=== PATIENT | female | born 2000 | race Caucasian/White ===

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

== ENCOUNTER 2020-01-21 21:35 | Emergency (ER) | payer OTHER ==
[2020-01-21 22:55] LABS: Basophils % (A) 0 %; Eosinophils # (A) 0.2 k/uL (0-0.7); Eosinophils % (A) 2 %; HCT 38.1 % (34.0-46.0); HGB 12.9 gm/dL (11.4-16.0); Lymphocytes # (A) 3.2 k/uL (1.0-4.8); Lymphocytes % (A) 26 %; MCHC 33.8 g/dL (31.0-37.0); Mean Platelet Volume 8.8; Monocytes # (A) 0.5 k/uL (0-1.0); Monocytes % (A) 4 %; Neutrophils # (A) 8.3 k/uL (1.3-7.7); Neutrophils % (A) 67 %; Platelet Count 222 k/uL (150-450); RBC 4.28 m/uL (3.80-5.40); WBC 12.3 k/uL (4.0-11.0)
[2020-01-21 23:05] LABS: African American GFR (CKD) >90 (>60 ml/min/1.73 sqM); Anion Gap 5 mmol/L; Blood Urea Nitrogen 12 mg/dL (7-17); Calcium 9.2 mg/dL (8.4-10.2); Carbon Dioxide 28 mmol/L (22-30); Chloride 103 mmol/L (98-107); Glucose 85 mg/dL (74-99); Non-African American GFR(CKD) >90 (>60 ml/min/1.73 sqM); Potassium 3.7 mmol/L (3.5-5.1); Sodium 136 mmol/L (137-145)
[2020-01-21 23:22] LABS: HCG,Quantitative Serum 570.1 mIU/mL
[2020-01-22 00:08] LABS: Amorphous Sediment,Urine Occasional /hpf; Appearance,Urine Cloudy (Clear); Bacteria,Urine Rare /hpf; Bilirubin,Urine Negative (Negative); Blood,Urine Large (Negative); Color,Urine Yellow; Glucose,Urine (UA) Negative (Negative); Ketones,Urine Negative (Negative); Leukocyte Esterase,Urine Trace (Negative); Mucus,Urine Rare /hpf; Nitrite,Urine Negative (Negative); PH, Urine 6.5 (5.0-8.0); Protein,Urine Negative (Negative); RBC,Urine 136 /hpf (0-5); Specific Gravity,Urine 1.019 (1.001-1.035); Squamous Epithelial Cell,Urine 1 /hpf (0-4); Urobilinogen,Urine <2.0 mg/dL (<2.0); WBC,Urine 3 /hpf (0-5)
--- NOTE | 2020-01-22 00:15 | ED ---
General Adult HPI - General Source: patient, RN notes reviewed, old records reviewed Mode of arrival: ambulatory Limitations: no limitations <Mariano Hicks - Last Filed: 01/22/20 00:14> <Wilber Wade - Last Filed: 01/22/20 01:23> - General Chief complaint: Vaginal Bleeding Stated complaint: Vaginal bleeding, 16wks preg Time Seen by Provider: 01/21/20 21:52 - History of Present Illness Initial comments: 19-year-old female patient 16 weeks per ultrasound presents ED for evaluation of vaginal bleeding. Patient was the vaginal bleeding started earlier today initially a spotting of the bleeding is again slightly more heavy passing some small clots. Patient also reports suprapubic cramping. It has any other complaints. Patient did receive RhoGAM approximately 6 weeks ago. ( Mariano Hicks) - Related Data Previous Rx's Medication Instructions Recorded Ketorolac [Toradol] 10 mg PO Q6HR #12 tab 10/04/15 Omeprazole 20 mg PO BID #20 cap 07/13/17 Ondansetron Odt [Zofran Odt] 4 mg PO Q8HR PRN #12 tab 07/13/17 Allergies Allergy/AdvReac Type Severity Reaction Status Date / Time venom-honey bee Allergy Unknown Verified 01/21/20 21:42 [bee venom (honey bee)] Review of Systems ROS Other: All systems not noted in ROS Statement are negative. <Mariano Hicks - Last Filed: 01/22/20 00:14> ROS Other: All systems not noted in ROS Statement are negative. <Wilber Wade - Last Filed: 01/22/20 01:23> ROS Statement: Those systems with pertinent positive or pertinent negative responses have been documented in the HPI. Past Medical History Past Medical History: No Reported History Additional Past Medical History / Comment(s): UTI,kidney stones. History of Any Multi-Drug Resistant Organisms: None Reported Additional Past Surgical History / Comment(s): pre-cancerous lesion removed from scalp 2009. Past Psychological History: No Psychological Hx Reported Smoking Status: Never smoker Past Alcohol Use History: None Reported Past Drug Use History: None Reported <Mariano Hicks - Last Filed: 01/22/20 00:14> General Exam Limitations: no limitations <Mariano Hicks - Last Filed: 01/22/20 00:14> Course Vital Signs 01/21/20 21:37 Temperature 99.1 F Pulse Rate 76 Respiratory 16 Rate Blood Pressure 134/72 O2 Sat by Pulse 100 Oximetry Medical Decision Making - Lab Data Result diagrams: 01/21/20 22:46 01/21/20 22:46 <Mariano Hicks - Last Filed: 01/22/20 00:14> - Lab Data Result diagrams: 01/21/20 22:46 01/21/20 22:46 <Wilber Wade - Last Filed: 01/22/20 01:23> - Medical Decision Making 19-year-old female patient 6 weeks presents ED for vaginal bleeding. Patient signed out to Dr. Sanchez pending ultrasound. (Mariano Hicks) - Lab Data Lab Results 01/21/20 01/21/20 01/21/20 Range/Units 22:46 22:46 22:46 WBC 12.3 H (4.0-11.0) k/uL RBC 4.28 (3.80-5.40) m/uL Hgb 12.9 (11.4-16.0) gm/dL Hct 38.1 (34.0-46.0) % MCV 89.0 (80.0-100.0) fL MCH 30.0 (25.0-35.0) pg MCHC 33.8 (31.0-37.0) g/dL RDW 12.0 (11.5-15.5) % Plt Count 222 (150-450) k/uL Neutrophils % 67 % Lymphocytes % 26 % Monocytes % 4 % Eosinophils % 2 % Basophils % 0 % Neutrophils # 8.3 H (1.3-7.7) k/uL Lymphocytes # 3.2 (1.0-4.8) k/uL Monocytes # 0.5 (0-1.0) k/uL Eosinophils # 0.2 (0-0.7) k/uL Basophils # 0.0 (0-0.2) k/uL Sodium 136 L (137-145) mmol/L Potassium 3.7 (3.5-5.1) mmol/L Chloride 103 (98-107) mmol/L Carbon Dioxide 28 (22-30) mmol/L Anion Gap 5 mmol/L BUN 12 (7-17) mg/dL Creatinine 0.46 L (0.52-1.04) mg/dL Est GFR (CKD-EPI)AfAm >90 (>60 ml/min/1.73 sqM) Est GFR (CKD-EPI)NonAf >90 (>60 ml/min/1.73 sqM) Glucose 85 (74-99) mg/dL Calcium 9.2 (8.4-10.2) mg/dL HCG, Quant 570.1 mIU/mL Urine Color Urine Appearance (Clear) Urine pH (5.0-8.0) Ur Specific Campbell (1.001-1.035) Urine Protein (Negative) Urine Glucose (UA) (Negative) Urine Ketones (Negative) Urine Blood (Negative) Urine Nitrite (Negative) Urine Bilirubin (Negative) Urine Urobilinogen (<2.0) mg/dL Ur Leukocyte Esterase (Negative) Urine RBC (0-5) /hpf Urine WBC (0-5) /hpf Ur Squamous Epith Cells (0-4) /hpf Amorphous Sediment (None) /hpf Urine Bacteria (None) /hpf Urine Mucus (None) /hpf Blood Type A Negative Blood Type Recheck A Neg Bld Type Recheck Status No 01/21/20 Range/Units 23:22 WBC (4.0-11.0) k/uL RBC (3.80-5.40) m/uL Hgb (11.4-16.0) gm/dL Hct (34.0-46.0) % MCV (80.0-100.0) fL MCH (25.0-35.0) pg MCHC (31.0-37.0) g/dL RDW (11.5-15.5) % Plt Count (150-450) k/uL Neutrophils % % Lymphocytes % % Monocytes % % Eosinophils % % Basophils % % Neutrophils # (1.3-7.7) k/uL Lymphocytes # (1.0-4.8) k/uL Monocytes # (0-1.0) k/uL Eosinophils # (0-0.7) k/uL Basophils # (0-0.2) k/uL Sodium (137-145) mmol/L Potassium (3.5-5.1) mmol/L Chloride (98-107) mmol/L Carbon Dioxide (22-30) mmol/L Anion Gap mmol/L BUN (7-17) mg/dL Creatinine (0.52-1.04) mg/dL Est GFR (CKD-EPI)AfAm (>60 ml/min/1.73 sqM) Est GFR (CKD-EPI)NonAf (>60 ml/min/1.73 sqM) Glucose (74-99) mg/dL Calcium (8.4-10.2) mg/dL HCG, Quant mIU/mL Urine Color Yellow Urine Appearance Cloudy H (Clear) Urine pH 6.5 (5.0-8.0) Ur Specific Campbell 1.019 (1.001-1.035) Urine Protein Negative (Negative) Urine Glucose (UA) Negative (Negative) Urine Ketones Negative (Negative) Urine Blood Large H (Negative) Urine Nitrite Negative (Negative) Urine Bilirubin Negative (Negative) Urine Urobilinogen <2.0 (<2.0) mg/dL Ur Leukocyte Esterase Trace H (Negative) Urine RBC 136 H (0-5) /hpf Urine WBC 3 (0-5) /hpf Ur Squamous Epith Cells 1 (0-4) /hpf Amorphous Sediment Occasional H (None) /hpf Urine Bacteria Rare H (None) /hpf Urine Mucus Rare H (None) /hpf Blood Type Blood Type Recheck Bld Type Recheck Status Disposition <Mariano Hicks - Last Filed: 01/22/20 00:14> Is patient prescribed a controlled substance at d/c from ED?: No <Wilber Wade - Last Filed: 01/22/20 01:23> Clinical Impression: Threatened Disposition: HOME SELF-CARE Condition: Good Instructions (If sedation given, give patient instructions): Threatened Miscarriage (ED) Referrals: Rohan Leblanc MD [Primary Care Provider] - 1-2 days Yoselin Saldivar DO [Doctor of Osteopathic Medicine] - 1-2 days
--- NOTE | 2020-01-22 00:21 | US ---
EXAMINATION TYPE: Transabdominal DATE OF EXAM: 01/21/2020 11:51 PM COMPARISON: US CLINICAL HISTORY: pain. Pain and bleeding x 7 hours. . EXAM PERFORMED: Transvaginal (TV) and Transabdominal (TA) EXAM MEASUREMENTS: GESTATIONAL AGE / DATING Physician Established: Not yet established Dates by LMP: (16 weeks/0 days) EDC: 07/07/2020 Dates by First Scan: (14 weeks/5 days) EDC: 07/16/2020 Dates by Current Scan for: (13 weeks/3 days) EDC: 07/25/2020 MATERNAL ANATOMY Uterus: 11.7 x 7.5 x 6.5 cm. Complex fluid-appearing area seen within the cervix measurin.4 x 0.9 x 0.2 cm. Complex area seen posterior to the uterus as mentioned below. Right Ovary: 3.1 x 2.6 x 2.2 cm. Area of mixed echogenicity seen measurin.2 x 1.2 x 1.0 cm. Left Ovary: 4.8 x 4.3 x 3.0 cm. Measures enlarged. Seen clearly only transabdominally. Area of mixed echogenicity seen measurin.4 x 3.4 x 2.5 cm Post CDS / Adnexa: Appear to be wnl. Presence of free fluid: not seen Presence of corpus luteal cyst: Area of mixed echogenicity seen right ovary measurin.2 x 1.2 x 1. 0 cm. Area of mixed echogenicity seen right ovary measurin.4 x 3.4 x 2.5 cm. GESTATION / SURVEY CRL: 7.29 cm. (13 weeks/3 days) Yolk Sac (normal less than 6mm): Not seen Heart Rate: 179 bpm Rhythm: Slightly elevated IUP: Viable IUP Date of LMP: 10/01/2019 Beta HcG (if available): 570.1 *Transvaginally, area of mixed echogenicity seen posterior to the uterus measuring approximately 3.8 x 3.7 x 3.6 cm. Limited due to shadowing. Possible left ovary. Left ovary not seen transvaginally. IMPRESSION: Ultrasound gestational age is 13 weeks and 3 days. Normal amniotic fluid. Minimal cervical fluid coul d be some active bleeding.
[2020-01-22 01:53] VITALS: BP 107/50; PULSE 66; RESP 17; TEMP 98.4
== END 2020-01-22 01:53 | disposition home or self-care (01) ==
LOC: EC 21:35
DX: O20.0 Threatened abortion (principal); Z3A.16 16 weeks gestation of pregnancy; Z91.030 Bee allergy status
CPT/HCPCS: 36415; 76801; 76817; 80048; 81001; 84702; 85025; 86850; 86870; 86880; 86900; 86901; 99284

== ENCOUNTER 2020-01-22 10:03 | Emergency (ER) | payer OTHER ==
[2020-01-22 10:12] VITALS: RESP 18; TEMP 98.4
[2020-01-22 11:40] LABS: Basophils # (A) 0.1 k/uL (0-0.2); Basophils % (A) 0 %; Eosinophils # (A) 0.1 k/uL (0-0.7); Eosinophils % (A) 1 %; HCT 38.1 % (34.0-46.0); HGB 13.1 gm/dL (11.4-16.0); Lymphocytes # (A) 1.7 k/uL (1.0-4.8); Lymphocytes % (A) 15 %; MCH 30.8 pg (25.0-35.0); MCHC 34.4 g/dL (31.0-37.0); MCV 89.6 fL (80.0-100.0); Mean Platelet Volume 8.3; Monocytes # (A) 0.4 k/uL (0-1.0); Monocytes % (A) 4 %; Neutrophils # (A) 8.8 k/uL (1.3-7.7); Neutrophils % (A) 79 %; Platelet Count 225 k/uL (150-450); RBC 4.25 m/uL (3.80-5.40); RDW 12.1 % (11.5-15.5); WBC 11.1 k/uL (4.0-11.0)
--- NOTE | 2020-01-22 11:43 | ED ---
Female Urogenital HPI - General Chief complaint: Vaginal Bleeding Stated complaint: Vaginal Bleeding Time Seen by Provider: 01/22/20 10:13 Source: patient Mode of arrival: ambulatory Limitations: no limitations - History of Present Illness Initial comments: Patient is a 19-year-old female presenting to the emergency Department with complaints of vaginal bleeding and possible miscarriage. Patient was just discharged from the ER very late last night. Patient is approximately 16 weeks , . Patient sees Dr. Saldivar. Patient did have an ultrasound last night which did confirm a viable IUP, heart rate 180. Patient states she woke up this morning with her bed covered in blood and then sat down on the toilet to go pee when she believes the fetus came out. Patient states since then she has been bleeding mildly. She has soaked one pad since early this morning. Patient is admitting to lower abdominal cramping. She denies any lightheadedness, dizziness, shortness of breath, chest pain. She has no other complaints at this time. Arrival to the ER, her vitals are stable. - Related Data Previous Rx's Medication Instructions Recorded Ketorolac [Toradol] 10 mg PO Q6HR #12 tab 10/04/15 Omeprazole 20 mg PO BID #20 cap 07/13/17 Ondansetron Odt [Zofran Odt] 4 mg PO Q8HR PRN #12 tab 07/13/17 Allergies Allergy/AdvReac Type Severity Reaction Status Date / Time venom-honey bee Allergy Unknown Verified 01/22/20 10:12 [bee venom (honey bee)] Review of Systems ROS Statement: Those systems with pertinent positive or pertinent negative responses have been documented in the HPI. ROS Other: All systems not noted in ROS Statement are negative. Past Medical History Past Medical History: No Reported History Additional Past Medical History / Comment(s): UTI,kidney stones. History of Any Multi-Drug Resistant Organisms: None Reported Additional Past Surgical History / Comment(s): pre-cancerous lesion removed from scalp 2009. Past Psychological History: No Psychological Hx Reported Smoking Status: Never smoker Past Alcohol Use History: None Reported Past Drug Use History: None Reported General Exam - General Exam Comments Initial Comments: GENERAL: Well-appearing, well-nourished and in no acute distress. HEAD: Atraumatic, normocephalic. EYES: Pupils equal round and reactive to light, extraocular movements intact, sclera anicteric, conjunctiva are normal. ENT: TMs normal, nares patent, oropharynx clear without exudates. Moist mucous membranes. NECK: Normal range of motion, supple without lymphadenopathy or JVD. LUNGS: Breath sounds clear to auscultation bilaterally and equal. No wheezes rales or rhonchi. HEART: Regular rate and rhythm without murmurs, rubs or gallops. ABDOMEN: Mild suprapubic tenderness. Soft, normoactive bowel sounds. No guarding, no rebound. No masses appreciated. EXTREMITIES: Normal range of motion, no pitting or edema. No clubbing or cyanosis. NEUROLOGICAL: Normal speech, normal gait. PSYCH: Normal mood, normal affect. SKIN: Warm, Dry, normal turgor, no rashes or lesions noted. Limitations: no limitations External exam: Present: normal external exam Speculum exam: Present: vaginal bleeding, other (Cervical os appears to be slightly open). Absent: foreign body By manual exam: Present: normal by manual exam Course Vital Signs 01/22/20 01/22/20 10:08 13:14 Temperature 98.4 F 98.4 F Pulse Rate 78 72 Respiratory 18 18 Rate Blood Pressure 105/80 102/79 O2 Sat by Pulse 98 98 Oximetry Medical Decision Making - Medical Decision Making Patient is a 19-year-old female here for possible miscarriage. Patient was in the ER yesterday for same complaint and ultrasound revealed viable IUP last night. Patient returned today after seeing the fetus in her toilet this morning. Ultrasound today did show no viable IUP in the uterus. I did speak with Dr. Saldivar who is okay with outpatient follow-up. Patient did receive Rhogam in November. Patient's vital signs remained stable. She denies dizziness, vomiting. Her hemoglobin is normal. Patient is stable for discharge. Strict return parameters were discussed with the patient she verbalized understanding. Case discussed with Dr. Michael. - Lab Data Result diagrams: 01/22/20 11:26 Lab Results 01/22/20 01/22/20 Range/Units 11:26 11:26 WBC 11.1 H (4.0-11.0) k/uL RBC 4.25 (3.80-5.40) m/uL Hgb 13.1 (11.4-16.0) gm/dL Hct 38.1 (34.0-46.0) % MCV 89.6 (80.0-100.0) fL MCH 30.8 (25.0-35.0) pg MCHC 34.4 (31.0-37.0) g/dL RDW 12.1 (11.5-15.5) % Plt Count 225 (150-450) k/uL Neutrophils % 79 % Lymphocytes % 15 % Monocytes % 4 % Eosinophils % 1 % Basophils % 0 % Neutrophils # 8.8 H (1.3-7.7) k/uL Lymphocytes # 1.7 (1.0-4.8) k/uL Monocytes # 0.4 (0-1.0) k/uL Eosinophils # 0.1 (0-0.7) k/uL Basophils # 0.1 (0-0.2) k/uL Blood Type A Negative Blood Type Recheck A Neg Bld Type Recheck Status No Antibody Screen POSITIVE Antibody Identification Anti-D Direct Antiglob Test Negative Spec Expiration Date 01/25/20202325 Disposition Clinical Impression: Complete miscarriage, Vaginal bleeding Disposition: HOME SELF-CARE Condition: Stable Instructions (If sedation given, give patient instructions): Miscarriage (ED) Additional Instructions: Please return to the Emergency Department if symptoms worsen or any other concerns. Follow up with Dr. Saldivar as discussed. Is patient prescribed a controlled substance at d/c from ED?: No Referrals: Rohan Leblanc MD [Primary Care Provider] - 1-2 days Yoselin Saldivar DO [Doctor of Osteopathic Medicine] - 1-2 days
--- NOTE | 2020-01-22 12:15 | US ---
EXAMINATION TYPE: Transabdominal DATE OF EXAM: 01/22/2020 11:51 AM COMPARISON: US 12 hours ago CLINICAL HISTORY: bleeding, possible miscarriage prior to arrival. Bleeding x 2 days EXAM PERFORMED: Transabdominal (TA) EXAM MEASUREMENTS: GESTATIONAL AGE / DATING Physician Established: Not established yet Dates by LMP: (16 weeks/1 days) EDC: 07/07/2020 Dates by First Scan: (14 weeks/6 days) EDC: 07/16/2020 Dates by Current Scan for: No IUP seen at this time MATERNAL ANATOMY Uterus: 11.0 x 3.7 x 5.6cm, anteverted Endometrium: 0.4cm Right Ovary: 2.7 x 2.1 x 2.9cm Left Ovary: 4.3 x 3.2 x 3.2cm Post CDS / Adnexa: wnl Presence of free fluid: no Presence of corpus luteal cyst: left ovary, 2.8 x 2.4 x 2.0cm Presence of subchorionic bleed: no GESTATION / SURVEY IUP: No IUP seen at this time Date of LMP: 10/01/2019 Beta HcG (if available): Not available at time of exam IMPRESSION: No intrauterine seen. There is a 2.8 cm left ovarian cyst. Differential diagnosis includes missed , or normal or to early to detect. Ectopic also in the differentia l diagnosis given the presence of a left ovarian cyst. Correlate with serial beta hCG and pelvic ultr asound as clinically warranted.
[2020-01-22 13:16] VITALS: BP 102/79; PULSE 72
== END 2020-01-22 13:16 | disposition home or self-care (01) ==
LOC: EC 10:03
DX: O03.9 Complete or unspecified spontaneous abortion without complication (principal); Z3A.16 16 weeks gestation of pregnancy; Z91.030 Bee allergy status
CPT/HCPCS: 36415; 76801; 85025; 86850; 86870; 86880; 86900; 86901; 99284

== ENCOUNTER 2020-05-11 15:45 | Day surgery (SDC) | payer OTHER ==
[2020-05-11] MEDS ORDERED: ONDANSETRON 4 MG/2 ML VIAL ONE (15:56)
[2020-05-11] MEDS ORDERED: ONDANSETRON 4 MG/2 ML VIAL IVP ONE ×3 (16:08→20:17)
[2020-05-11] MEDS ORDERED: LIDOCAINE 1% (10MG/ML) FOR IV START INTRADERMA ONE (16:08)
[2020-05-11] MEDS ORDERED: DEXAMETHASONE SOD PHOSPHATE 10 MG/ML 1 ML VIAL IV ONE (16:08)
[2020-05-11] MEDS ORDERED: LACTATED RINGERS 1,000 ML IV ONE ×3 (16:17→18:53)
[2020-05-11] MEDS ORDERED: BUPIVACAINE (PF) 0.25% 30 ML VIAL SQ ONE ×2 (16:33→18:02)
[2020-05-11] MEDS ORDERED: FAMOTIDINE 20 MG/2 ML VIAL IV ONE (16:34)
[2020-05-11] MEDS ORDERED: METOCLOPRAMIDE 5 MG/ML 2 ML VIAL ONE (16:35)
[2020-05-11] MEDS ORDERED: METOCLOPRAMIDE 5 MG/ML 2 ML VIAL IVP ONE (16:36)
[2020-05-11 16:46] LABS: Basophils # (A) 0.1 k/uL (0-0.2); Basophils % (A) 1 %; Eosinophils # (A) 0.2 k/uL (0-0.7); Eosinophils % (A) 2 %; HCT 39.5 % (34.0-46.0); HGB 13.2 gm/dL (11.4-16.0); Lymphocytes # (A) 2.3 k/uL (1.0-4.8); Lymphocytes % (A) 25 %; MCH 29.2 pg (25.0-35.0); MCHC 33.4 g/dL (31.0-37.0); MCV 87.4 fL (80.0-100.0); Mean Platelet Volume 8.5; Monocytes # (A) 0.5 k/uL (0-1.0); Monocytes % (A) 6 %; Neutrophils # (A) 5.8 k/uL (1.3-7.7); Neutrophils % (A) 64 %; Platelet Count 232 k/uL (150-450); RBC 4.52 m/uL (3.80-5.40); RDW 12.4 % (11.5-15.5)
[2020-05-11] MEDS ORDERED: MIDAZOLAM 2 MG/2 ML VIAL IV ONE (16:51)
[2020-05-11] MEDS ORDERED: LIDOCAINE 1% INJ 10MG/ML (20 ML MDV) ONE (16:54)
[2020-05-11] MEDS ORDERED: SUCCINYLCHOLINE CHLORIDE 100 MG/5 ML SYR IV ONE (16:54)
[2020-05-11] MEDS ORDERED: NEOSTIGMINE 1 MG/ML 10 ML VIAL ONE (16:54)
[2020-05-11] MEDS ORDERED: fentaNYL (PF) 50 MCG/ML 2 ML AMP ONE (16:54)
[2020-05-11] MEDS ORDERED: ROCURONIUM BROMIDE 10 MG/ML 5 ML VIAL IV ONE (16:54)
[2020-05-11] MEDS ORDERED: PROPOFOL 10 MG/ML 20 ML VIAL IV ONE (16:54)
[2020-05-11] MEDS ORDERED: HYDROmorphone (PF) 1 MG/ML ONE (16:54)
[2020-05-11] MEDS ORDERED: GLYCOPYRROLATE 0.2 MG/ML 2 ML VIAL ONE (16:54)
[2020-05-11] MEDS ORDERED: PHENYLEPHRINE-0.9% NACL SYG 1 MG/10 ML SYRINGE ONE (16:54)
[2020-05-11] MEDS ORDERED: HYDROmorphone 1 MG/ML 1 ML SYRINGE IVP ONE ×2 (18:23→18:29)
[2020-05-11] MEDS ORDERED: IBUPROFEN 600 MG TAB PO PRN (18:29)
[2020-05-11] MEDS ORDERED: diphenhydrAMINE 50 MG/ML 1 ML VIAL IVP PRN (18:29)
[2020-05-11] MEDS ORDERED: METOCLOPRAMIDE 5 MG/ML 2 ML VIAL IVP PRN (18:29)
[2020-05-11] MEDS ORDERED: SIMETHICONE 80 MG CHEWABLE PO PRN (18:29)
[2020-05-11] MEDS ORDERED: Acetaminophen-Codeine 300-30mg TAB PO PRN ×2 (18:29)
[2020-05-11] MEDS ORDERED: ONDANSETRON 4 MG/2 ML VIAL IVP PRN (18:29)
[2020-05-11] MEDS ORDERED: MEPERIDINE 50 MG/ML SYRINGE IVP ONE ×2 (18:37→18:42)
--- NOTE | 2020-05-11 18:38 | P.OP ---
Date of Procedure: 05/11/20 Preoperative Diagnosis: #1. Left ectopic Postoperative Diagnosis: Same plus #2. 5+ centimeter simple left ovarian cyst Procedure(s) Performed: #1. Diagnostic laparoscopy #2. Left partial salpingectomy #3. Drainage/decompression of left ovarian cyst Anesthesia: TIP Surgeon: Ace Richardson Estimated Blood Loss (ml): 5 IV fluids (ml): 800 Urine output (ml): 50 Pathology: other (Left tube and contents) Condition: stable Disposition: PACU Operative Findings: Preoperative pelvic examination demonstrated a roughly 4-5 week midplane mobile normal shaped uterus with normal right adnexa. Left adnexa did feel to be so mewhat dilated though mobile. Intraoperatively, there was noted to be a left ectopic occupying the entire length of the ampullary portion of the left fallopian tube to the point of near rupture in several places. The left ovary was significantly dilated with what appeared to be a 5+ centimeter simple left ovarian cyst which was ultimately drained of straw to brownish colored clear fluid. The right tube and ovary appeared to be normal although the tube itself appeared somewhat edematous. The uterus was entirely normal to inspection. Description of Procedure: The patient was prepped and draped in usual fashion after general endotracheal anesthesia was administered by the anesthesiologist. A speculum was placed and the anterior lip of the cervix grasped with a single-tooth tenaculum allowing placement of an acorn cannula for uterine manipulation. The bladder was drained of approximately 50 mL of clear eliceo urine after removal of the speculum. At tention was turned to the abdomen where a roughly 5 mm incision was made in the vertical fold of the umbilicus allowing insertion of a 5 mm optical trocar under direct visualization without difficulty. A pneumoperitoneum was established and Trendelenburg positioning utilized. A site was selected in the midline approximately 4-5 cm above the pubic symphysis where a half a centimeter incision was made in the transverse plane allowing insertion of a 5 mm trocar under direct visualization without difficulty. The blunt probe was utilized to sweep the bowel from the pelvis and the findings are as noted above. The decision was made at that time that the fallopian tube could not safely be saved without putting the patient at significant risk for subsequent ectopic . As results a site was selected in the left lower quadrant where initially a 5 mm incision was made in the transverse plane allowing insertion of a 5 mm trocar under direct visualization without difficulty. A [place] LigaSure device was placed through the left lower quadrant port and the fallopian tube elevated. During dissection of the fallopian tube, the LigaSure device failed and required replacement as it would not cauterize the tissue. The second tool worked properly and was utilized to remove the tube to just below the level of the ampulla and the ectopic . Reexamination of the bed demonstrated excellent hemostasis. A 5 mm Endobag was placed in the abdominal cavity and could not be properly opened. After struggling to attempt to get the specimen into the Endobag the decision was made to abandon the 5 mm option in the left lower quadrant port was replaced with a 10 mm port allowing insertion of a 10 mm Endobag into which the specimen was placed without difficulty and removed along with the trocar. Thorough suction irrigation was then carried out and hemostasis appeared to be excellent. The findings are as noted above with an essentially normal right side of the tube appeared somewhat edematous. All instrumentation was then removed after evacuating the pneumoperitoneum through the remaining ports. The skin incisions were reapproximated with interrupted subcuticular stitches of 4-0 Vicryl followed by half-inch Steri-Strips placed with Mastisol. The 3 incisions were infused with a total of 10 mL of quarter percent Marcaine without epinephrine equally divided between the 3 incisions. Estimated blood loss for the entire case was approximate 5 mL. The instrumentation was removed from the vagina. There were no complications. All sponge, instrument, needle counts were correct. The patient tolerated the procedure well and proceeded to the recovery room in stable condition.
[2020-05-11] MEDS: KETOROLAC 15 MG/ML 1 ML VIAL IVP PRN (19:26)
[2020-05-12] MEDS: KETOROLAC 15 MG/ML 1 ML VIAL IVP PRN ×2 (03:38→08:59)
[2020-05-12] MEDS: LACTATED RINGERS 1,000 ML IV SCH ×2 (03:40→04:19)
[2020-05-12 08:03] LABS: Basophils # (A) 0.1 k/uL (0-0.2); Basophils % (A) 1 %; Eosinophils # (A) 0.1 k/uL (0-0.7); Eosinophils % (A) 1 %; HCT 34.8 % (34.0-46.0); HGB 11.8 gm/dL (11.4-16.0); Lymphocytes # (A) 2.1 k/uL (1.0-4.8); Lymphocytes % (A) 26 %; MCH 29.8 pg (25.0-35.0); MCHC 33.9 g/dL (31.0-37.0); Mean Platelet Volume 8.1; Monocytes # (A) 0.5 k/uL (0-1.0); Monocytes % (A) 6 %; Neutrophils # (A) 5.3 k/uL (1.3-7.7); Neutrophils % (A) 65 %; Platelet Count 186 k/uL (150-450); RBC 3.95 m/uL (3.80-5.40); RDW 12.3 % (11.5-15.5); WBC 8.2 k/uL (4.0-11.0)
[2020-05-12] MEDS ORDERED: SODIUM CHLORIDE 0.9% 1,000 ML IV SCH (08:15)
[2020-05-12 08:36] VITALS: BP 106/72; PULSE 72; RESP 16; TEMP 98
--- NOTE | 2020-05-12 09:04 | P.DS ---
Providers Expected date of discharge: 05/12/20 Attending physician: Ace Richardson Consults: 05/11/20 22:27 Consult Physician Routine Consulting Provider: Malgorzata Langford Consult Reason/Comments: tachycardia Do you want consulting provider notified?: Yes, Notify in am Primary care physician: Deana Wallbal - Discharge Diagnosis(es) (1) Tachycardia Current Visit: Yes Status: Acute (2) Ectopic Current Visit: No Status: Acute Hospital Course: The patient is a 20-year-old 2 para 0010 admitted with a documented left ectopic . The was thought to be too large to be managed chemically or medically and the patient was counseled and taken to the operating room where she underwent left partial salpingectomy with drainage of a large ovarian cyst and an incompetent fashion. Following the procedure, she was found to have episodes of tachycardia to the 120s and 130s with no apparent etiology. She was otherwise essentially asymptomatic. Given the random episodes of tachycardia, the patient was admitted to the hospital for observation overnight and ultimately had a cardiology consult. She has undergone echocardiogram which is pending at this time but is otherwise asymptomatic. Her hemoglobin is/remains within normal limits and is not significantly different from preop hemoglobin. She has been deemed stable for discharge on postoperative day #1 will be discharged home to follow-up with me in the office in 2 weeks' time routinely. Discharge instructions include calling for any significantly increased pain, fever, GI or urinary complaints, incisional complaints, or anything else that concerned her. She was additionally instructed to have nothing in the vagina for at least 2 weeks' time until follow-up. She understood her instructions and agrees to follow-up as noted above. Discharge medications included her previously written prescription for Tylenol 3, 1-2 by mouth every 6 hours when necessary pain, #20 dispensed with no refills. Procedures: #1. Diagnostic laparoscopy with left partial salpingectomy and intraoperative drainage of left ovarian cyst #2. Cardiology consult Patient Condition at Discharge: Stable Plan - Discharge Summary Discharge Rx Participant: No Follow up Appointment(s)/Referral(s): Ace Richardson MD [STAFF PHYSICIAN] - 2 Weeks (PLEASE CALL FOR A FOLLOW UP APPOINTMENT) Patient Instructions/Handouts: *Surgery [facility] - (Anesthesia) Discharge Instructions Outpatient Surgery, Salpingectomy (DC) Activity/Diet/Wound Care/Special Instructions: take tylenol #3 with food. heat helps with cramping. nothing vaginally until you follow up with your doctor. Discharge Disposition: HOME SELF-CARE
--- NOTE | 2020-05-12 10:29 | P.CRDCN ---
History of Present Illness History of present illness: HISTORY OF PRESENTING ILLNESS This is a pleasant 20-year-old female past medical history significant for ectopic status post left partial salpingectomy. We have been asked to see in consultation for tachycardia. She came in yesterday for an elective laparoscopic left partial salpingectomy secondary to ectopic . Status post the procedure she was noted to be tachycardic. She was placed on the observation unit for further evaluation. Through the night she received IV fluids and her heart rate has come down to the 90s this morning. She is resting comfortably laying flat in bed in no acute distress. She is complaining of pelvic pain. She denies chest pain, dizziness, shortness of breath or palpitations. DIAGNOSTICS EKG reveals sinus tachycardia heart rate of 104. Laboratory reviewed, WBC 8.2, hemoglobin 11.8 down from 13.2 on admission yesterday and platelets 186. She takes no daily cardiac medications. REVIEW OF SYSTEMS At the time of my exam: CONSTITUTIONAL: Denies fever or chills. CARDIOVASCULAR: Denies chest pain, shortness of breath, orthopnea, PND or palpitations. RESPIRATORY: Denies cough. GASTROINTESTINAL: Complains of pelvic pain. Denies abdominal pain, diarrhea, constipation, nausea or vomiting. MUSCULOSKELETAL: Denies myalgias. NEUROLOGIC: Denies numbness, tingling or weakness. ENDOCRINE: Denies fatigue, weight change, polydipsia or polyurina. GENITOURINARY: Denies burning, hematuria or urgency with micturation. HEMATOLOGIC: Denies history of anemia or bleeding. PHYSICAL EXAMINATION Blood pressure 106/72 heart rate 72 afebrile and maintaining oxygen saturation on room air. CONSTITUTIONAL: No apparent distress. HEENT: Head is normocephalic. Pupils are equal, round. Sclerae anicteric. Mucous membranes of the mouth are moist. No JVD. No carotid bruit. CHEST EXAMINATION: Lungs are clear to auscultation. No chest wall tenderness is noted on palpation or with deep breathing. HEART EXAMINATION: Regular rate and rhythm. S1, S2 heard. No murmurs, gallops or rub. ABDOMEN: Soft, nontender. Positive bowel sounds. EXTREMITIES: 2+ peripheral pulses, no lower extremity edema and no calf tenderness. NEUROLOGIC EXAMINATION: Patient is awake, alert and oriented x3. ASSESSMENT Sinus tachycardia Ectopic Left partial salpingectomy, postoperative day #1 PLAN Continue with IV hydration with 0.9% normal saline at 150 mL per hour. Obtain 2-D echocardiogram and Doppler study to assess cardiac structure and function. Thank you kindly for this consultation. Nurse Practitioner note has been reviewed, I agree with a documented findings and plan of care. Patient was seen and examined. Past Medical History Past Medical History: No Reported History Additional Past Medical History / Comment(s): UTI,kidney stones. History of Any Multi-Drug Resistant Organisms: None Reported Additional Past Surgical History / Comment(s): pre-cancerous lesion removed from scalp 2009. Past Anesthesia/Blood Transfusion Reactions: No Reported Reaction Past Psychological History: No Psychological Hx Reported Smoking Status: Never smoker Past Alcohol Use History: None Reported Past Drug Use History: None Reported Medications and Allergies Allergies Allergy/AdvReac Type Severity Reaction Status Date / Time venom-honey bee Allergy Unknown Verified 05/11/20 15:53 [bee venom (honey bee)] Physical Exam Vitals: Vital Signs Temp Pulse Resp BP Pulse Ox 05/12/20 03:00 98.1 F 91 17 101/67 97 05/11/20 21:00 98.0 F 108 H 16 92/54 95 05/11/20 20:42 127 H 16 106/68 95 05/11/20 20:32 120 H 16 113/70 95 05/11/20 20:10 126 H 16 119/73 100 05/11/20 19:54 93 16 111/69 100 05/11/20 19:41 86 16 115/73 94 L 05/11/20 19:30 117 H 16 130/82 93 L 05/11/20 19:15 91 16 127/77 97 05/11/20 18:59 113 H 16 118/75 96 05/11/20 18:45 103 H 16 127/64 93 L 05/11/20 18:30 78 14 141/83 100 05/11/20 18:15 97.1 F L 79 20 133/85 100 05/11/20 15:58 98.5 F 94 16 119/68 100 Intake and Output 05/11/20 05/12/20 05/12/20 22:59 06:59 14:59 Intake Total 2850 1240 Output Total 55 Balance 2795 1240 Intake: IV 2850 Intake, IV Titration 1000 Amount Lactated Ringers 1,000 ml 1000 @ 100 mls/hr IV .Q10H KYAW Rx#:[id number] Oral 240 Output: Urine 50 Estimated Blood Loss 5 Other: Voiding Method Toilet Toilet # Voids 2 Weight 73 kg Results 05/12/20 07:49 CBC 05/11/20 05/12/20 Range/Units 16:05 07:49 WBC 9.0 8.2 (4.0-11.0) k/uL RBC 4.52 3.95 (3.80-5.40) m/uL Hgb 13.2 11.8 (11.4-16.0) gm/dL Hct 39.5 34.8 (34.0-46.0) % Plt Count 232 186 (150-450) k/uL Current Medications Generic Name Dose Route Start Last Admin Trade Name Freq PRN Reason Stop Dose Admin Acetaminophen/Codeine Phosphate 1 each 05/11/20 18:29 Acetaminophen-Codeine 300-30mg Tab PO Q4HR PRN Moderate Pain Acetaminophen/Codeine Phosphate 2 each 05/11/20 18:29 Acetaminophen-Codeine 300-30mg Tab PO Q6HR PRN Severe Pain Diphenhydramine HCl 25 mg 05/11/20 18:29 Diphenhydramine 50 Mg/Ml 1 Ml Vial IVP Q6HR PRN Itching Sodium Chloride 1,000 mls @ 150 mls/hr 05/12/20 08:15 05/12/20 08:25 Saline 0.9% IV 05/13/20 16:15 150 mls/hr .[id number] KYAW Administration Ibuprofen 600 mg 05/11/20 18:29 Ibuprofen 600 Mg Tab PO Q6HR PRN Mild Discomfort Ketorolac Tromethamine 15 mg 05/11/20 18:29 05/12/20 03:38 Ketorolac 15 Mg/Ml 1 Ml Vial IVP 05/14/20 18:30 15 mg Q6HR PRN Administration Mild Pain Metoclopramide HCl 10 mg 05/11/20 18:29 05/11/20 22:53 Metoclopramide 5 Mg/Ml 2 Ml Vial IVP 10 mg Q6HR PRN Administration Nausea or Vomiting Ondansetron HCl 4 mg 05/11/20 18:29 Ondansetron 4 Mg/2 Ml Vial IVP Q8HR PRN Nausea And Vomiting Simethicone 80 mg 05/11/20 18:29 Simethicone 80 Mg Chewable PO ACHS PRN Bloating Intake and Output 05/11/20 05/12/20 05/12/20 22:59 06:59 14:59 Intake Total 2850 1240 Output Total 55 Balance 2795 1240 Intake: IV 2850 Intake, IV Titration 1000 Amount Lactated Ringers 1,000 ml 1000 @ 100 mls/hr IV .Q10H KYAW Rx#:[id number] Oral 240 Output: Urine 50 Estimated Blood Loss 5 Other: Voiding Method Toilet Toilet # Voids 2 Weight 73 kg 05/12/20 07:49
--- NOTE | 2020-05-12 11:00 | ECHOF ---
Referral Reason:tachycardia MEASUREMENTS -------- HEIGHT: 147.3 cm WEIGHT: 72.6 kg BP: 101/67 RVIDd: 3.6 cm (< 3.3) IVSd: 0.8 cm (0.6 - 1.1) LVIDd: 3.9 cm (3.9 - 5.3) LVPWd: 0.9 cm (0.6 - 1.1) IVSs: 1.6 cm LVIDs: 2.1 cm LVPWs: 1.4 cm LAESV Index (A-L): 27.71 ml/m Ao Diam: 2.3 cm (2.0 - 3.7) AV Cusp: 1.7 cm (1.5 - 2.6) MV EXCURSION: 15.184 mm (> 18.000) MV EF SLOPE: 82 mm/s (70 - 150) EPSS: 0.5 cm MV E Carlo: 1.02 m/s MV DecT: 268 ms MV A Carlo: 0.36 m/s MV E/A Ratio: 2.82 RAP: 5.00 mmHg RVSP: 23.86 mmHg FINDINGS -------- This was a technically adequate study. The left ventricular size is normal. Left ventricular wall thickness is normal. There is normal g lobal left ventricular contractility. Overall left ventricular systolic function is normal with, an EF between 55 - 60 %. The diastolic filling pattern is normal for the age of the patient 8.13. The right ventricle is mildly enlarged. Normal LA size by volume 22+/-6 ml/m2. The right atrial size is normal. Interatrial and interventricular septum intact. There is no evidence of aortic regurgitation. There is no evidence of aortic stenosis. There is trace to mild mitral regurgitation. Mild tricuspid regurgitation present. There is no evidence of pulmonary hypertension. The right v entricular systolic pressure, as measured by Doppler, is 23.86mmHg. Trace/mild (physiologic) pulmonic regurgitation. The aortic root size is normal. IVC Not well visulized. There is no pericardial effusion. CONCLUSIONS -------- 1. The left ventricular size is normal. 2. Left ventricular wall thickness is normal. 3. There is normal global left ventricular contractility. 4. Overall left ventricular systolic function is normal with, an EF between 55 - 60 %. 5. The diastolic filling pattern is normal for the age of the patient 8.13 6. The right ventricle is mildly enlarged. 7. There is trace to mild mitral regurgitation. 8. Mild tricuspid regurgitation present. 9. Trace/mild (physiologic) pulmonic regurgitation. 10. There is no pericardial effusion. COPY LATHE OPERATOR: Isis Leija RDCS
[2020-05-12 11:06] LABS: African American GFR (CKD) >90 (>60 ml/min/1.73 sqM); Anion Gap 2 mmol/L; Blood Urea Nitrogen 5 mg/dL (7-17); Calcium 8.2 mg/dL (8.4-10.2); Carbon Dioxide 27 mmol/L (22-30); Chloride 108 mmol/L (98-107); Glucose 85 mg/dL (74-99); Magnesium 1.6 mg/dL (1.6-2.3); Non-African American GFR(CKD) >90 (>60 ml/min/1.73 sqM); Potassium 3.9 mmol/L (3.5-5.1); Sodium 137 mmol/L (137-145)
== END 2020-05-12 11:53 | disposition home or self-care (01) ==
LOC: OR 15:45 → 3NCARDOBS 18:21 → OR 05-12 11:53
PROVIDERS: ATTEND Obstetrics & Gynecology
DX: O00.102 Left tubal pregnancy without intrauterine pregnancy (principal); N83.292 Other ovarian cyst, left side; R00.0 Tachycardia, unspecified; Z87.442 Personal history of urinary calculi; Z91.030 Bee allergy status; Z82.61 Family history of arthritis; Z80.9 Family history of malignant neoplasm, unspecified
CPT/HCPCS: 93306; 86900; 86901; 88305; 80048; 84443; 83735; 85025 ×2; 86850; 86870; 86880; 59151; J2250; J2710; J2765; J2175; J2405; J2001; J3010; J1170; J1885 ×2; J2370; J0330; J2704

== ENCOUNTER → 2020-05-11 | Outpatient (CLI) | payer OTHER ==
--- NOTE | 2020-05-11 14:43 | US ---
EXAMINATION TYPE: Transabdominal DATE OF EXAM: 05/11/2020 1:31 PM COMPARISON: NONE CLINICAL HISTORY: R68.89 Abnormal clinical finding LLQ PAIN. Pain LLQ EXAM PERFORMED: Transvaginal (TV) and Transabdominal (TA) EXAM MEASUREMENTS: GESTATIONAL AGE / DATING Physician Established: Not yet established Dates by LMP: (5 weeks/5 days) EDC: 01/06/2021 Dates by First Scan: No previous this is first scan Dates by Current Scan for: No IUP seen at this time MATERNAL ANATOMY Uterus: 9.8 x 5.6 x 6.1 cm Right Ovary: 3.5 x 2.7 x 2.9 cm Left Ovary: 5.6 x 5.5 x 5.3 cm Post CDS / Adnexa: wnl Presence of free fluid: no Presence of corpus luteal cyst: no Presence of subchorionic bleed: no GESTATION / SURVEY IUP: No IUP seen at this time Left complex cystic area with a hypoechoic area within can't rule out ectopic. Beta HcG (if available): Not available at this time Heterogeneous uterus. Endometrial stripe is thickened to 11 mm. No gestational sac, yolk sac, or feta l pole seen. No free fluid in pelvic cul-de-sac. Right ovary is normal in size and grossly unremarkable. In the left adnexa there is a larger cystic l esion measuring 5.4 x 4.9 x 4.6 cm. Within this there is a peripherally elongated hyperechoic area me asuring roughly 2.2 cm long axis. heart tones cannot be detected. There is suggestion of some s urrounding ovarian tissue. Normal or abnormal left ovary is not identified distinct from this lesion. IMPRESSION: Findings strongly suggestive of ectopic as detailed above. Correlate clinically and with beta-hCG values. Left ovary noted normal in size January 21, 2020 making possibility of a solid and cystic left ovarian mass or neoplasm unlikely. Cannot definitively localize ectopic ou tside left ovary on images saved. Case discussed with ordering assistant professor of psychology via telephone at time of dictation A Document Only message has been documented for Ace Richardson MD in the [employer] system on 05/11/2020 2:39 PM, Message ID [id number].
== END | disposition home or self-care (01) ==
LOC: RADUSWWP 13:00
PROVIDERS: ATTEND Obstetrics & Gynecology
DX: O46.91 Antepartum hemorrhage, unspecified, first trimester (principal)
CPT/HCPCS: 76801; 76817; 84702

== ENCOUNTER 2020-05-13 07:06 | Emergency (ER) | payer OTHER ==
[2020-05-13 07:14] VITALS: TEMP 98
[2020-05-13] MEDS ORDERED: SODIUM CHLORIDE 0.9% 1,000 ML IV ONE (07:25)
--- NOTE | 2020-05-13 07:26 | ED ---
Female Urogenital HPI - General Chief complaint: Urogenital Stated complaint: post op-vaginal bleeding Time Seen by Provider: 05/13/20 07:15 Source: patient Mode of arrival: ambulatory Limitations: no limitations - Related Data Allergies Allergy/AdvReac Type Severity Reaction Status Date / Time venom-honey bee Allergy Unknown Verified 05/11/20 15:53 [bee venom (honey bee)] Review of Systems ROS Statement: Those systems with pertinent positive or pertinent negative responses have been documented in the HPI. ROS Other: All systems not noted in ROS Statement are negative. Past Medical History Past Medical History: No Reported History Additional Past Medical History / Comment(s): UTI,kidney stones. History of Any Multi-Drug Resistant Organisms: None Reported Additional Past Surgical History / Comment(s): pre-cancerous lesion removed from scalp 2009. Past Anesthesia/Blood Transfusion Reactions: No Reported Reaction Past Psychological History: No Psychological Hx Reported Smoking Status: Never smoker Past Alcohol Use History: None Reported Past Drug Use History: None Reported General Exam Limitations: no limitations Course Vital Signs 05/13/20 07:12 Temperature 98.0 F Pulse Rate 71 Respiratory 16 Rate Blood Pressure 116/77 O2 Sat by Pulse 98 Oximetry Disposition Referrals: Rohan Leblanc MD [Primary Care Provider] - 1-2 days
--- NOTE | 2020-05-13 07:32 | ED ---
Female Urogenital HPI - General Chief complaint: Urogenital Stated complaint: post op-vaginal bleeding Time Seen by Provider: 05/13/20 07:15 Source: patient Mode of arrival: ambulatory Limitations: no limitations - History of Present Illness Initial comments: 20-year-old female POD #2 s/p left sided partial salpinectomy performed on 05/11/[address] Richardson due to an ectopic . Patietn states she has bleeding Monday, diagnosed Friday 05/11 with ectopic and taken to the OR that day. Patient admits to vaginal bleeding since the procedure but states it was more so like a light period, today at 3:30AM patient states she had cramping and increasing bleeding, much heavier than a period with large clots, soaking >1pad an hour. Patient denies severe pain, presyncope, lightheaded, dizziness, nausea, vomiting, fevers. Patient on arrival does in no distress. HR WNL, BP stable. - Related Data Home Medications Medication Instructions Recorded Confirmed Acetaminophen-Codeine 300-30mg 1 - 2 tab PO Q6H PRN 05/13/20 05/13/20 [Tylenol w/codeine #3] Allergies Allergy/AdvReac Type Severity Reaction Status Date / Time venom-honey bee Allergy Unknown Verified 05/13/20 08:04 [bee venom (honey bee)] Review of Systems ROS Statement: Those systems with pertinent positive or pertinent negative responses have been documented in the HPI. ROS Other: All systems not noted in ROS Statement are negative. Past Medical History Past Medical History: No Reported History Additional Past Medical History / Comment(s): UTI,kidney stones. History of Any Multi-Drug Resistant Organisms: None Reported Additional Past Surgical History / Comment(s): pre-cancerous lesion removed from scalp 2009. Past Anesthesia/Blood Transfusion Reactions: No Reported Reaction Past Psychological History: No Psychological Hx Reported Smoking Status: Never smoker Past Alcohol Use History: None Reported Past Drug Use History: None Reported General Exam - General Exam Comments Initial Comments: General: The patient is awake and alert, in no distress Eye: +3 mm pupils are equal, round and reactive to light, extra-ocular movements are intact. No nystagmus. There is normal conjunctiva bilaterally. No signs of icterus. Ears, nose, mouth and throat: There are moist mucous membranes and no oral lesions. Neck: The neck is supple, there is no tenderness or JVD. Cardiovascular: There is a regular rate and rhythm. No murmur, rub or gallop is appreciated. Respiratory: Lungs are clear to auscultation, respirations are non-labored, breath sounds are equal. No wheezes, stridor, rales, or rhonchi. Gastrointestinal: Soft, non-distended, lower pelvic discomfort abdomen without masses or organomegaly noted. There is no rebound or guarding present. : There is mild/moderate vaginal bleeding, no large clots, tenderness. Musculoskeletal: Normal ROM, no tenderness. Strength 5/5. Sensation intact. Radial pulses equal bilaterally 2+. Neurological: A&O x 3. CN II-XII intact grossly, There are no obvious motor or sensory deficits. Coordination appears grossly intact. Speech is normal. Skin: Skin is warm and dry and no rashes or lesions are noted. Psychiatric: Cooperative, appropriate mood & affect, normal judgment. Limitations: no limitations Course Vital Signs 05/13/20 05/13/20 05/13/20 07:12 08:14 09:04 Temperature 98.0 F 98.0 F Pulse Rate 71 71 Pulse Rate [ 79 Left Sitting Pulse Oximetery ] Pulse Rate [ 80 Left Standing Pulse Oximetery ] Pulse Rate [ 89 Pulse Oximetery ] Respiratory 16 20 20 Rate Blood Pressure 116/77 116/77 Blood Pressure 112/77 [Left Arm Sitting] Blood Pressure 108/71 [Left Arm Standing] Blood Pressure 111/62 [Left Arm Supine] O2 Sat by Pulse 98 99 99 Oximetry Medical Decision Making - Medical Decision Making VS stable. not orthostatic, bleeding considered mild/moderate, does not endorse severe pain. OB consulted. recommend d/c with return parameters. Return parameters discussed patient discharged appearing well. Noreen ruiz spoke with OB is agreeable to care plan as is patient stating she didnt really want to come in but her boyfriend made her. - Lab Data Result diagrams: 05/13/20 07:49 05/13/20 07:49 Lab Results 05/13/20 05/13/20 05/13/20 Range/Units 07:49 07:49 07:49 WBC 7.5 (4.0-11.0) k/uL RBC 4.28 (3.80-5.40) m/uL Hgb 12.8 (11.4-16.0) gm/dL Hct 37.2 (34.0-46.0) % MCV 86.8 (80.0-100.0) fL MCH 29.9 (25.0-35.0) pg MCHC 34.5 (31.0-37.0) g/dL RDW 12.3 (11.5-15.5) % Plt Count 214 (150-450) k/uL Neutrophils % 47 % Lymphocytes % 43 % Monocytes % 6 % Eosinophils % 3 % Basophils % 1 % Neutrophils # 3.5 (1.3-7.7) k/uL Lymphocytes # 3.2 (1.0-4.8) k/uL Monocytes # 0.4 (0-1.0) k/uL Eosinophils # 0.2 (0-0.7) k/uL Basophils # 0.1 (0-0.2) k/uL PT (9.0-12.0) sec INR (<1.2) APTT (22.0-30.0) sec Sodium 137 (137-145) mmol/L Potassium 4.2 (3.5-5.1) mmol/L Chloride 107 (98-107) mmol/L Carbon Dioxide 25 (22-30) mmol/L Anion Gap 5 mmol/L BUN 6 L (7-17) mg/dL Creatinine 0.55 (0.52-1.04) mg/dL Est GFR (CKD-EPI)AfAm >90 (>60 ml/min/1.73 sqM) Est GFR (CKD-EPI)NonAf >90 (>60 ml/min/1.73 sqM) Glucose 103 H (74-99) mg/dL Calcium 8.7 (8.4-10.2) mg/dL Total Bilirubin 0.7 (0.2-1.3) mg/dL AST 47 H (14-36) U/L ALT 51 H (4-34) U/L Alkaline Phosphatase 47 (38-126) U/L Total Protein 6.7 (6.3-8.2) g/dL Albumin 3.8 (3.5-5.0) g/dL Urine Color Yellow Urine Appearance Clear (Clear) Urine pH 6.5 (5.0-8.0) Ur Specific [place] 1.012 (1.001-1.035) Urine Protein Negative (Negative) Urine Glucose (UA) Negative (Negative) Urine Ketones Negative (Negative) Urine Blood Large H (Negative) Urine Nitrite Negative (Negative) Urine Bilirubin Negative (Negative) Urine Urobilinogen <2.0 (<2.0) mg/dL Ur Leukocyte Esterase Negative (Negative) Urine RBC >182 H (0-5) /hpf Urine WBC 1 (0-5) /hpf Ur Squamous Epith Cells 1 (0-4) /hpf Urine Bacteria Rare H (None) /hpf Hyaline Casts 1 (0-2) /lpf Urine Mucus Rare H (None) /hpf 05/13/20 Range/Units 07:49 WBC (4.0-11.0) k/uL RBC (3.80-5.40) m/uL Hgb (11.4-16.0) gm/dL Hct (34.0-46.0) % MCV (80.0-100.0) fL MCH (25.0-35.0) pg MCHC (31.0-37.0) g/dL RDW (11.5-15.5) % Plt Count (150-450) k/uL Neutrophils % % Lymphocytes % % Monocytes % % Eosinophils % % Basophils % % Neutrophils # (1.3-7.7) k/uL Lymphocytes # (1.0-4.8) k/uL Monocytes # (0-1.0) k/uL Eosinophils # (0-0.7) k/uL Basophils # (0-0.2) k/uL PT 9.8 (9.0-12.0) sec INR 0.9 (<1.2) APTT 20.0 L (22.0-30.0) sec Sodium (137-145) mmol/L Potassium (3.5-5.1) mmol/L Chloride (98-107) mmol/L Carbon Dioxide (22-30) mmol/L Anion Gap mmol/L BUN (7-17) mg/dL Creatinine (0.52-1.04) mg/dL Est GFR (CKD-EPI)AfAm (>60 ml/min/1.73 sqM) Est GFR (CKD-EPI)NonAf (>60 ml/min/1.73 sqM) Glucose (74-99) mg/dL Calcium (8.4-10.2) mg/dL Total Bilirubin (0.2-1.3) mg/dL AST (14-36) U/L ALT (4-34) U/L Alkaline Phosphatase (38-126) U/L Total Protein (6.3-8.2) g/dL Albumin (3.5-5.0) g/dL Urine Color Urine Appearance (Clear) Urine pH (5.0-8.0) Ur Specific [place] (1.001-1.035) Urine Protein (Negative) Urine Glucose (UA) (Negative) Urine Ketones (Negative) Urine Blood (Negative) Urine Nitrite (Negative) Urine Bilirubin (Negative) Urine Urobilinogen (<2.0) mg/dL Ur Leukocyte Esterase (Negative) Urine RBC (0-5) /hpf Urine WBC (0-5) /hpf Ur Squamous Epith Cells (0-4) /hpf Urine Bacteria (None) /hpf Hyaline Casts (0-2) /lpf Urine Mucus (None) /hpf Disposition Clinical Impression: Vaginal bleeding, Post-op bleeding Disposition: HOME SELF-CARE Condition: Good Instructions (If sedation given, give patient instructions): Dysfunctional Uterine Bleeding (ED) Additional Instructions: Please use medication as discussed. Please follow-up with OBGYN in next week. Return for lightheadedness, increasing bleeding, syncope, pre-syncope. Please return to emergency room if the symptoms increase or worsen or for any other concerns. Is patient prescribed a controlled substance at d/c from ED?: No Referrals: Rohan Leblanc MD [Primary Care Provider] - 1-2 days Ace Richardson MD [Family Provider] - 1-2 days Time of Disposition: 08:57
[2020-05-13 07:58] LABS: Basophils # (A) 0.1 k/uL (0-0.2); Basophils % (A) 1 %; Eosinophils # (A) 0.2 k/uL (0-0.7); Eosinophils % (A) 3 %; HCT 37.2 % (34.0-46.0); HGB 12.8 gm/dL (11.4-16.0); Lymphocytes # (A) 3.2 k/uL (1.0-4.8); Lymphocytes % (A) 43 %; MCH 29.9 pg (25.0-35.0); MCHC 34.5 g/dL (31.0-37.0); MCV 86.8 fL (80.0-100.0); Mean Platelet Volume 8.4; Monocytes # (A) 0.4 k/uL (0-1.0); Monocytes % (A) 6 %; Neutrophils # (A) 3.5 k/uL (1.3-7.7); Neutrophils % (A) 47 %; Platelet Count 214 k/uL (150-450); RBC 4.28 m/uL (3.80-5.40); RDW 12.3 % (11.5-15.5); WBC 7.5 k/uL (4.0-11.0)
[2020-05-13 08:09] LABS: ALT 51 U/L (4-34); African American GFR (CKD) >90 (>60 ml/min/1.73 sqM); Anion Gap 5 mmol/L; Blood Urea Nitrogen 6 mg/dL (7-17); Calcium 8.7 mg/dL (8.4-10.2); Carbon Dioxide 25 mmol/L (22-30); Chloride 107 mmol/L (98-107); Glucose 103 mg/dL (74-99); Non-African American GFR(CKD) >90 (>60 ml/min/1.73 sqM); Sodium 137 mmol/L (137-145); Total Bilirubin 0.7 mg/dL (0.2-1.3)
[2020-05-13 08:11] LABS: AST 47 U/L (14-36); Albumin 3.8 g/dL (3.5-5.0); Alkaline Phosphatase 47 U/L (38-126); Potassium 4.2 mmol/L (3.5-5.1); Total Protein 6.7 g/dL (6.3-8.2)
[2020-05-13 08:16] LABS: Appearance,Urine Clear (Clear); Bacteria,Urine Rare /hpf; Bilirubin,Urine Negative (Negative); Blood,Urine Large (Negative); Color,Urine Yellow; Glucose,Urine (UA) Negative (Negative); Hyaline Casts,Urine 1 /lpf (0-2); Ketones,Urine Negative (Negative); Leukocyte Esterase,Urine Negative (Negative); Mucus,Urine Rare /hpf; Nitrite,Urine Negative (Negative); PH, Urine 6.5 (5.0-8.0); Protein,Urine Negative (Negative); RBC,Urine >182 /hpf (0-5); Specific Gravity,Urine 1.012 (1.001-1.035); Squamous Epithelial Cell,Urine 1 /hpf (0-4); Urobilinogen,Urine <2.0 mg/dL (<2.0); WBC,Urine 1 /hpf (0-5)
[2020-05-13 08:23] LABS: INR 0.9 (<1.2); Prothrombin Time 9.8 sec (9.0-12.0)
[2020-05-13 08:54] VITALS: RESP 20
[2020-05-13 09:05] VITALS: BP 116/77; PULSE 71
== END 2020-05-13 09:07 | disposition home or self-care (01) ==
LOC: EC 07:06
DX: N93.9 Abnormal uterine and vaginal bleeding, unspecified (principal); N99.820 Postprocedural hemorrhage of a genitourinary system organ or structure following a genitourinary system procedure; Z91.030 Bee allergy status
CPT/HCPCS: 36415; 80053; 81001; 85025; 85610; 85730; 96360; 99284

== ENCOUNTER 2020-08-13 03:32 | Emergency (ER) | payer OTHER ==
[2020-08-13 03:40] VITALS: RESP 18
[2020-08-13] MEDS ORDERED: SODIUM CHLORIDE 0.9% 1,000 ML IV STA (04:03)
[2020-08-13] MEDS ORDERED: MORPHINE SULFATE 4 MG/ML SYRINGE IV STA (04:03)
[2020-08-13] MEDS: KETOROLAC 15 MG/ML 1 ML VIAL IVP STA ×2 (04:11→04:13)
--- NOTE | 2020-08-13 04:16 | ED ---
Abdominal Pain HPI - General Chief Complaint: Abdominal Pain Stated Complaint: Abd Pain Time Seen by Provider: 08/13/20 03:40 Source: patient, RN notes reviewed, old records reviewed Mode of arrival: ambulatory Limitations: no limitations - History of Present Illness MD Complaint: abdominal pain (RLQ) -: hour(s) Location: RLQ, suprapubic Radiation: RLQ Severity: severe Severity scale (1-10): 8 Quality: cramping, stabbing Consistency: constant Improves With: nothing Worsens With: nothing Associated Symptoms: nausea - Related Data Home Medications Medication Instructions Recorded Confirmed Acetaminophen-Codeine 300-30mg 1 - 2 tab PO Q6H PRN 05/13/20 05/13/20 [Tylenol w/codeine #3] Allergies Allergy/AdvReac Type Severity Reaction Status Date / Time morphine Allergy Rash/Hives Verified 08/13/20 04:19 venom-honey bee Allergy Unknown Verified 08/13/20 03:40 [bee venom (honey bee)] Review of Systems ROS Statement: Those systems with pertinent positive or pertinent negative responses have been documented in the HPI. ROS Other: All systems not noted in ROS Statement are negative. Past Medical History Past Medical History: No Reported History Additional Past Medical History / Comment(s): UTI,kidney stones. History of Any Multi-Drug Resistant Organisms: None Reported Additional Past Surgical History / Comment(s): pre-cancerous lesion removed from scalp 2009. Left tubal removal 04/2020 Past Anesthesia/Blood Transfusion Reactions: No Reported Reaction Past Psychological History: No Psychological Hx Reported Smoking Status: Never smoker Past Alcohol Use History: None Reported Past Drug Use History: None Reported General Exam Limitations: no limitations General appearance: alert, in no apparent distress Head exam: Present: atraumatic, normocephalic, normal inspection Eye exam: Present: normal appearance, PERRL, EOMI. Absent: scleral icterus, conjunctival injection, periorbital swelling ENT exam: Present: normal exam, mucous membranes moist Neck exam: Present: normal inspection. Absent: tenderness, meningismus, lymphadenopathy Respiratory exam: Present: normal lung sounds bilaterally. Absent: respiratory distress, wheezes, rales, rhonchi, stridor Cardiovascular Exam: Present: regular rate, normal rhythm, normal heart sounds. Absent: systolic murmur, diastolic murmur, rubs, gallop, clicks GI/Abdominal exam: Present: soft, normal bowel sounds. Absent: distended, tenderness, guarding, rebound, rigid Extremities exam: Present: normal inspection, full ROM, normal capillary refill. Absent: tenderness, pedal edema, joint swelling, calf tenderness Back exam: Present: normal inspection Neurological exam: Present: alert, oriented X3, CN II-XII intact Psychiatric exam: Present: normal affect, normal mood Skin exam: Present: warm, dry, intact, normal color. Absent: rash Course Vital Signs 08/13/20 03:36 Temperature 98.1 F Pulse Rate 94 Respiratory 18 Rate Blood Pressure 146/98 O2 Sat by Pulse 96 Oximetry Medical Decision Making - Lab Data Result diagrams: 08/13/20 04:07 08/13/20 04:07 Lab Results 08/13/20 08/13/20 08/13/20 Range/Units 04:07 04:07 04:07 WBC 13.2 H (4.0-11.0) k/uL RBC 4.67 (3.80-5.40) m/uL Hgb 14.1 (11.4-16.0) gm/dL Hct 41.0 (34.0-46.0) % MCV 87.7 (80.0-100.0) fL MCH 30.2 (25.0-35.0) pg MCHC 34.4 (31.0-37.0) g/dL RDW 11.8 (11.5-15.5) % Plt Count 259 (150-450) k/uL MPV 8.3 Neutrophils % 62 % Lymphocytes % 29 % Monocytes % 5 % Eosinophils % 2 % Basophils % 1 % Neutrophils # 8.2 H (1.3-7.7) k/uL Lymphocytes # 3.8 (1.0-4.8) k/uL Monocytes # 0.6 (0-1.0) k/uL Eosinophils # 0.2 (0-0.7) k/uL Basophils # 0.1 (0-0.2) k/uL Sodium (137-145) mmol/L Potassium (3.5-5.1) mmol/L Chloride (98-107) mmol/L Carbon Dioxide (22-30) mmol/L Anion Gap mmol/L BUN (7-17) mg/dL Creatinine (0.52-1.04) mg/dL Est GFR (CKD-EPI)AfAm (>60 ml/min/1.73 sqM) Est GFR (CKD-EPI)NonAf (>60 ml/min/1.73 sqM) Glucose (74-99) mg/dL Calcium (8.4-10.2) mg/dL Total Bilirubin (0.2-1.3) mg/dL AST (14-36) U/L ALT (4-34) U/L Alkaline Phosphatase (38-126) U/L Total Protein (6.3-8.2) g/dL Albumin (3.5-5.0) g/dL Amylase (30-110) U/L Lipase (23-300) U/L Urine Color Yellow Urine Appearance Clear (Clear) Urine pH 6.5 (5.0-8.0) Ur Specific [place] 1.025 (1.001-1.035) Urine Protein Negative (Negative) Urine Glucose (UA) Negative (Negative) Urine Ketones Trace H (Negative) Urine Blood Negative (Negative) Urine Nitrite Negative (Negative) Urine Bilirubin Negative (Negative) Urine Urobilinogen <2.0 (<2.0) mg/dL Ur Leukocyte Esterase Negative (Negative) Urine HCG, Qual Not Detected (Not Detectd) 08/13/20 Range/Units 04:07 WBC (4.0-11.0) k/uL RBC (3.80-5.40) m/uL Hgb (11.4-16.0) gm/dL Hct (34.0-46.0) % MCV (80.0-100.0) fL MCH (25.0-35.0) pg MCHC (31.0-37.0) g/dL RDW (11.5-15.5) % Plt Count (150-450) k/uL MPV Neutrophils % % Lymphocytes % % Monocytes % % Eosinophils % % Basophils % % Neutrophils # (1.3-7.7) k/uL Lymphocytes # (1.0-4.8) k/uL Monocytes # (0-1.0) k/uL Eosinophils # (0-0.7) k/uL Basophils # (0-0.2) k/uL Sodium 138 (137-145) mmol/L Potassium 3.9 (3.5-5.1) mmol/L Chloride 105 (98-107) mmol/L Carbon Dioxide 27 (22-30) mmol/L Anion Gap 6 mmol/L BUN 14 (7-17) mg/dL Creatinine 0.78 (0.52-1.04) mg/dL Est GFR (CKD-EPI)AfAm >90 (>60 ml/min/1.73 sqM) Est GFR (CKD-EPI)NonAf >90 (>60 ml/min/1.73 sqM) Glucose 98 (74-99) mg/dL Calcium 9.4 (8.4-10.2) mg/dL Total Bilirubin 0.4 (0.2-1.3) mg/dL AST 24 (14-36) U/L ALT 21 (4-34) U/L Alkaline Phosphatase 73 (38-126) U/L Total Protein 7.2 (6.3-8.2) g/dL Albumin 4.2 (3.5-5.0) g/dL Amylase 49 (30-110) U/L Lipase 102 (23-300) U/L Urine Color Urine Appearance (Clear) Urine pH (5.0-8.0) Ur Specific [place] (1.001-1.035) Urine Protein (Negative) Urine Glucose (UA) (Negative) Urine Ketones (Negative) Urine Blood (Negative) Urine Nitrite (Negative) Urine Bilirubin (Negative) Urine Urobilinogen (<2.0) mg/dL Ur Leukocyte Esterase (Negative) Urine HCG, Qual (Not Detectd) Disposition Clinical Impression: Ovarian cyst, Abdominal pain, Teratoma Disposition: HOME SELF-CARE Condition: Good Instructions (If sedation given, give patient instructions): Ovarian Cyst (ED) Is patient prescribed a controlled substance at d/c from ED?: No Referrals: Rohan Leblanc MD [Primary Care Provider] - 1-2 days
[2020-08-13] MEDS ORDERED: diphenhydrAMINE 50 MG/ML 1 ML VIAL IVP STA (04:20)
[2020-08-13 04:29] LABS: Basophils # (A) 0.1 k/uL (0-0.2); Basophils % (A) 1 %; Eosinophils # (A) 0.2 k/uL (0-0.7); Eosinophils % (A) 2 %; HGB 14.1 gm/dL (11.4-16.0); Lymphocytes # (A) 3.8 k/uL (1.0-4.8); Lymphocytes % (A) 29 %; MCH 30.2 pg (25.0-35.0); MCHC 34.4 g/dL (31.0-37.0); MCV 87.7 fL (80.0-100.0); Mean Platelet Volume 8.3; Monocytes # (A) 0.6 k/uL (0-1.0); Monocytes % (A) 5 %; Neutrophils # (A) 8.2 k/uL (1.3-7.7); Neutrophils % (A) 62 %; Platelet Count 259 k/uL (150-450); RBC 4.67 m/uL (3.80-5.40); RDW 11.8 % (11.5-15.5); WBC 13.2 k/uL (4.0-11.0)
[2020-08-13 04:34] LABS: Appearance,Urine Clear (Clear); Bilirubin,Urine Negative (Negative); Blood,Urine Negative (Negative); Color,Urine Yellow; Glucose,Urine (UA) Negative (Negative); Ketones,Urine Trace (Negative); Leukocyte Esterase,Urine Negative (Negative); Nitrite,Urine Negative (Negative); PH, Urine 6.5 (5.0-8.0); Protein,Urine Negative (Negative); Specific Gravity,Urine 1.025 (1.001-1.035); Urobilinogen,Urine <2.0 mg/dL (<2.0)
[2020-08-13 04:39] LABS: ALT 21 U/L (4-34); AST 24 U/L (14-36); African American GFR (CKD) >90 (>60 ml/min/1.73 sqM); Albumin 4.2 g/dL (3.5-5.0); Alkaline Phosphatase 73 U/L (38-126); Amylase 49 U/L (30-110); Anion Gap 6 mmol/L; Blood Urea Nitrogen 14 mg/dL (7-17); Calcium 9.4 mg/dL (8.4-10.2); Carbon Dioxide 27 mmol/L (22-30); Chloride 105 mmol/L (98-107); Glucose 98 mg/dL (74-99); Lipase 102 U/L (23-300); Non-African American GFR(CKD) >90 (>60 ml/min/1.73 sqM); Potassium 3.9 mmol/L (3.5-5.1); Sodium 138 mmol/L (137-145); Total Bilirubin 0.4 mg/dL (0.2-1.3); Total Protein 7.2 g/dL (6.3-8.2)
--- NOTE | 2020-08-13 05:04 | CT ---
EXAM: CT Abdomen and Pelvis With Intravenous Contrast CLINICAL HISTORY: abdominal pain TECHNIQUE: Axial computed tomography images of the abdomen and pelvis with intravenous contrast. CTDI is 20.7 mGy and DLP is 931.4 mGy-cm. This CT exam was performed using one or more of the following dose reduction techniques: automated exposure control, adjustment of the mA and/or kV according to patient size, and/or use of iterative reconstruction technique. COMPARISON: 09/26/2016. FINDINGS: Lung bases: Unremarkable. No mass. No consolidation. ABDOMEN: Liver: Unremarkable. No mass. Gallbladder and bile ducts: Unremarkable. No calcified stones. No ductal dilation. Pancreas: Unremarkable. No mass. No ductal dilation. Spleen: Unremarkable. No splenomegaly. Adrenals: Unremarkable. No mass. Kidneys and ureters: Unremarkable. No solid mass. No hydronephrosis. Stomach and bowel: Fluid is seen throughout the bowel, nonspecific, although may represent infectious versus inflammatory enteritis in the correct clinical setting. No obstruction. PELVIS: Appendix: No findings to suggest acute appendicitis. Bladder: Unremarkable. No mass. Reproductive: A 5.3 cm left ovarian mature cystic ovarian teratoma is noted, not seen on the prior study. ABDOMEN and PELVIS: Intraperitoneal space: Small amount of pelvic free fluid, likely physiologic. No free air. Bones/joints: No acute fracture. No dislocation. Soft tissues: Unremarkable. Vasculature: Unremarkable. No abdominal aortic aneurysm. Lymph nodes: Cluster of mildly prominent right lower quadrant mesenteric lymph nodes are noted, measuring up to 1 cm in short axis, which may represent mesenteric adenitis. IMPRESSION: 1. A 5.3 cm left ovarian mature cystic ovarian teratoma is noted, not seen on the prior study. Pelvic ultrasound may be obtained for further evaluation. 2. Fluid is seen throughout the bowel, nonspecific, although may represent infectious versus inflammatory enteritis in the correct clinical setting. 3. Cluster of mildly prominent right lower quadrant mesenteric lymph nodes are noted, measuring up to 1 cm in short axis, which may represent mesenteric adenitis.
[2020-08-13] MEDS ORDERED: ACET/COD 300 MG/30 MG STARTER PACK 6 TAB BTL PO STA (05:38)
[2020-08-13 05:47] VITALS: BP 120/86; PULSE 69; TEMP 98.9
== END 2020-08-13 05:47 | disposition home or self-care (01) ==
LOC: EC 03:32
DX: R10.31 Right lower quadrant pain (principal); D27.1 Benign neoplasm of left ovary; Z88.5 Allergy status to narcotic agent; Z91.030 Bee allergy status
CPT/HCPCS: 99284; 96374; 96375; 96361 ×2; 36415; 80053; 82150; 83690; 85025; 81003; 81025; 74177; J2270; J1200; Q9967

== ENCOUNTER 2020-08-24 00:12 | Emergency (ER) | payer OTHER ==
[2020-08-24 00:28] VITALS: TEMP 98.8
--- NOTE | 2020-08-24 00:42 | ED ---
Abdominal Pain HPI - General Chief Complaint: Abdominal Pain Stated Complaint: Rt side pain Time Seen by Provider: 08/24/20 00:28 Source: patient Mode of arrival: wheelchair Limitations: no limitations - History of Present Illness Initial Comments: This patient is a 20-year-old woman who presents with concern that she may have ectopic . Patient states she had a history of left salpingectomy due to ectopic . She notes that she has been having sharp, right lower quadrant pains going back proximally 3 days. It started out mild but she states that today it is severe. She declines analgesic at time of history and physical. She has had some accompanying nausea. She has not noted a change in bowel movements, last bowel movement was 2 days ago and seemed normal. She states that her last period was approximately 6 weeks ago and it was normal at that time. She has not noted vaginal discharge. No change in urination. The patient states she has taken home tests that were negative. No systemic symptoms. MD Complaint: abdominal pain Onset/Timin -: days(s) Location: RLQ Radiation: none Severity: severe Quality: sharp Consistency: constant Improves With: nothing Worsens With: nothing Associated Symptoms: nausea - Related Data LMP (females 10-50): 1 month Patient : No Home Medications Medication Instructions Recorded Confirmed Acetaminophen-Codeine 300-30mg 1 - 2 tab PO Q6H PRN 05/13/20 05/13/20 [Tylenol w/codeine #3] Allergies Allergy/AdvReac Type Severity Reaction Status Date / Time morphine Allergy Rash/Hives Verified 08/24/20 00:22 venom-honey bee Allergy Unknown Verified 08/24/20 00:22 [bee venom (honey bee)] Review of Systems ROS Statement: Those systems with pertinent positive or pertinent negative responses have been documented in the HPI. ROS Other: All systems not noted in ROS Statement are negative. Constitutional: Denies: fever, chills Respiratory: Denies: cough, dyspnea Cardiovascular: Denies: chest pain, palpitations, edema, syncope Gastrointestinal: Reports: as per HPI, abdominal pain, nausea. Denies: v omiting, diarrhea, constipation, melena, hematochezia Genitourinary: Reports: as per HPI, abnormal menses. Denies: dysuria, frequency, hematuria Musculoskeletal: Denies: back pain Skin: Denies: rash Neurological: Denies: headache, weakness, numbness Past Medical History Past Medical History: No Reported History Additional Past Medical History / Comment(s): UTI,kidney stones. History of Any Multi-Drug Resistant Organisms: None Reported Additional Past Surgical History / Comment(s): pre-cancerous lesion removed from scalp 2009. Left tubal removal 04/2020, placental abruption december 2019 , left sided ectopic apr 2020 Past Anesthesia/Blood Transfusion Reactions: No Reported Reaction Past Psychological History: No Psychological Hx Reported Smoking Status: Never smoker Past Alcohol Use History: None Reported Past Drug Use History: None Reported General Exam Limitations: no limitations General appearance: alert, in no apparent distress, anxious Head exam: Present: atraumatic, normocephalic Eye exam: Present: normal appearance. Absent: scleral icterus, conjunctival injection ENT exam: Present: normal oropharynx Neck exam: Present: normal inspection Respiratory exam: Present: normal lung sounds bilaterally. Absent: respiratory distress, wheezes, rales, rhonchi, stridor Cardiovascular Exam: Present: regular rate, normal rhythm, normal heart sounds. Absent: systolic murmur, diastolic murmur, rubs, gallop GI/Abdominal exam: Present: soft. Absent: distended, tenderness, guarding, rebound, rigid, mass Extremities exam: Present: normal inspection, normal capillary refill. Absent: pedal edema, calf tenderness Back exam: Present: normal inspection. Absent: CVA tenderness (R), CVA tenderness (L) Neurological exam: Present: alert Skin exam: Present: warm, dry, intact, normal color. Absent: rash Course Vital Signs 08/24/20 08/24/20 00:23 03:04 Temperature 98.8 F Pulse Rate 98 78 Respiratory 18 19 Rate Blood Pressure 111/89 108/68 O2 Sat by Pulse 100 98 Oximetry Medical Decision Making - Lab Data Result diagrams: 08/24/20 00:33 08/24/20 00:33 Lab Results 08/24/20 08/24/20 08/24/20 Range/Units 00:33 00:33 00:40 WBC 14.3 H (4.0-11.0) k/uL RBC 4.87 (3.80-5.40) m/uL Hgb 14.6 (11.4-16.0) gm/dL Hct 42.3 (34.0-46.0) % MCV 86.7 (80.0-100.0) fL MCH 29.9 (25.0-35.0) pg MCHC 34.4 (31.0-37.0) g/dL RDW 12.3 (11.5-15.5) % Plt Count 291 (150-450) k/uL MPV 8.3 Neutrophils % 66 % Lymphocytes % 26 % Monocytes % 5 % Eosinophils % 1 % Basophils % 1 % Neutrophils # 9.4 H (1.3-7.7) k/uL Lymphocytes # 3.7 (1.0-4.8) k/uL Monocytes # 0.7 (0-1.0) k/uL Eosinophils # 0.2 (0-0.7) k/uL Basophils # 0.1 (0-0.2) k/uL Sodium 135 L (137-145) mmol/L Potassium 3.8 (3.5-5.1) mmol/L Chloride 103 (98-107) mmol/L Carbon Dioxide 25 (22-30) mmol/L Anion Gap 7 mmol/L BUN 19 H (7-17) mg/dL Creatinine 0.66 (0.52-1.04) mg/dL Est GFR (CKD-EPI)AfAm >90 (>60 ml/min/1.73 sqM) Est GFR (CKD-EPI)NonAf >90 (>60 ml/min/1.73 sqM) Glucose 89 (74-99) mg/dL Calcium 9.5 (8.4-10.2) mg/dL Total Bilirubin 0.4 (0.2-1.3) mg/dL AST 24 (14-36) U/L ALT 22 (4-34) U/L Alkaline Phosphatase 71 (38-126) U/L Total Protein 7.4 (6.3-8.2) g/dL Albumin 4.2 (3.5-5.0) g/dL Amylase 61 (30-110) U/L Lipase 98 (23-300) U/L Urine Color Yellow Urine Appearance Clear (Clear) Urine pH 5.5 (5.0-8.0) Ur Specific [place] 1.021 (1.001-1.035) Urine Protein Negative (Negative) Urine Glucose (UA) Negative (Negative) Urine Ketones Negative (Negative) Urine Blood Negative (Negative) Urine Nitrite Negative (Negative) Urine Bilirubin Negative (Negative) Urine Urobilinogen <2.0 (<2.0) mg/dL Ur Leukocyte Esterase Small H (Negative) Urine RBC 1 (0-5) /hpf Urine WBC 1 (0-5) /hpf Ur Squamous Epith Cells 2 (0-4) /hpf Urine Bacteria Rare H (None) /hpf Urine Mucus Rare H (None) /hpf Urine HCG, Qual (Not Detectd) 08/24/20 Range/Units 00:40 WBC (4.0-11.0) k/uL RBC (3.80-5.40) m/uL Hgb (11.4-16.0) gm/dL Hct (34.0-46.0) % MCV (80.0-100.0) fL MCH (25.0-35.0) pg MCHC (31.0-37.0) g/dL RDW (11.5-15.5) % Plt Count (150-450) k/uL MPV Neutrophils % % Lymphocytes % % Monocytes % % Eosinophils % % Basophils % % Neutrophils # (1.3-7.7) k/uL Lymphocytes # (1.0-4.8) k/uL Monocytes # (0-1.0) k/uL Eosinophils # (0-0.7) k/uL Basophils # (0-0.2) k/uL Sodium (137-145) mmol/L Potassium (3.5-5.1) mmol/L Chloride (98-107) mmol/L Carbon Dioxide (22-30) mmol/L Anion Gap mmol/L BUN (7-17) mg/dL Creatinine (0.52-1.04) mg/dL Est GFR (CKD-EPI)AfAm (>60 ml/min/1.73 sqM) Est GFR (CKD-EPI)NonAf (>60 ml/min/1.73 sqM) Glucose (74-99) mg/dL Calcium (8.4-10.2) mg/dL Total Bilirubin (0.2-1.3) mg/dL AST (14-36) U/L ALT (4-34) U/L Alkaline Phosphatase (38-126) U/L Total Protein (6.3-8.2) g/dL Albumin (3.5-5.0) g/dL Amylase (30-110) U/L Lipase (23-300) U/L Urine Color Urine Appearance (Clear) Urine pH (5.0-8.0) Ur Specific [place] (1.001-1.035) Urine Protein (Negative) Urine Glucose (UA) (Negative) Urine Ketones (Negative) Urine Blood (Negative) Urine Nitrite (Negative) Urine Bilirubin (Negative) Urine Urobilinogen (<2.0) mg/dL Ur Leukocyte Esterase (Negative) Urine RBC (0-5) /hpf Urine WBC (0-5) /hpf Ur Squamous Epith Cells (0-4) /hpf Urine Bacteria (None) /hpf Urine Mucus (None) /hpf Urine HCG, Qual Not Detected (Not Detectd) Disposition Clinical Impression: Ovarian cyst, Teratoma, Abdominal pain, Appendicolith Disposition: HOME SELF-CARE Condition: Good Instructions (If sedation given, give patient instructions): Abdominal Pain (ED) Additional Instructions: As we discussed, follow-up with Dr. Richardson. Should any of the additional symptoms that we discussed develop or if you're feeling worse in any way return to the emergency department Is patient prescribed a controlled substance at d/c from ED?: No Referrals: Rohan Leblanc MD [Primary Care Provider] - 1-2 days Ace Richardson MD [STAFF PHYSICIAN] - 1-2 days
[2020-08-24 00:43] LABS: Basophils # (A) 0.1 k/uL (0-0.2); Basophils % (A) 1 %; Eosinophils # (A) 0.2 k/uL (0-0.7); Eosinophils % (A) 1 %; HCT 42.3 % (34.0-46.0); HGB 14.6 gm/dL (11.4-16.0); Lymphocytes # (A) 3.7 k/uL (1.0-4.8); Lymphocytes % (A) 26 %; MCH 29.9 pg (25.0-35.0); MCHC 34.4 g/dL (31.0-37.0); MCV 86.7 fL (80.0-100.0); Mean Platelet Volume 8.3; Monocytes # (A) 0.7 k/uL (0-1.0); Monocytes % (A) 5 %; Neutrophils # (A) 9.4 k/uL (1.3-7.7); Neutrophils % (A) 66 %; Platelet Count 291 k/uL (150-450); RBC 4.87 m/uL (3.80-5.40); RDW 12.3 % (11.5-15.5); WBC 14.3 k/uL (4.0-11.0)
[2020-08-24 00:55] LABS: ALT 22 U/L (4-34); AST 24 U/L (14-36); African American GFR (CKD) >90 (>60 ml/min/1.73 sqM); Albumin 4.2 g/dL (3.5-5.0); Alkaline Phosphatase 71 U/L (38-126); Amylase 61 U/L (30-110); Anion Gap 7 mmol/L; Blood Urea Nitrogen 19 mg/dL (7-17); Calcium 9.5 mg/dL (8.4-10.2); Carbon Dioxide 25 mmol/L (22-30); Chloride 103 mmol/L (98-107); Glucose 89 mg/dL (74-99); Lipase 98 U/L (23-300); Non-African American GFR(CKD) >90 (>60 ml/min/1.73 sqM); Potassium 3.8 mmol/L (3.5-5.1); Sodium 135 mmol/L (137-145); Total Bilirubin 0.4 mg/dL (0.2-1.3); Total Protein 7.4 g/dL (6.3-8.2)
[2020-08-24 01:01] LABS: Appearance,Urine Clear (Clear); Bacteria,Urine Rare /hpf; Bilirubin,Urine Negative (Negative); Blood,Urine Negative (Negative); Color,Urine Yellow; Glucose,Urine (UA) Negative (Negative); Ketones,Urine Negative (Negative); Leukocyte Esterase,Urine Small (Negative); Mucus,Urine Rare /hpf; Nitrite,Urine Negative (Negative); PH, Urine 5.5 (5.0-8.0); Protein,Urine Negative (Negative); RBC,Urine 1 /hpf (0-5); Specific Gravity,Urine 1.021 (1.001-1.035); Squamous Epithelial Cell,Urine 2 /hpf (0-4); Urobilinogen,Urine <2.0 mg/dL (<2.0); WBC,Urine 1 /hpf (0-5)
--- NOTE | 2020-08-24 03:03 | US ---
EXAM: US Pelvis Transabdominal and Transvaginal, Complete and US Duplex Arterial/Venous of the Pelvis, Complete CLINICAL HISTORY: ITS.REASON US Reason: R/O ovarian torsion, right TECHNIQUE: Real-time complete transabdominal and transvaginal pelvic ultrasound with image documentation. Transvaginal imaging was used for better evaluation of the endometrium and adnexa. Real-time duplex ultrasound scan of the arterial and venous flow of the pelvis with color Doppler flow and spectral waveform analysis. COMPARISON: 08/13/2020. FINDINGS: Uterus/cervix: The uterus measures 7.9 x 6.1 x 4.2 cm. Endometrial stripe measures 0.94 cm per No myometrial mass. Right ovary: Right ovary measures 4.1 x 2.9 x 2.3 cm per Flow to the right ovary is noted. No torsion. Left ovary: The left ovary is not definitely visualized. Anterior midline to the uterus there is a 4.6 x 5 x 5.2 cm complex solid cystic lesion with vascularity most likely representing are presumed mature left ovarian cystic teratoma described on the CT study of 08/13/2020. Free fluid: Small to moderate simple free fluid is noted with the posterior cul-de-sac. Bladder: Unremarkable as visualized. Wall is normal thickness for degree of distention. IMPRESSION: 1. There is a complex mass lesion anterior to the uterus most likely corresponding to the previously described left ovarian cystic teratoma the CT study of 08/13/2020. This lesion is vascular. 2. The left ovary was not discretely visualized. 3. Flow to the right ovary was established. 4. Small simple free fluid within the posterior cul-de-sac. 5. Since the left ovary was not discretely visualized, left ovarian torsion cannot be excluded based on the current study and clinical correlation is advised. 6. With respect to the presumed left ovarian cystic teratoma, magnetic resonance imaging with gadolinium administration is advised on a nonemergent basis to confirm this finding.
[2020-08-24 03:04] VITALS: BP 108/68; PULSE 78; RESP 19
--- NOTE | 2020-08-24 03:42 | CT ---
EXAM: CT Abdomen and Pelvis Without Intravenous Contrast CLINICAL HISTORY: Right lower quadrant abdominal pain. TECHNIQUE: Axial computed tomography images of the abdomen and pelvis without intravenous contrast. CTDI is 9.67 mGy and DLP is 520.7 mGy-cm. This CT exam was performed using one or more of the following dose reduction techniques: automated exposure control, adjustment of the mA and/or kV according to patient size, and/or use of iterative reconstruction technique. COMPARISON: 08/13/2020. FINDINGS: Lung bases: Unremarkable. No mass. No consolidation. Pleural space: No pleural effusions. Heart: Heart is normal in size. ABDOMEN: Liver: The liver and the spleen are normal in contour. Gallbladder and bile ducts: The gallbladder is unremarkable. No calcified stones. No ductal dilation. Pancreas: See below. Spleen: See above. Adrenals: The adrenal glands, the head, body, tail of the pancreas are within normal limits. Kidneys and ureters: No renal calculus or hydronephrosis. Stomach and bowel: Minimal ingested material in the stomach appeared Moderate quantity of stool throughout the colon. No bowel obstruction. No mucosal thickening. PELVIS: Appendix: The appendix is seen on coronal image 35 and is unremarkable. 0.3 cm appendicolith at the tip of the appendix. Bladder: Bladder is underdistended. No stones. Reproductive: The uterus is unremarkable. A 5.3 cm left ovarian teratoma is suggested containing calcium and fat similar to that noted on the previous study. Appearance of the right ovary is unchanged from the previous study. ABDOMEN and PELVIS: Intraperitoneal space: Minimal simple free fluid within the posterior cul-de-sac. No free air. Bones/joints: Mild osteoarthritic changes about the sacroiliac joints. No spondylolysis or spinal listhesis appeared Sacrum and coccyx are unremarkable. Minimal anterior wedging of the T10 and T11 vertebral bodies of uncertain significance. No dislocation. Soft tissues: Ischiorectal fat is clean. Vasculature: Unremarkable. No abdominal aortic aneurysm. Lymph nodes: A few prominent lymph nodes are noted the right lower quadrant of uncertain significance. No pelvic or inguinal lymphadenopathy. Other findings: Elevation right hemidiaphragm. IMPRESSION: 1. Findings compatible with a 5.3 cm left ovarian teratoma similar to that noted on study of 08/13/2020. 2. Free fluid within the posterior cul-de-sac. 3. Appearance of the right ovary is unchanged 4. Appendicolith within the appendix which is otherwise unremarkable. 5. No bowel obstruction. 6. No hydronephrosis. 7. Gallbladder is unremarkable. 8. A few prominent right lower quadrant mesenteric lymph nodes of uncertain significance similar to that noted on the previous study.
[2020-08-24] MEDS ORDERED: MAGNESIUM CITRATE 296 ML BOTTLE PO ONE (04:02)
[2020-08-25 10:58] LABS: Chlamydia trachomatis rRNA Not detected (Not detected); Neisseria gonorrhoeae rRNA Not detected (Not detected)
== END 2020-08-24 04:15 | disposition home or self-care (01) ==
LOC: EC 00:12
DX: D27.1 Benign neoplasm of left ovary (principal); K38.1 Appendicular concretions; Z88.5 Allergy status to narcotic agent; Z91.030 Bee allergy status
CPT/HCPCS: 36415; 74176; 76830; 80053; 81001; 81025; 82150; 83690; 85025; 87491; 93975; 99284

== ENCOUNTER → 2021-01-07 | Outpatient (CLI) | payer OTHER | END | disposition home or self-care (01) | LOC: LABWHC1 16:30 | PROVIDERS: ATTEND Obstetrics & Gynecology | DX: O20.0 Threatened abortion (principal); Z3A.00 Weeks of gestation of pregnancy not specified | CPT/HCPCS: 36415; 84702 ==

== ENCOUNTER 2021-03-17 08:55 | Emergency (ER) | payer OTHER ==
[2021-03-17 09:00] VITALS: TEMP 97.8
--- NOTE | 2021-03-17 09:13 | ED ---
General Adult HPI - General Chief complaint: Vaginal Bleeding Stated complaint: possible miscarriage Time Seen by Provider: 03/17/21 09:00 Source: patient, RN notes reviewed Mode of arrival: ambulatory Limitations: no limitations - History of Present Illness Initial comments: This is a 21-year-old female presents emergency Department with chief complaint of vaginal bleeding early . Patient states she is A2 and which she is approximately 13 weeks was scheduled see her FUNERAL ARRANGER today. Patient states she started having bleeding around 8 AM. Patient states the bleeding is heavier than her normal mental cycle. Patient did have an ectopic last year and which she had surgery by Dr. Daugherty. Patient is A- blood type. Patient has had no prior care for this . Patient denies any fevers or chills no nausea vomiting no other complaints. - Related Data Home Medications Medication Instructions Recorded Confirmed Acetaminophen-Codeine 300-30mg 1 - 2 tab PO Q6H PRN 05/13/20 05/13/20 [Tylenol w/codeine #3] Allergies Allergy/AdvReac Type Severity Reaction Status Date / Time morphine Allergy Rash/Hives Verified 03/17/21 08:57 venom-honey bee Allergy Unknown Verified 03/17/21 08:57 [bee venom (honey bee)] Review of Systems ROS Statement: Those systems with pertinent positive or pertinent negative responses have been documented in the HPI. ROS Other: All systems not noted in ROS Statement are negative. Past Medical History Past Medical History: No Reported History Additional Past Medical History / Comment(s): UTI,kidney stones. History of Any Multi-Drug Resistant Organisms: None Reported Additional Past Surgical History / Comment(s): pre-cancerous lesion removed from scalp 2009. Left tubal removal 04/2020, placental abruption december 2019 , left sided ectopic apr 2020 Past Anesthesia/Blood Transfusion Reactions: No Reported Reaction Past Psychological History: No Psychological Hx Reported Smoking Status: Never smoker Past Alcohol Use History: None Reported Past Drug Use History: None Reported General Exam Limitations: no limitations General appearance: alert, in no apparent distress Head exam: Present: atraumatic, normocephalic, normal inspection Eye exam: Present: normal appearance, PERRL, EOMI. Absent: scleral icterus, conjunctival injection, periorbital swelling Respiratory exam: Present: normal lung sounds bilaterally. Absent: respiratory distress, wheezes, rales, rhonchi, stridor Cardiovascular Exam: Present: regular rate, normal rhythm, normal heart sounds. Absent: systolic murmur, diastolic murmur, rubs, gallop, clicks GI/Abdominal exam: Present: soft, tenderness, normal bowel sounds. Absent: distended, guarding, rebound, rigid Neurological exam: Present: alert Skin exam: Present: warm, dry, intact, normal color. Absent: rash Course Vital Signs 03/17/21 03/17/21 08:58 10:49 Temperature 97.8 F Pulse Rate 86 70 Respiratory 18 20 Rate Blood Pressure 122/87 120/74 O2 Sat by Pulse 100 99 Oximetry Medical Decision Making - Medical Decision Making Ultrasound does not reveal IUP, left adnexal cyst approximate 6 cm I did discuss case with patient's FUNERAL ARRANGER recommends patient follow-up in office. Patient may need surgery for her cysts in which she had in the past. Patient is currently not we discuss with her FUNERAL ARRANGER about RhoGAM and he states that she does not require RhoGAM as she is not currently . - Lab Data Result diagrams: 03/17/21 09:28 03/17/21 09:28 Lab Results 03/17/21 03/17/21 03/17/21 Range/Units 09:28 09:28 09:28 WBC 8.8 (3.8-10.6) k/uL RBC 4.78 (3.80-5.40) m/uL Hgb 14.5 (11.4-16.0) gm/dL Hct 42.7 (34.0-46.0) % MCV 89.3 (80.0-100.0) fL MCH 30.2 (25.0-35.0) pg MCHC 33.8 (31.0-37.0) g/dL RDW 12.0 (11.5-15.5) % Plt Count 247 (150-450) k/uL MPV 8.6 Neutrophils % 59 % Lymphocytes % 30 % Monocytes % 4 % Eosinophils % 4 % Basophils % 1 % Neutrophils # 5.2 (1.3-7.7) k/uL Lymphocytes # 2.6 (1.0-4.8) k/uL Monocytes # 0.4 (0-1.0) k/uL Eosinophils # 0.4 (0-0.7) k/uL Basophils # 0.1 (0-0.2) k/uL Sodium 141 (137-145) mmol/L Potassium 4.6 (3.5-5.1) mmol/L Chloride 109 H (98-107) mmol/L Carbon Dioxide 22 (22-30) mmol/L Anion Gap 10 mmol/L BUN 11 (7-17) mg/dL Creatinine 0.58 (0.52-1.04) mg/dL Est GFR (CKD-EPI)AfAm >90 (>60 ml/min/1.73 sqM) Est GFR (CKD-EPI)NonAf >90 (>60 ml/min/1.73 sqM) Glucose 112 H (74-99) mg/dL Calcium 9.2 (8.4-10.2) mg/dL HCG, Quant 3.7 mIU/mL Urine Color Yellow Urine Appearance Clear (Clear) Urine pH 5.5 (5.0-8.0) Ur Specific [place] 1.023 (1.001-1.035) Urine Protein Negative (Negative) Urine Glucose (UA) Negative (Negative) Urine Ketones Negative (Negative) Urine Blood Moderate H (Negative) Urine Nitrite Negative (Negative) Urine Bilirubin Negative (Negative) Urine Urobilinogen <2.0 (<2.0) mg/dL Ur Leukocyte Esterase Trace H (Negative) Urine RBC 2 (0-5) /hpf Urine WBC 2 (0-5) /hpf Ur Squamous Epith Cells 2 (0-4) /hpf Urine Mucus Occasional H (None) /hpf Blood Type Blood Type Recheck Bld Type Recheck Status Antibody Screen 03/17/21 Range/Units 09:28 WBC (3.8-10.6) k/uL RBC (3.80-5.40) m/uL Hgb (11.4-16.0) gm/dL Hct (34.0-46.0) % MCV (80.0-100.0) fL MCH (25.0-35.0) pg MCHC (31.0-37.0) g/dL RDW (11.5-15.5) % Plt Count (150-450) k/uL MPV Neutrophils % % Lymphocytes % % Monocytes % % Eosinophils % % Basophils % % Neutrophils # (1.3-7.7) k/uL Lymphocytes # (1.0-4.8) k/uL Monocytes # (0-1.0) k/uL Eosinophils # (0-0.7) k/uL Basophils # (0-0.2) k/uL Sodium (137-145) mmol/L Potassium (3.5-5.1) mmol/L Chloride (98-107) mmol/L Carbon Dioxide (22-30) mmol/L Anion Gap mmol/L BUN (7-17) mg/dL Creatinine (0.52-1.04) mg/dL Est GFR (CKD-EPI)AfAm (>60 ml/min/1.73 sqM) Est GFR (CKD-EPI)NonAf (>60 ml/min/1.73 sqM) Glucose (74-99) mg/dL Calcium (8.4-10.2) mg/dL HCG, Quant mIU/mL Urine Color Urine Appearance (Clear) Urine pH (5.0-8.0) Ur Specific [place] (1.001-1.035) Urine Protein (Negative) Urine Glucose (UA) (Negative) Urine Ketones (Negative) Urine Blood (Negative) Urine Nitrite (Negative) Urine Bilirubin (Negative) Urine Urobilinogen (<2.0) mg/dL Ur Leukocyte Esterase (Negative) Urine RBC (0-5) /hpf Urine WBC (0-5) /hpf Ur Squamous Epith Cells (0-4) /hpf Urine Mucus (None) /hpf Blood Type A Negative Blood Type Recheck A Neg Bld Type Recheck Status No Antibody Screen NEGATIVE Disposition Clinical Impression: Vaginal bleeding, Ovarian cyst Disposition: HOME SELF-CARE Condition: Stable Instructions (If sedation given, give patient instructions): Ovarian Cyst (ED) Additional Instructions: Please return to the Emergency Department if symptoms worsen or any other concerns. Is patient prescribed a controlled substance at d/c from ED?: No Referrals: Rohan Leblanc MD [Primary Care Provider] - 1-2 days Ace Richardson MD [STAFF PHYSICIAN] - 1-2 days Time of Disposition: 11:45
[2021-03-17 09:41] LABS: Basophils # (A) 0.1 k/uL (0-0.2); Basophils % (A) 1 %; Eosinophils # (A) 0.4 k/uL (0-0.7); Eosinophils % (A) 4 %; HCT 42.7 % (34.0-46.0); HGB 14.5 gm/dL (11.4-16.0); Lymphocytes # (A) 2.6 k/uL (1.0-4.8); Lymphocytes % (A) 30 %; MCH 30.2 pg (25.0-35.0); MCHC 33.8 g/dL (31.0-37.0); MCV 89.3 fL (80.0-100.0); Mean Platelet Volume 8.6; Monocytes # (A) 0.4 k/uL (0-1.0); Monocytes % (A) 4 %; Neutrophils # (A) 5.2 k/uL (1.3-7.7); Neutrophils % (A) 59 %; Platelet Count 247 k/uL (150-450); RBC 4.78 m/uL (3.80-5.40); WBC 8.8 k/uL (3.8-10.6)
[2021-03-17 09:45] LABS: Appearance,Urine Clear (Clear); Bilirubin,Urine Negative (Negative); Blood,Urine Moderate (Negative); Color,Urine Yellow; Glucose,Urine (UA) Negative (Negative); Ketones,Urine Negative (Negative); Leukocyte Esterase,Urine Trace (Negative); Mucus,Urine Occasional /hpf; Nitrite,Urine Negative (Negative); PH, Urine 5.5 (5.0-8.0); Protein,Urine Negative (Negative); RBC,Urine 2 /hpf (0-5); Specific Gravity,Urine 1.023 (1.001-1.035); Squamous Epithelial Cell,Urine 2 /hpf (0-4); Urobilinogen,Urine <2.0 mg/dL (<2.0); WBC,Urine 2 /hpf (0-5)
[2021-03-17 10:32] LABS: African American GFR (CKD) >90 (>60 ml/min/1.73 sqM); Anion Gap 10 mmol/L; Blood Urea Nitrogen 11 mg/dL (7-17); Calcium 9.2 mg/dL (8.4-10.2); Carbon Dioxide 22 mmol/L (22-30); Chloride 109 mmol/L (98-107); Glucose 112 mg/dL (74-99); Non-African American GFR(CKD) >90 (>60 ml/min/1.73 sqM); Sodium 141 mmol/L (137-145)
--- NOTE | 2021-03-17 10:32 | US ---
EXAMINATION TYPE: Transabdominal DATE OF EXAM: 03/17/2021 10:05 AM COMPARISON: Transvaginal ultrasound 08/24/2020, CT 08/24/2020 CLINICAL HISTORY: pain . Bleeding. Patient states she should be around 13 weeks but her LMP is unknow n. Bleeding and cramping starting today EXAM PERFORMED: Transvaginal (TV) and Transabdominal (TA), endovaginal scanning performed for better evaluation of the uterus and left adnexal region, right ovary EXAM MEASUREMENTS: GESTATIONAL AGE / DATING Physician Established: Not yet established Dates by LMP: LMP unknown Dates by First Scan: No previous this is first scan Dates by Current Scan for: No IUP visualized MATERNAL ANATOMY Uterus: 7.2 x 4.8 x 4.4 cm Right Ovary: 3.5 x 2.1 x 1.9 cm Left Ovary: Not visualized with certainty- see below Post CDS / Adnexa: Within the left adnexa, there is a complex area visualized measuring 6.5 x 4.3 x 6 .4 cm. This previously measured 4.6 x 5 x 5.2 cm on 08/24/2020 Presence of free fluid: Small amount of free fluid visualized in the posterior cul de sac Presence of corpus luteal cyst: No Presence of subchorionic bleed: No GESTATION / SURVEY IUP: No IUP seen at this time Date of LMP: Unsure Beta HcG (if available): Not available at this time No IUP visualized at this time. Endometrium measures 1.3 cm. Within the left adnexa, there is a compl ex area visualized measuring 6.5 x 4.3 x 6.4 cm. This previously measured 4.6 x 5 x 5.2 cm on 020 IMPRESSION: Findings consistent with left adnexal teratoma. No intrauterine identified.
[2021-03-17 10:41] LABS: Potassium 4.6 mmol/L (3.5-5.1)
[2021-03-17 10:48] LABS: HCG,Quantitative Serum 3.7 mIU/mL
[2021-03-17 10:51] VITALS: BP 120/74; PULSE 70; RESP 20
== END 2021-03-17 11:55 | disposition home or self-care (01) ==
LOC: EC 08:55
DX: O20.9 Hemorrhage in early pregnancy, unspecified (principal); N83.209 Unspecified ovarian cyst, unspecified side; Z3A.13 13 weeks gestation of pregnancy; Z87.442 Personal history of urinary calculi
CPT/HCPCS: 36415; 76801; 76817; 80048; 81001; 84702; 85025; 86850; 86900; 86901; 99284

== ENCOUNTER → 2021-05-17 | Outpatient (CLI) | payer OTHER | END | disposition home or self-care (01) | LOC: LABPAT 13:33 | PROVIDERS: ATTEND Obstetrics & Gynecology | DX: Z01.812 Encounter for preprocedural laboratory examination (principal) | CPT/HCPCS: 87086 ==

== ENCOUNTER → 2021-05-24 | Outpatient (CLI) | payer OTHER | END | disposition home or self-care (01) | LOC: LABPAT 10:40 | PROVIDERS: ATTEND Obstetrics & Gynecology | DX: Z53.9 Procedure and treatment not carried out, unspecified reason (principal) ==

== ENCOUNTER 2021-05-25 07:08 | Observation (INO) | payer OTHER ==
[2021-05-24 11:24] LABS: Basophils # (A) 0.1 k/uL (0-0.2); Basophils % (A) 1 %; Eosinophils # (A) 0.3 k/uL (0-0.7); Eosinophils % (A) 4 %; HCT 40.1 % (34.0-46.0); HGB 13.5 gm/dL (11.4-16.0); Lymphocytes # (A) 2.6 k/uL (1.0-4.8); Lymphocytes % (A) 35 %; MCH 30.8 pg (25.0-35.0); MCHC 33.7 g/dL (31.0-37.0); MCV 91.3 fL (80.0-100.0); Mean Platelet Volume 8.8; Monocytes # (A) 0.4 k/uL (0-1.0); Monocytes % (A) 5 %; Neutrophils # (A) 3.9 k/uL (1.3-7.7); Neutrophils % (A) 53 %; Platelet Count 241 k/uL (150-450); RDW 11.9 % (11.5-15.5); WBC 7.4 k/uL (3.8-10.6)
[2021-05-24 11:36] LABS: African American GFR (CKD) >90 (>60 ml/min/1.73 sqM); Anion Gap 6 mmol/L; Blood Urea Nitrogen 14 mg/dL (7-17); Carbon Dioxide 26 mmol/L (22-30); Chloride 107 mmol/L (98-107); Glucose 92 mg/dL (74-99); Non-African American GFR(CKD) >90 (>60 ml/min/1.73 sqM); Potassium 4.2 mmol/L (3.5-5.1); Sodium 139 mmol/L (137-145)
[~2021-05-25 07:08] MED LIST: DEXAMETHASONE SOD PHOSPHATE 4 MG/ML 1 ML VIAL IV ONE; ONDANSETRON 4 MG/2 ML VIAL IVP ONE; Pre Op ABX Message 1 EACH MISC MISCELLANE ONE
[2021-05-25] MEDS ORDERED: SCOPOLAMINE 1.5MG/72HR PATCH TRANSDERM ONE (08:00)
[2021-05-25] MEDS: LACTATED RINGERS 1,000 ML IV SCH ×3 (08:13→23:48)
[2021-05-25] MEDS ORDERED: diphenhydrAMINE 50 MG/ML 1 ML VIAL ONE (08:19)
[2021-05-25] MEDS ORDERED: diphenhydrAMINE 50 MG/ML 1 ML VIAL IVP ONE (08:24)
[2021-05-25] MEDS ORDERED: fentaNYL (PF) 50 MCG/ML 2 ML AMP ONE (08:58)
[2021-05-25] MEDS ORDERED: NEOSTIGMINE 1 MG/ML 10 ML VIAL ONE (08:58)
[2021-05-25] MEDS ORDERED: LIDOCAINE 1% INJ 10MG/ML (20 ML MDV) ONE (08:58)
[2021-05-25] MEDS ORDERED: GLYCOPYRROLATE 0.2 MG/ML 2 ML VIAL ONE (08:58)
[2021-05-25] MEDS ORDERED: MIDAZOLAM 2 MG/2 ML VIAL ONE (08:58)
[2021-05-25] MEDS ORDERED: PHENYLEPHRINE-0.9% NACL SYG 1,000 MCG/10 ML SYRINGE ONE (08:58)
[2021-05-25] MEDS ORDERED: PROPOFOL 10 MG/ML 20 ML VIAL IV ONE (08:58)
[2021-05-25] MEDS ORDERED: SUCCINYLCHOLINE CHLORIDE 100 MG/5 ML SYR IV ONE (08:58)
[2021-05-25] MEDS ORDERED: HYDROmorphone 0.5 MG/0.5 ML SYRINGE IVP ONE (10:15)
[2021-05-25] MEDS ORDERED: diphenhydrAMINE 50 MG/ML 1 ML VIAL IVP PRN (10:24)
[2021-05-25] MEDS ORDERED: IBUPROFEN 600 MG TAB PO PRN (10:24)
[2021-05-25] MEDS ORDERED: SIMETHICONE 80 MG CHEWABLE PO PRN (10:24)
[2021-05-25] MEDS ORDERED: Acetaminophen-Codeine 300-30mg TAB PO PRN ×2 (10:24)
[2021-05-25] MEDS ORDERED: ONDANSETRON 4 MG/2 ML VIAL IVP PRN (10:24)
[2021-05-25] MEDS ORDERED: METOCLOPRAMIDE 5 MG/ML 2 ML VIAL IVP PRN (10:24)
[2021-05-25] MEDS ORDERED: HYDROmorphone PCA 10 MG/50 ML BAG IV PRN (10:27)
[2021-05-25] MEDS ORDERED: NALOXONE 0.4 MG/ML 1 ML VIAL IV PRN (10:27)
[2021-05-25] MEDS: HYDROmorphone 0.5 MG/0.5 ML SYRINGE IVP PRN ×3 (10:30→10:55)
--- NOTE | 2021-05-25 10:34 | P.OP ---
Date of Procedure: 05/25/21 Preoperative Diagnosis: #1. 5 cm complex left ovarian cyst Postoperative Diagnosis: Same Procedure(s) Performed: #1. Mini laparotomy #2. Left oophorectomy Anesthesia: EMILYA Surgeon: Ace Richardson Tab Machine Operator #1: Vesta Ye Estimated Blood Loss (ml): 10 IV fluids (ml): 400 Urine output (ml): 200 Pathology: other (Left ovary) Condition: stable Disposition: PACU Operative Findings: Intraoperatively, the left ovary was entirely occupied by the complex cystic structure with no apparent normal ovarian cortex noted. It was mobile and easily elevated up and through the incision. The uterus, right tube and right ovary were entirely normal to inspection and palpation. There is no evidence of any pathology throughout the pelvis. Pelvic washings were not sent as the cyst appeared entirely benign. Description of Procedure: The patient was prepped and draped in usual fashion after general endotracheal anesthesia was a missed her by the anesthesiologist. A Pfannenstiel incision was made, approximately 8 cm in width. It was extended in T abdominal cavity without difficulty. The pelvis was explored manually and the left ovary noted to be enlarged consistent with the previous sonographic findings. It was entirely mobile and was able to be elevated through the incision. Examination of the ovarian complex demonstrated no evidence of any normal ovarian cortex to be saved or repaired. As a result, a Dede clamp was placed across the infundibulopelvic ligament and the specimen divided from the patient. The pedicle was then tied with a transfixion stitch of 0 Vicryl followed by a free tie of 0 Vicryl. Hemostasis was excellent. The pelvis was then further explored both manually and visually with no evidence of any abnormalities. The uterus, right tube and ovary were visualized and normal. The parietal peritoneum was then loosely reapproximated in the layer of muscles made hemostatic with the Bovie. The fascia was closed with 2 running stitches of 0 Vicryl proceeding from the lateral margins to the midpoint. The subcutaneous tissues were irrigated, made hemostatic with the Bovie, and reapproximated with a running stitch of 2-0 Vicryl. The skin was reapproximated with a running subcuticular stitch of 4-0 Vicryl followed by half-inch Steri-Strips placed with Mastisol. Estimated blood loss for the case was approximately 10 mL. There were no complications. All sponge, instrument, needle counts were correct. The patient tolerated the procedure well and proceeded to the recovery room in stable condition.
[2021-05-25] MEDS ORDERED: LACTATED RINGERS 1,000 ML IV ONE (11:07)
[2021-05-25] MEDS: KETOROLAC 15 MG/ML 1 ML VIAL IVP PRN (19:59)
[2021-05-26] MEDS: KETOROLAC 15 MG/ML 1 ML VIAL IVP PRN ×2 (02:03→09:22)
[2021-05-26] MEDS: SENNOSIDES-DOCUSATE SODIUM 1 EACH TAB PO SCH ×2 (02:03→11:09)
[2021-05-26 05:50] LABS: Basophils % (A) 0 %; Eosinophils # (A) 0.1 k/uL (0-0.7); Eosinophils % (A) 1 %; HCT 34.3 % (34.0-46.0); HGB 11.6 gm/dL (11.4-16.0); Lymphocytes # (A) 2.4 k/uL (1.0-4.8); Lymphocytes % (A) 24 %; MCH 31.1 pg (25.0-35.0); MCV 91.5 fL (80.0-100.0); Mean Platelet Volume 8.9; Monocytes # (A) 0.7 k/uL (0-1.0); Monocytes % (A) 7 %; Neutrophils # (A) 6.5 k/uL (1.3-7.7); Neutrophils % (A) 66 %; Platelet Count 230 k/uL (150-450); RBC 3.74 m/uL (3.80-5.40); RDW 11.9 % (11.5-15.5); WBC 9.7 k/uL (3.8-10.6)
[2021-05-26] MEDS ORDERED: HYDROcodone/APAP 5-325MG 1 EACH TAB PO PRN ×2 (08:25)
--- NOTE | 2021-05-26 08:31 | P.DS ---
Providers Date of admission: 05/25/21 16:48 Expected date of discharge: 05/26/21 Attending physician: Ace Richardson Primary care physician: Stated None - Discharge Diagnosis(es) (1) Ovarian cyst Current Visit: Yes Status: Acute Hospital Course: The patient is a 21-year-old 4 para 0030 admitted with a known 5+ centimeter complex left ovarian cyst. It is consistent in appearance with a dermoid. She has continued to have difficulty achieving and has requested that it be removed. We had a long discussion regarding options for removal and she agreed to undergo minilaparotomy with either removal or repair cystectomy and ovarian repair. She was taken to the operating room where she was found to have the entire ovary occupied by the cystic structure with no apparent normal ovarian cortex remaining. As a result, she underwent left nephrectomy having previously undergone salpingectomy for ectopic on that side. Her postoperative course was unremarkable vital signs ringing stable and her temperature is afebrile throughout. He was tolerating a regular diet by the morning of postoperative day #1. She has some pain control difficulties using only Tylenol 300 pain medication was increased to [place] 5/325 mg. She was ultimately deemed stable for discharge by the afternoon of postoperative day #1 was discharged home to follow-up in the office in 2 weeks for recheck in 6 weeks routinely. Discharge instructions included calling for any significantly increased fever, pain, incisional complaints, abdominal complaints, GI complaints, or anything else that concerned her. She was additionally instructed to do no heavy lifting over the next the 6 weeks and to abstain from driving until off of all pain medications or 2 weeks' time, whichever came first. She understood her instructions and agrees follow up as noted above. Discharge medications included any normal home medications but a prescription for [place] 5/325 mg, 1-2 by mouth every 6 hours when necessary pain, #20 dispensed was provided. Discharge hemoglobin and hematocrit were 11.6 and 34.3 respectively. Procedures: #1. Minilaparotomy #2. Left oophorectomy Patient Condition at Discharge: Stable Plan - Discharge Summary Discharge Rx Participant: No New Discharge Prescriptions: No Action Pnv No.95/Ferrous Fum/Folic AC [ Multivitamin Tablet] 1 tab PO DAILY Discharge Medication List Pnv No.95/Ferrous Fum/Folic AC [ Multivitamin Tablet] 1 tab PO DAILY 05/21/21 [History] Follow up Appointment(s)/Referral(s): Ace Richardson MD [STAFF PHYSICIAN] - 2 Weeks Discharge Disposition: HOME SELF-CARE
[2021-05-26] MEDS: LACTATED RINGERS 1,000 ML IV SCH (11:09)
[2021-05-26 15:06] VITALS: BP 97/62; PULSE 66; RESP 15; TEMP 98.3
== END 2021-05-26 17:07 | disposition home or self-care (01) ==
LOC: OR 07:08 → 6PED 10:18 → OR 15:21 → 6PED 16:48
PROVIDERS: ADMIT Obstetrics & Gynecology; ATTEND Obstetrics & Gynecology
DX: D27.0 Benign neoplasm of right ovary (principal); Z88.5 Allergy status to narcotic agent; Z91.030 Bee allergy status; Z87.59 Personal history of other complications of pregnancy, childbirth and the puerperium; Z90.79 Acquired absence of other genital organ(s); Z80.9 Family history of malignant neoplasm, unspecified; Z82.61 Family history of arthritis
CPT/HCPCS: 81025; 86900; 86901; 80051; 82565; 82947; 84520; 85025 ×2; 86850; 88307; 87635; 58940; G0378 ×2; J2250; J1200; J1100; J2710; J0690; J2405; J2001; J3010; J1170 ×3; J1885 ×2; J2370; J0330; J2704

== ENCOUNTER → 2021-09-08 | Outpatient (CLI) | payer OTHER | END | disposition home or self-care (01) | LOC: LABWHC1 15:40 | PROVIDERS: ATTEND Internal Medicine | DX: N91.2 Amenorrhea, unspecified (principal) | CPT/HCPCS: 36415; 84702 ==

== ENCOUNTER 2021-09-13 22:25 | Emergency (ER) | payer OTHER ==
[2021-09-13 23:06] VITALS: BP 118/99; PULSE 83; RESP 18; TEMP 99.2
[2021-09-13 23:42] LABS: Basophils # (A) 0.1 k/uL (0-0.2); Basophils % (A) 1 %; Eosinophils # (A) 0.2 k/uL (0-0.7); Eosinophils % (A) 1 %; HCT 38.7 % (34.0-46.0); HGB 13.1 gm/dL (11.4-16.0); Lymphocytes # (A) 3.6 k/uL (1.0-4.8); Lymphocytes % (A) 27 %; MCH 30.1 pg (25.0-35.0); MCHC 33.8 g/dL (31.0-37.0); MCV 89.2 fL (80.0-100.0); Mean Platelet Volume 8.3; Monocytes # (A) 0.8 k/uL (0-1.0); Monocytes % (A) 6 %; Neutrophils # (A) 8.6 k/uL (1.3-7.7); Neutrophils % (A) 64 %; Platelet Count 293 k/uL (150-450); RBC 4.34 m/uL (3.80-5.40); WBC 13.5 k/uL (3.8-10.6)
[2021-09-13 23:57] LABS: ALT 21 U/L (4-34); AST 21 U/L (14-36); African American GFR (CKD) >90 (>60 ml/min/1.73 sqM); Albumin 3.9 g/dL (3.5-5.0); Alkaline Phosphatase 69 U/L (38-126); Anion Gap 7 mmol/L; Blood Urea Nitrogen 13 mg/dL (7-17); Carbon Dioxide 23 mmol/L (22-30); Chloride 106 mmol/L (98-107); Glucose 91 mg/dL (74-99); Non-African American GFR(CKD) >90 (>60 ml/min/1.73 sqM); Potassium 4.1 mmol/L (3.5-5.1); Sodium 136 mmol/L (137-145); Total Bilirubin 0.3 mg/dL (0.2-1.3); Total Protein 6.9 g/dL (6.3-8.2)
[2021-09-14 00:02] LABS: Appearance,Urine Cloudy (Clear); Bilirubin,Urine Negative (Negative); Blood,Urine Negative (Negative); Color,Urine Yellow; Glucose,Urine (UA) Negative (Negative); Ketones,Urine Negative (Negative); Leukocyte Esterase,Urine Moderate (Negative); Nitrite,Urine Negative (Negative); PH, Urine 6.5 (5.0-8.0); Protein,Urine Negative (Negative); RBC,Urine 1 /hpf (0-5); Specific Gravity,Urine 1.024 (1.001-1.035); Squamous Epithelial Cell,Urine 8 /hpf (0-4); Urobilinogen,Urine <2.0 mg/dL (<2.0); WBC,Urine 5 /hpf (0-5)
[2021-09-14 00:13] LABS: HCG,Quantitative Serum 384.3 mIU/mL
--- NOTE | 2021-09-14 00:53 | US ---
EXAMINATION TYPE: Transabdominal DATE OF EXAM: 09/14/2021 12:37 AM COMPARISON: US, CT CLINICAL HISTORY: Right pelvic pain; 3 weeks ; Hx ectopic. Right-sided pelvic pain. Hx ectopi c in left tube, left tube removed 2019, left ovary removed 2020. Placental abruption 2019. EXAM PERFORMED: Transvaginal (TV) and Transabdominal (TA) EXAM MEASUREMENTS: GESTATIONAL AGE / DATING Physician Established: Not yet established. Dates by LMP: (6 weeks/3 days) EDC: 05/06/2022 Dates by First Scan: This is first scan. Dates by Current Scan for: No IUP seen at this time. MATERNAL ANATOMY Uterus: 8.8 x 4.4 x 4.3 cm. Anteverted. Appears slightly heterogeneous. Endometrium measures 1.34 cm . Right Ovary: 5.2 x 3.6 x 3.0 cm. *Appears enlarged versus upper limits of normal. Arterial and venous flow noted. Area of mixed echogenicity and peripheral vascularity seen measuring 3.5 x 3.1 x 2.6 cm. Left Ovary: Surgically absent. Post CDS / Adnexa: Complex fluid seen in CDS: 3.9 x 3.9 x 2.1 cm. Anechoic fluid seen in right adnexa : 2.2 x 2.1 x 1.8 cm. Presence of free fluid: Yes. Presence of corpus luteal cyst: Possible within right ovary-area of mixed echogenicity seen as mentio zaida above versus other. GESTATION / SURVEY IUP: No IUP seen at this time. Area of uncertainty seen within right ovary- area of mixed echogenici ty as mentioned above. Date of LMP: 07/30/2021 Beta HcG (if available): 384.3 mIU/mL IMPRESSION: The uterus is empty. No evidence of ovarian torsion. There is 3.2 cm cyst on the right ovary. No giovanni d adnexal mass. No definite gestational sac or pole or yolk sac. There is free fluid in the cul -de-sac.
[2021-09-14] MEDS ORDERED: SODIUM CHLORIDE 0.9% 1,000 ML IV STA (01:44)
--- NOTE | 2021-09-14 01:47 | ED ---
Female Urogenital HPI - General Chief complaint: Abdominal Pain Stated complaint: possible ectopic Time Seen by Provider: 09/14/21 00:58 Source: patient, RN notes reviewed, old records reviewed Mode of arrival: ambulatory Limitations: no limitations - History of Present Illness Initial comments: This is a 21-year-old female DF for evaluation of pain patient is complaining of abdominal pain abdominal pain in . Patient hasn't had a complicated pain and history multiple pregnancies did not and well. She has had abruption as well as an ectopic with surgery. Patient's complaining of right lower quadrant abdominal pain currently prior ovary was removed and the left tube was removed on the left. Patient has no vaginal bleeding states she had initial test about 5 days ago which was a blood test and positive. No nausea vomiting fever or other complaint currently MD Complaint: pelvic pain -: hour(s) Location: RLQ Radiation: suprapubic Severity: moderate Severity scale (1-10): 4 Quality: sharp Consistency: intermittent Improves with: none Worsens with: none Patient : Yes Associated Symptoms: abdominal pain - Related Data Sexually active: No Home Medications Medication Instructions Recorded Confirmed Pnv No.95/Ferrous Fum/Folic AC 1 tab PO DAILY 05/21/21 05/25/21 [ Multivitamin Tablet] Allergies Allergy/AdvReac Type Severity Reaction Status Date / Time morphine Allergy Rash/Hives Verified 09/13/21 23:04 venom-honey bee Allergy Unknown Verified 09/13/21 23:04 [bee venom (honey bee)] Review of Systems ROS Statement: Those systems with pertinent positive or pertinent negative responses have been documented in the HPI. ROS Other: All systems not noted in ROS Statement are negative. Past Medical History Past Medical History: No Reported History Additional Past Medical History / Comment(s): UTI,kidney stones. History of Any Multi-Drug Resistant Organisms: None Reported Past Surgical History: No Surgical Hx Reported Additional Past Surgical History / Comment(s): pre-cancerous lesion removed from scalp 2009. Left tubal removal 04/2020, placental abruption december 2019 , left sided ectopic apr 2020 Past Anesthesia/Blood Transfusion Reactions: No Reported Reaction Past Psychological History: No Psychological Hx Reported Smoking Status: Never smoker Past Alcohol Use History: None Reported Past Drug Use History: None Reported - Past Family History Mother Family Medical History: Deep Vein Thrombosis (DVT) General Exam Limitations: no limitations General appearance: alert, in no apparent distress Head exam: Present: atraumatic, normocephalic, normal inspection Eye exam: Present: normal appearance, PERRL, EOMI. Absent: scleral icterus, conjunctival injection, periorbital swelling ENT exam: Present: normal exam, mucous membranes moist Neck exam: Present: normal inspection. Absent: tenderness, meningismus, lymphadenopathy Respiratory exam: Present: normal lung sounds bilaterally. Absent: respiratory distress, wheezes, rales, rhonchi, stridor Cardiovascular Exam: Present: regular rate, normal rhythm, normal heart sounds. Absent: systolic murmur, diastolic murmur, rubs, gallop, clicks GI/Abdominal exam: Present: soft, tenderness (Suprapubic), normal bowel sounds. Absent: distended, guarding, rebound, rigid Extremities exam: Present: normal inspection, full ROM, normal capillary refill. Absent: tenderness, pedal edema, joint swelling, calf tenderness Back exam: Present: normal inspection Neurological exam: Present: alert, oriented X3, CN II-XII intact Psychiatric exam: Present: normal affect, normal mood Skin exam: Present: warm, dry, intact, normal color. Absent: rash Course Vital Signs 09/13/21 23:04 Temperature 99.2 F Pulse Rate 83 Respiratory 18 Rate Blood Pressure 118/99 O2 Sat by Pulse 98 Oximetry - Reevaluation(s) Reevaluation #1: 09/14/21 02:12 Medical record is reviewed Reevaluation #2: 09/14/21 02:13 Patient given Tylenol for pain 09/14/21 02:13 Patient is still with mild pain Reevaluation #3: 09/14/21 02:13 Patient informed results and questions are answered - Consultations Consultation #1: Spoke with Dr. Guajardo regarding patient is very family with patient and Dr. Guajardo is okay to see patient in the office after she gets a repeat beta hCG Medical Decision Making - Medical Decision Making 1 female with concern for abdominal pain and with possible ectopic. Patient does have abdominal pain and beta of 380, too early to see anything in the uterus, ultrasound shows asignificant acute disease, patient will follow-up with OB on an outpatient basis - Lab Data Result diagrams: 09/13/21 23:32 09/13/21 23:32 Lab Results 09/13/21 09/13/21 09/13/21 Range/Units 23:32 23:32 23:32 WBC 13.5 H (3.8-10.6) k/uL RBC 4.34 (3.80-5.40) m/uL Hgb 13.1 (11.4-16.0) gm/dL Hct 38.7 (34.0-46.0) % MCV 89.2 (80.0-100.0) fL MCH 30.1 (25.0-35.0) pg MCHC 33.8 (31.0-37.0) g/dL RDW 12.0 (11.5-15.5) % Plt Count 293 (150-450) k/uL MPV 8.3 Neutrophils % 64 % Lymphocytes % 27 % Monocytes % 6 % Eosinophils % 1 % Basophils % 1 % Neutrophils # 8.6 H (1.3-7.7) k/uL Lymphocytes # 3.6 (1.0-4.8) k/uL Monocytes # 0.8 (0-1.0) k/uL Eosinophils # 0.2 (0-0.7) k/uL Basophils # 0.1 (0-0.2) k/uL Sodium 136 L (137-145) mmol/L Potassium 4.1 (3.5-5.1) mmol/L Chloride 106 (98-107) mmol/L Carbon Dioxide 23 (22-30) mmol/L Anion Gap 7 mmol/L BUN 13 (7-17) mg/dL Creatinine 0.65 (0.52-1.04) mg/dL Est GFR (CKD-EPI)AfAm >90 (>60 ml/min/1.73 sqM) Est GFR (CKD-EPI)NonAf >90 (>60 ml/min/1.73 sqM) Glucose 91 (74-99) mg/dL Calcium 9.0 (8.4-10.2) mg/dL Total Bilirubin 0.3 (0.2-1.3) mg/dL AST 21 (14-36) U/L ALT 21 (4-34) U/L Alkaline Phosphatase 69 (38-126) U/L Total Protein 6.9 (6.3-8.2) g/dL Albumin 3.9 (3.5-5.0) g/dL HCG, Quant 384.3 mIU/mL Urine Color Yellow Urine Appearance Cloudy H (Clear) Urine pH 6.5 (5.0-8.0) Ur Specific Gordon 1.024 (1.001-1.035) Urine Protein Negative (Negative) Urine Glucose (UA) Negative (Negative) Urine Ketones Negative (Negative) Urine Blood Negative (Negative) Urine Nitrite Negative (Negative) Urine Bilirubin Negative (Negative) Urine Urobilinogen <2.0 (<2.0) mg/dL Ur Leukocyte Esterase Moderate H (Negative) Urine RBC 1 (0-5) /hpf Urine WBC 5 (0-5) /hpf Ur Squamous Epith Cells 8 H (0-4) /hpf Blood Type Blood Type Recheck Bld Type Recheck Status 09/13/21 Range/Units 23:32 WBC (3.8-10.6) k/uL RBC (3.80-5.40) m/uL Hgb (11.4-16.0) gm/dL Hct (34.0-46.0) % MCV (80.0-100.0) fL MCH (25.0-35.0) pg MCHC (31.0-37.0) g/dL RDW (11.5-15.5) % Plt Count (150-450) k/uL MPV Neutrophils % % Lymphocytes % % Monocytes % % Eosinophils % % Basophils % % Neutrophils # (1.3-7.7) k/uL Lymphocytes # (1.0-4.8) k/uL Monocytes # (0-1.0) k/uL Eosinophils # (0-0.7) k/uL Basophils # (0-0.2) k/uL Sodium (137-145) mmol/L Potassium (3.5-5.1) mmol/L Chloride (98-107) mmol/L Carbon Dioxide (22-30) mmol/L Anion Gap mmol/L BUN (7-17) mg/dL Creatinine (0.52-1.04) mg/dL Est GFR (CKD-EPI)AfAm (>60 ml/min/1.73 sqM) Est GFR (CKD-EPI)NonAf (>60 ml/min/1.73 sqM) Glucose (74-99) mg/dL Calcium (8.4-10.2) mg/dL Total Bilirubin (0.2-1.3) mg/dL AST (14-36) U/L ALT (4-34) U/L Alkaline Phosphatase (38-126) U/L Total Protein (6.3-8.2) g/dL Albumin (3.5-5.0) g/dL HCG, Quant mIU/mL Urine Color Urine Appearance (Clear) Urine pH (5.0-8.0) Ur Specific Gordon (1.001-1.035) Urine Protein (Negative) Urine Glucose (UA) (Negative) Urine Ketones (Negative) Urine Blood (Negative) Urine Nitrite (Negative) Urine Bilirubin (Negative) Urine Urobilinogen (<2.0) mg/dL Ur Leukocyte Esterase (Negative) Urine RBC (0-5) /hpf Urine WBC (0-5) /hpf Ur Squamous Epith Cells (0-4) /hpf Blood Type A Negative Blood Type Recheck A Neg Bld Type Recheck Status No - Radiology Data Radiology results: report reviewed (Ultrasound shows no significant ectopic, no IUP), image reviewed Disposition Clinical Impression: Abdominal pain in , Ovarian cyst Disposition: HOME SELF-CARE Condition: Good Instructions (If sedation given, give patient instructions): Abdominal Pain in (ED) Is patient prescribed a controlled substance at d/c from ED?: No Referrals: Rohan Leblanc MD [Primary Care Provider] - 1-2 days
[2021-09-14] MEDS ORDERED: ACETAMINOPHEN TAB 500 MG TAB PO STA (01:50)
== END 2021-09-14 02:31 | disposition home or self-care (01) ==
LOC: EC 22:25
DX: O34.81 Maternal care for other abnormalities of pelvic organs, first trimester (principal); N83.209 Unspecified ovarian cyst, unspecified side; Z3A.01 Less than 8 weeks gestation of pregnancy
CPT/HCPCS: 36415; 76801; 76817; 80053; 81001; 84702; 85025; 86900; 86901; 99284

== ENCOUNTER → 2021-09-15 | Outpatient (CLI) | payer OTHER | END | disposition home or self-care (01) | LOC: LABWHC1 13:59 | PROVIDERS: ATTEND Emergency Medicine | DX: Z32.01 Encounter for pregnancy test, result positive (principal) | CPT/HCPCS: 36415; 84702 ==

== ENCOUNTER 2021-12-14 01:11 | Emergency (ER) | payer OTHER ==
[2021-12-14 01:18] VITALS: RESP 18
[2021-12-14 02:05] LABS: Basophils # (A) 0.1 k/uL (0-0.2); Basophils % (A) 1 %; Eosinophils # (A) 0.2 k/uL (0-0.7); Eosinophils % (A) 2 %; HCT 34.9 % (34.0-46.0); HGB 12.1 gm/dL (11.4-16.0); Lymphocytes # (A) 3.5 k/uL (1.0-4.8); Lymphocytes % (A) 26 %; MCH 31.4 pg (25.0-35.0); MCHC 34.7 g/dL (31.0-37.0); MCV 90.2 fL (80.0-100.0); Mean Platelet Volume 8.4; Monocytes # (A) 0.6 k/uL (0-1.0); Monocytes % (A) 4 %; Neutrophils % (A) 66 %; Platelet Count 278 k/uL (150-450); RBC 3.87 m/uL (3.80-5.40); RDW 12.9 % (11.5-15.5); WBC 13.6 k/uL (3.8-10.6)
--- NOTE | 2021-12-14 02:28 | US ---
EXAMINATION TYPE: US OB limited DATE OF EXAM: 12/14/2021 COMPARISON: US OB 09/22/21 CLINICAL HISTORY: vaginal bleeding. Vaginal spotting per patient. Patient is 17 weeks . EXAM PERFORMED: Transabdominal (TA) GESTATIONAL AGE / DATING No growth performed on today?s study per ordering physician SURVEY PLACENTA: Anterior PREVIA: No Previa Ultrasound evidence of abruption? PRESENTATION: Vertex LIE: Longitudinal HEART RATE: 155 bpm RHYTHM: Normal Cardiac activity noted; no abnormalities seen today. IMPRESSION: There is anterior placenta and no placenta previa. No complicating process seen. Amniotic fluid is adequate.
[2021-12-14 03:38] VITALS: BP 90/61; PULSE 74; TEMP 98.5
--- NOTE | 2021-12-14 03:51 | ED ---
Female Urogenital HPI - General Chief complaint: Vaginal Bleeding Stated complaint: 17 weeks , bleeding Time Seen by Provider: 12/14/21 01:20 Source: patient Mode of arrival: ambulatory Limitations: no limitations - History of Present Illness Initial comments: Is a 21-year-old woman presenting to have evaluation of pelvic pains and spotting vaginal bleeding. States she has been having round ligament pain is, and tonight she was having similar pains. She indicates bilateral low pelvic areas. She states that the pains will be intermittent, moderate severity, aching, and it resolved. She was concerned when she had what she describes as some dark red spotting vaginal bleeding. There is currently no bleeding. The flow is less than a menstrual period. She is concerned because she has had previous miscarriages. When I interview the patient she is currently symptom- free. The patient has not had any upper abdominal pains. No leg pain or swelling. No nausea or vomiting. No change in urination. No change in bowel movements. MD Complaint: vaginal bleeding, pelvic pain -: hour(s) Location: LLQ, RLQ Radiation: non-radiating Severity: mild Quality: sharp Consistency: intermittent, now resolved Improves with: none Worsens with: none Patient : Yes Number of weeks : 17 Associated Symptoms: vaginal bleeding - Related Data Sexually active: Yes Home Medications Medication Instructions Recorded Confirmed Pnv No.95/Ferrous Fum/Folic AC 1 tab PO DAILY 05/21/21 09/22/21 [ Multivitamin Tablet] Clindamycin Phos/Benzoyl Perox 1 applic TOPICAL BID 09/22/21 09/22/21 [Benzaclin Gel] Clindamycin Phosphate 1 applic TOPICAL BID 09/22/21 09/22/21 Progesterone, Micronized 200 mg PO HS 09/22/21 09/22/21 [Progesterone] Allergies Allergy/AdvReac Type Severity Reaction Status Date / Time amoxicillin Allergy Rash/Hives Verified 12/14/21 01:19 morphine Allergy Rash/Hives Verified 12/14/21 01:18 venom-honey bee Allergy Unknown Verified 12/14/21 01:18 [bee venom (honey bee)] Review of Systems ROS Statement: Those systems with pertinent positive or pertinent negative responses have been documented in the HPI. ROS Other: All systems not noted in ROS Statement are negative. Constitutional: Denies: fever, chills Respiratory: Denies: cough, dyspnea Cardiovascular: Denies: chest pain, palpitations Gastrointestinal: Reports: as per HPI, abdominal pain. Denies: nausea, vomiting Genitourinary: Reports: discharge (Bleeding). Denies: urgency, dysuria, frequency, hematuria Musculoskeletal: Denies: back pain Skin: Denies: rash Neurological: Denies: headache Past Medical History Past Medical History: No Reported History Additional Past Medical History / Comment(s): UTI,kidney stones. History of Any Multi-Drug Resistant Organisms: None Reported Past Surgical History: No Surgical Hx Reported Additional Past Surgical History / Comment(s): pre-cancerous lesion removed from scalp 2009. Left tubal removal 04/2020, placental abruption december 2019 , left sided ectopic apr 2020 Past Anesthesia/Blood Transfusion Reactions: No Reported Reaction Past Psychological History: No Psychological Hx Reported Smoking Status: Never smoker Past Alcohol Use History: None Reported Past Drug Use History: None Reported - Past Family History Mother Family Medical History: Deep Vein Thrombosis (DVT) General Exam Limitations: no limitations General appearance: alert, in no apparent distress Head exam: Present: atraumatic, normocephalic Eye exam: Present: normal appearance. Absent: scleral icterus, conjunctival injection ENT exam: Present: normal oropharynx Neck exam: Present: normal inspection Respiratory exam: Present: normal lung sounds bilaterally. Absent: respiratory distress, wheezes, rales, rhonchi, stridor Cardiovascular Exam: Present: regular rate, normal rhythm, normal heart sounds. Absent: systolic murmur, diastolic murmur, rubs, gallop GI/Abdominal exam: Present: soft, other (Gravid uterus palpable approximately 3- 4 cm below the uterus). Absent: distended, tenderness, guarding, rebound, rigid, mass External exam: Present: other (Patient declines exam) Extremities exam: Present: normal inspection, normal capillary refill. Absent: pedal edema, calf tenderness Back exam: Present: normal inspection. Absent: CVA tenderness (R), CVA tenderness (L) Neurological exam: Present: alert Skin exam: Present: warm, dry, intact, normal color. Absent: rash Course Vital Signs 12/14/21 12/14/21 01:16 03:36 Temperature 98.2 F 98.5 F Pulse Rate 89 74 Respiratory 18 18 Rate Blood Pressure 115/82 90/61 O2 Sat by Pulse 98 100 Oximetry Medical Decision Making - Lab Data Result diagrams: 12/14/21 01:50 Lab Results 12/14/21 12/14/21 12/14/21 Range/Units 01:50 01:50 01:50 WBC 13.6 H (3.8-10.6) k/uL RBC 3.87 (3.80-5.40) m/uL Hgb 12.1 (11.4-16.0) gm/dL Hct 34.9 (34.0-46.0) % MCV 90.2 (80.0-100.0) fL MCH 31.4 (25.0-35.0) pg MCHC 34.7 (31.0-37.0) g/dL RDW 12.9 (11.5-15.5) % Plt Count 278 (150-450) k/uL MPV 8.4 Neutrophils % 66 % Lymphocytes % 26 % Monocytes % 4 % Eosinophils % 2 % Basophils % 1 % Neutrophils # 9.0 H (1.3-7.7) k/uL Lymphocytes # 3.5 (1.0-4.8) k/uL Monocytes # 0.6 (0-1.0) k/uL Eosinophils # 0.2 (0-0.7) k/uL Basophils # 0.1 (0-0.2) k/uL HCG, Quant 25502.7 mIU/mL Blood Type A Negative Blood Type Recheck A Neg Bld Type Recheck Status No Disposition Clinical Impression: Threatened Disposition: HOME SELF-CARE Condition: Good Instructions (If sedation given, give patient instructions): Threatened Miscarriage (ED) Is patient prescribed a controlled substance at d/c from ED?: No Referrals: Ace Richardson MD [Primary Care Provider] - 1-2 days
== END 2021-12-14 03:57 | disposition home or self-care (01) ==
LOC: EC 01:11
DX: O20.0 Threatened abortion (principal); Z3A.17 17 weeks gestation of pregnancy; Z88.5 Allergy status to narcotic agent; Z87.440 Personal history of urinary (tract) infections; Z87.442 Personal history of urinary calculi
CPT/HCPCS: 36415; 76815; 84702; 85025; 86900; 86901; 99284

== ENCOUNTER 2022-01-13 16:30 | Outpatient (CLI) | payer OTHER | END 2022-01-13 17:40 | disposition home or self-care (01) | LOC: FBPOP 16:30 | PROVIDERS: ATTEND Obstetrics & Gynecology | DX: O26.92 Pregnancy related conditions, unspecified, second trimester (principal); Z3A.21 21 weeks gestation of pregnancy; Z88.1 Allergy status to other antibiotic agents; Z88.5 Allergy status to narcotic agent; Z91.030 Bee allergy status | CPT/HCPCS: 99213 ==

== ENCOUNTER 2022-02-12 00:35 | Outpatient (CLI) | payer OTHER ==
[2022-02-12 01:03] VITALS: BP 120/74; PULSE 100; RESP 16; TEMP 98.2
--- NOTE | 2022-02-13 11:02 | P.MSEPDOC ---
Presenting Problems - Arrival Data Date of Arrival on Unit: 02/12/22 Time of Arrival on Unit: 00:35 Mode of Transport: Wheelchair - Complaint OB-Reason for Admission/Chief Complaint: Rule Out SROM Comment: Patient states that she feels pressure and rupture of membranes at 2330 02/12/22. Patient describes she was in the shower and felt a gush and feels pressure in pelvic area. Medical History - Information : 7 Para: 0 Term: 0 : 0 Abortions: Spontaneous or Elective: 7 Number of Living Children: 0 - Gestational Age Gestational Age by GERARDO (wks/days): 25 Weeks and 4 Days Review of Systems - Review of Systems Constitutional: No problems Breast: No problems ENT: No problems Cardiovascular: No problems Respiratory: No problems Gastrointestinal: No problems Genitourinary: No problems Musculoskeletal: No problems Neurological: No problems Skin: No problems Vital Signs - Temperature Temperature: 98.2 F Temperature Source: Oral - Pulse Pulse Oximetery Pulse Rate: 100 Pulse Assessment Method: Pulse Oximetry - Respirations Respiratory Rate: 16 Oxygen Delivery Method: Room Air - Blood Pressure Right Arm Blood Pressure: 120/74 Blood Pressure Mean: 89 Blood Pressure Source: Automatic Cuff Medical Screen Scoring - Assessment - Baby A Baseline FHR: 140 Heart Rate - NICHD Category: Category I (Normal) NST: Reactive Physician Notification - Physician Notified Physician Notified Date: 02/12/22 Physician Notified Time: 01:00 Physician: Ace Richardson New Order Received: Yes Maternal Triage Index - Urgent/Priority 2 Urgent Priority 2: Yes Provider Notified: Ace Richardson Provider Notified Time: 01:00 Criteria Met for Priority 2: Patient is 25 weeks and 4 days and states that while she was getting ready to get into shower and felt a gush of clear fluid and some pelvic pressure at 2330 02/12/22. Disposition - Disposition OB Disposition: Triage Discharge Date: 02/12/22 Discharge Time: 01:29 I agree with the RN Medical Screening Exam: Yes Physician's MSE Comment: I have neither seen nor examined the patient. Case reviewed; plan agreed upon as documented in EMR&OBIX.: Yes Diagnosis: RELATED CONDITIONS, UNSPECIFIED, SECOND TRIMESTER
== END 2022-02-12 01:25 | disposition home or self-care (01) ==
LOC: FBPOP 00:35
PROVIDERS: ATTEND Obstetrics & Gynecology
DX: O26.92 Pregnancy related conditions, unspecified, second trimester (principal); Z3A.25 25 weeks gestation of pregnancy
CPT/HCPCS: 84112; G0463; 99213

== ENCOUNTER 2022-02-27 08:53 | Outpatient (CLI) | payer OTHER ==
[2022-02-27 09:09] VITALS: BP 120/68; PULSE 101; RESP 18; TEMP 97.7
[2022-02-27] MEDS ORDERED: Rhogam IMMUNE GLOBULIN 1,500 UNIT/1 ML IM ONE (09:37)
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
== END 2022-02-27 13:00 | disposition home or self-care (01) ==
LOC: FBPOP 08:53
PROVIDERS: ATTEND Obstetrics & Gynecology
DX: O9A.213 Injury, poisoning and certain other consequences of external causes complicating pregnancy, third trimester (principal); Z04.3 Encounter for examination and observation following other accident; Z3A.28 28 weeks gestation of pregnancy; Z88.5 Allergy status to narcotic agent; Z91.030 Bee allergy status
CPT/HCPCS: 59025; 96372; 86900; 86901; 86850; G0463; J2790; 99214

== ENCOUNTER 2022-03-16 18:20 | Outpatient (CLI) | payer OTHER ==
[2022-03-16 18:35] LABS: Glucose,Whole Blood 87 mg/dL (70-110)
[2022-03-16 19:10] LABS: Basophils # (A) 0.1 k/uL (0-0.2); Basophils % (A) 0 %; Eosinophils # (A) 0.2 k/uL (0-0.7); Eosinophils % (A) 1 %; HCT 36.4 % (34.0-46.0); HGB 12.4 gm/dL (11.4-16.0); Lymphocytes # (A) 2.4 k/uL (1.0-4.8); Lymphocytes % (A) 17 %; MCH 31.2 pg (25.0-35.0); MCV 91.7 fL (80.0-100.0); Mean Platelet Volume 8.7; Monocytes # (A) 0.5 k/uL (0-1.0); Monocytes % (A) 4 %; Neutrophils # (A) 10.8 k/uL (1.3-7.7); Neutrophils % (A) 76 %; Platelet Count 290 k/uL (150-450); RBC 3.97 m/uL (3.80-5.40); RDW 13.5 % (11.5-15.5); WBC 14.2 k/uL (3.8-10.6)
[2022-03-16] MEDS: LACTATED RINGERS 1,000 ML IV SCH ×2 (19:10→20:16)
[2022-03-16 19:19] LABS: Appearance,Urine Clear (Clear); Bilirubin,Urine Negative (Negative); Blood,Urine Negative (Negative); Color,Urine Yellow; Glucose,Urine (UA) Negative (Negative); Ketones,Urine 1+ (Negative); Leukocyte Esterase,Urine Trace (Negative); Mucus,Urine Few /hpf; Nitrite,Urine Negative (Negative); PH, Urine 6.5 (5.0-8.0); Protein,Urine Trace (Negative); RBC,Urine 2 /hpf (0-5); Specific Gravity,Urine 1.029 (1.001-1.035); Squamous Epithelial Cell,Urine 4 /hpf (0-4); WBC,Urine 2 /hpf (0-5)
[2022-03-17 03:49] VITALS: BP 127/76; PULSE 127; RESP 16; TEMP 98.4
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
== END 2022-03-16 22:55 | disposition home or self-care (01) ==
LOC: FBPOP 18:20
PROVIDERS: ATTEND Obstetrics & Gynecology Obstetrics
DX: O99.353 Diseases of the nervous system complicating pregnancy, third trimester (principal); G89.11 Acute pain due to trauma; Z3A.30 30 weeks gestation of pregnancy; Z88.5 Allergy status to narcotic agent; Z91.030 Bee allergy status
CPT/HCPCS: 59025; 96360; 96361; 36415; 82731; 85025; 85384; 81001; G0463; 99213

== ENCOUNTER 2022-04-18 20:30 | Outpatient (CLI) | payer OTHER ==
[2022-04-18 22:20] VITALS: BP 123/73; PULSE 103; RESP 16; TEMP 99
--- NOTE | 2022-05-09 08:02 | P.MSEPDOC ---
Presenting Problems - Arrival Data Date of Arrival on Unit: 04/18/22 Time of Arrival on Unit: 20:30 Mode of Transport: Ambulatory - Complaint OB-Reason for Admission/Chief Complaint: Rule Out SROM, Decreased Movement Comment: pt c/o leaking since 1729, decreased fm since then as well Medical History - Information : 7 Para: 0 Term: 0 : 0 Abortions: Spontaneous or Elective: 0 Number of Living Children: 0 - Gestational Age Gestational Age by GERARDO (wks/days): 35 Weeks and 1 Days Review of Systems - Review of Systems Constitutional: No problems Breast: No problems ENT: No problems Cardiovascular: No problems Respiratory: No problems Gastrointestinal: No problems Genitourinary: No problems Musculoskeletal: No problems Neurological: No problems Skin: No problems Vital Signs - Temperature Temperature: 99 F Temperature Source: Temporal Artery Scan - Pulse Right Pulse Rate: 103 Pulse Assessment Method: Pulse Oximetry - Respirations Respiratory Rate: 16 Oxygen Delivery Method: Room Air O2 Sat by Pulse Oximetry: 97 - Blood Pressure Right Arm Blood Pressure: 123/73 Blood Pressure Mean: 89 Blood Pressure Source: Automatic Cuff Medical Screen Scoring - Cervical Exam Dilation (cm): 1 Membranes: Intact - Assessment - Baby A Baseline FHR: 150 Heart Rate - NICHD Category: Category I (Normal) NST: Reactive Physician Notification - Physician Notified Physician Notified Date: 04/18/22 Physician Notified Time: 21:36 Physician: Vesta Ye New Order Received: Yes - Notification Comment Comment: reported on pts c/o possible leaking, decreased fm, cramping. see obix for full report. orders to d/c home with instructions and education. keep scheduled appt in office on monday if no new complaints, otherwise return with any new or worsening complaints. Maternal Triage Index - Maternal Triage Index Presenting for scheduled procedure w/no complaint: No - Stat/Priority 1 Stat Priority 1: No - Urgent/Priority 2 Urgent Priority 2: Yes Provider Notified: Vesta Ye Provider Notified Time: 21:36 Criteria Met for Priority 2: 35/1. c/o possible srom. decreased fm Disposition - Disposition OB Disposition: Discharge to home, Written follow up instructions reviewed Discharge Date: 04/18/22 Discharge Time: 21:45 I agree with the RN Medical Screening Exam: Yes Case reviewed; plan agreed upon as documented in EMR&OBIX.: Yes Diagnosis: rule out rupture of membranes
== END 2022-04-18 21:45 | disposition home or self-care (01) ==
LOC: FBPOP 20:30
PROVIDERS: ATTEND Obstetrics & Gynecology
DX: O36.8130 Decreased fetal movements, third trimester, not applicable or unspecified (principal); Z3A.35 35 weeks gestation of pregnancy; Z88.5 Allergy status to narcotic agent; Z91.030 Bee allergy status
CPT/HCPCS: 59025; 84112; G0463; 99213

== ENCOUNTER 2022-05-11 16:53 | Inpatient (IN) | payer OTHER ==
--- NOTE | 2022-05-11 20:19 | US ---
EXAMINATION TYPE: US OB BPP wo non-stress DATE OF EXAM: 05/11/2022 COMPARISON: CLINICAL HISTORY: questionable heart tones. Low heart rate TECHNIQUE: Transabdominal (TA). Scoring by the pyridine recovery operator during real-time assessment. FINDINGS: BPP PARAMETERS: PRESENTATION: Vertex LIE: Longitudinal?? HEART RATE: 129 bpm RHYTHM: Normal BELKIS: 10.9 DIAPHRAGM IMAGED: Yes BPP SCORIN. Breathin (1 episode of breathing of 30 second duration in 30 minutes of scanning time) 2. Movement: 0 (at least 3 discrete body movements in 30 minutes) 3. Tone: 0 (1 episode of active flexion/extension of limb) 4. BELKIS: 2 (BELKIS index > 5cm) MAJOR CASE DETECTIVE NOTES: IMPRESSION: TOTAL SCORE: 4 / 8 The heart rate is 129
[2022-05-11] MEDS ORDERED: LACTATED RINGERS 1,000 ML IV SCH (21:00)
[2022-05-12] MEDS: LACTATED RINGERS 1,000 ML IV SCH ×7 (08:00→18:29)
[2022-05-12] MEDS ORDERED: CARBOPROST TROMETHAMINE 250 MCG/ML 1 ML AMP IM PRN (08:47)
[2022-05-12] MEDS ORDERED: TERBUTALINE 1 MG/ML VIAL SQ PRN (08:47)
[2022-05-12] MEDS ORDERED: METHYLERGONOVINE 0.2 MG/ML 1 ML AMP IM PRN (08:47)
[2022-05-12] MEDS ORDERED: OXYTOCIN 10 UNIT/ML 1 ML VIAL IM PRN (08:47)
[2022-05-12] MEDS ORDERED: LIDOCAINE 0.5% (PF) 5 MG/ML (50 ML SDV) SQ PRN (08:47)
[2022-05-12] MEDS ORDERED: PENICILLIN G POTASSIUM 5,000,000 UNIT in DEXTROSE 5% IN WATER 100 ML IVPB STA ×2 (08:47)
[2022-05-12] MEDS ORDERED: OXYTOCIN 30 UNITS/500 ML NS 30 UNIT in SALINE 1 500ML.BAG IV SCH ×2 (09:00→21:30)
--- NOTE | 2022-05-12 09:05 | P.HPOB ---
History of Present Illness H&P Date: 05/12/22 Chief Complaint: 38-3/7 weeks, induction the patient is a 22-year-old 6 para 0050 at 38-3/7 weeks by 7 week ultrasound who presented to the hospital and triage with complaints of possible rupture of membranes as well as vaginal bleeding. She was checked in the office yesterday and was noted to have moderate show at the time of presentation. Rupture of membranes was negative. Nevertheless, during her observation, she had a spontaneous 60-90 seconds the deceleration which returned to an otherwise reactive nonstress test. She then had a biophysical profile ordered which was reportedly 4 out of 8 with 2 points loss for both movement and flexion. As a result, she was admitted for 23 observation to awaiting decision regarding induction. heart tones are at this time category 1. Nevertheless, the decision was made to proceed with induction of labor secondary to a biophysical profile of 4 out of 8. Her is otherwise been essentially uncomplicated. She is Rh- and received RhoGAM at 28 weeks. She additionally is known to be group B strep positive. Obstetrical history: 6 para 0050 with 5 previous losses including one ectopic . She has not required D&C. Current statistics are listed in history of present illness. EDC of 05/22/2022 was established by seven-week ultrasound. Laboratory workup demonstrates a blood type of A- with a initially positive antibody screen as she had received RhoGAM early in but was negative at her 28 week drop. Remainder of laboratory workup was within normal limits. Early Glucola and second trimester Glucola were both within normal limits. Group B strep status is positive. Gynecologic history: Unremarkable with no history of any infections to include STDs. Review of Systems review of systems is confined to history of present illness. Past Medical History Past Medical History: No Reported History Additional Past Medical History / Comment(s): UTI,kidney stones. History of Any Multi-Drug Resistant Organisms: None Reported Past Surgical History: No Surgical Hx Reported Additional Past Surgical History / Comment(s): pre-cancerous lesion removed from scalp 2009. Left tubal removal 04/2020, placental abruption december 2019 , left sided ectopic apr 2020 Past Anesthesia/Blood Transfusion Reactions: No Reported Reaction Past Psychological History: No Psychological Hx Reported Smoking Status: Never smoker Past Alcohol Use History: None Reported Past Drug Use History: None Reported - Past Family History Mother Family Medical History: Deep Vein Thrombosis (DVT) Medications and Allergies Home Medications Medication Instructions Recorded Confirmed Type Pnv No.95/Ferrous Fum/Folic AC 1 tab PO DAILY 05/21/21 05/11/22 History [ Multivitamin Tablet] Aspirin [[place]] 81 mg PO DAILY 01/13/22 05/11/22 History Magnesium 200 mg PO DAILY 02/12/22 05/11/22 History Allergies Allergy/AdvReac Type Severity Reaction Status Date / Time morphine Allergy Anaphylaxis Verified 05/11/22 21:15 venom-honey bee Allergy Anaphylaxis Verified 05/11/22 21:15 [bee venom (honey bee)] Exam Vital Signs Temp Pulse Resp BP Pulse Ox 05/11/22 20:48 98.3 F 95 18 123/81 99 05/11/22 17:20 98 F 88 18 128/60 98 Intake and Output 05/11/22 05/12/22 05/12/22 22:59 06:59 14:59 Other: # Voids 1 Weight 79.379 kg in general, this is a well-developed, well-nourished white female in no acute distress. Her heart has a regular rhythm and rate without murmur. Her lungs are clear to us occlusion bilaterally in all sage. Her abdomen is gravid, nondistended, has normal active bowel sounds, soft, nontender, without any palpable masses aside from uterine fundus. Her extremities are without any c yanosis, clubbing, or edema and are nontender to palpation bilaterally. Digital cervical examination demonstrates her cervix to be 3 cm dilated, 40% effaced, the vertex in presentation at -3 station. Artificial rupture of membranes is carried out demonstrating clear fluid. Assessment and Plan (1) Term Current Visit: Yes Status: Acute Code(s): Z34.90 - ENCNTR FOR SUPRVSN OF NORMAL , UNSP, UNSP TRIMESTER SNOMED Code(s): 22108467 Plan: the patient is admitted for induction of labor secondary to a biophysical profile of 4 out of 8 despite a category 1 heart rate tracing. Pitocin augmentation has been started and she is undergone artificial rupture of membranes. She will have close maternal and surveillance and expectant management will be practice. She is a good candidate for either IV or epidural analgesia, whichever she may choose.
[2022-05-12 12:02] LABS: Basophils # (A) 0.1 k/uL (0-0.2); Basophils % (A) 1 %; Eosinophils # (A) 0.1 k/uL (0-0.7); Eosinophils % (A) 1 %; HCT 35.7 % (34.0-46.0); Lymphocytes # (A) 2.2 k/uL (1.0-4.8); Lymphocytes % (A) 21 %; MCHC 33.7 g/dL (31.0-37.0); Mean Platelet Volume 9.5; Monocytes # (A) 0.5 k/uL (0-1.0); Monocytes % (A) 5 %; Neutrophils # (A) 7.5 k/uL (1.3-7.7); Neutrophils % (A) 72 %; Platelet Count 190 k/uL (150-450); RBC 3.88 m/uL (3.80-5.40); RDW 13.1 % (11.5-15.5); WBC 10.4 k/uL (3.8-10.6)
[2022-05-12] MEDS ORDERED: ROPIVACAINE 100 MG, fentaNYL (PF). 200 MCG in SODIUM CHLORIDE 0.9% 76 ML EPIDURAL ONE (12:27)
[2022-05-12] MEDS: PENICILLIN G POTASSIUM 2,500,000 UNIT in DEXTROSE 5% IN WATER 100 ML IVPB SCH ×4 (12:58→17:02)
[2022-05-12] MEDS ORDERED: CITRIC ACID-SODIUM CITRATE 15 ML CUP PO ONE (20:04)
--- NOTE | 2022-05-12 20:19 | P.MSEPDOC ---
Presenting Problems - Arrival Data Date of Arrival on Unit: 05/12/22 Time of Arrival on Unit: 16:54 Mode of Transport: Portable - Complaint OB-Reason for Admission/Chief Complaint: Vaginal Bleeding Medical History - Information : 6 Para: 0 Term: 0 : 0 Abortions: Spontaneous or Elective: 5 Number of Living Children: 0 - Gestational Age Gestational Age by GERARDO (wks/days): 38 Weeks and 4 Days Review of Systems - Review of Systems Constitutional: No problems Breast: No problems ENT: No problems Cardiovascular: No problems Respiratory: No problems Gastrointestinal: No problems Genitourinary: No problems Musculoskeletal: No problems Neurological: No problems Skin: No problems Vital Signs - Temperature Temperature: 98.3 F Temperature Source: Temporal Artery Scan - Pulse Pulse Oximetery Pulse Rate: 95 Pulse Assessment Method: Pulse Oximetry - Respirations Respiratory Rate: 18 Oxygen Delivery Method: Room Air O2 Sat by Pulse Oximetry: 99 - Blood Pressure Right Arm Blood Pressure: 123/81 Blood Pressure Mean: 95 Blood Pressure Source: Automatic Cuff Medical Screen Scoring - Cervical Exam Dilation (cm): 3 Station: -3 Membranes: Intact - Uterine Contractions Frequency From (mins): 8 Duration From (seconds): 70 Duration To (seconds): 90 Intensity: Mild Resting: Soft to palpation - Assessment - Baby A Baseline FHR: 125 Heart Rate - NICHD Category: Category II (Indeterminate) NST: Reactive Physician Notification - Physician Notified Physician Notified Date: 05/11/22 Physician Notified Time: 17:55 Physician: Vesta Ye New Order Received: Yes - Notification Comment Comment: At 1755, Dr. Ye notified of 2 minuted deceleration, position change, moderate. variablility continued, she reviewed tracing and gave orders to monitor for another hour. and call her for further orders around 1900. At 1900, RN unsure of basline and if there are repetative. variables, or FHT returning to baseline and having prolonged accels, discussed FHT's. with Dr. Ye and asked for ultrasound, she ordered BPP and IV fluid bolus, and. then to call her with results. Called results of BPP at 2006. BPP 4/8 Orders recieved to admit patient for observation over night. Maternal Triage Index - Maternal Triage Index Presenting for scheduled procedure w/no complaint: No - Stat/Priority 1 Stat Priority 1: No - Urgent/Priority 2 Urgent Priority 2: No - Prompt/Priority 3 Prompt Priority 3: No - Non-Urgent/Priority 4 Non-Urgent Priority 4: Yes Criteria Met for Priority 4: >37 weeks, vginal d/c Disposition - Disposition OB Disposition: Admit, Observe, LDRP Suite Transferred to:: Suite 3 I agree with the RN Medical Screening Exam: Yes Case reviewed; plan agreed upon as documented in EMR&OBIX.: Yes Diagnosis: ENCOUNTER FOR FULL-TERM UNCOMPLICATED DELIVERY
[2022-05-12] MEDS ORDERED: OXYTOCIN 30 UNITS/500 ML NS BAG IV ONE (20:32)
[2022-05-12] MEDS ORDERED: ONDANSETRON 4 MG/2 ML VIAL ONE (20:32)
[2022-05-12] MEDS ORDERED: KETOROLAC 15 MG/ML 1 ML VIAL ONE (20:32)
[2022-05-12] MEDS ORDERED: diphenhydrAMINE 50 MG CAP PO PRN (21:21)
[2022-05-12] MEDS ORDERED: diphenhydrAMINE 25 MG CAP PO PRN (21:21)
[2022-05-12] MEDS ORDERED: HYDROmorphone 2 MG TAB PO PRN ×2 (21:21)
[2022-05-12] MEDS ORDERED: METOCLOPRAMIDE 5 MG/ML 2 ML VIAL IVP PRN (21:21)
[2022-05-12] MEDS ORDERED: ZOLPIDEM 5 MG TAB PO PRN (21:21)
[2022-05-12] MEDS ORDERED: SIMETHICONE 80 MG CHEWABLE PO PRN (21:21)
[2022-05-12] MEDS ORDERED: diphenhydrAMINE 50 MG/ML 1 ML VIAL IVP PRN ×2 (21:21)
[2022-05-12] MEDS ORDERED: NALOXONE 0.4 MG/ML 1 ML VIAL IV PRN (21:21)
[2022-05-12] MEDS ORDERED: ONDANSETRON 4 MG/2 ML VIAL IVP PRN (21:21)
[2022-05-12] MEDS ORDERED: LANOLIN CREAM 5 GM TUBE TOPICAL PRN (21:21)
[2022-05-12] MEDS ORDERED: HYDROmorphone PCA 10 MG/50 ML BAG IV PRN (21:30)
--- NOTE | 2022-05-12 21:32 | P.OP ---
Date of Procedure: 05/12/22 Preoperative Diagnosis: #1. 38-3/7 weeks, induction #2. Rh- #3. Group B strep colonization #4. Arrest of dilation and descent Postoperative Diagnosis: same plus #5. occiput posterior Procedure(s) Performed: #1. Primary low-transverse section Anesthesia: epidural Surgeon: Ace Richardson Casting Inspector #1: Heidi Crandall Estimated Blood Loss (ml): 200 IV fluids (ml): 900 Urine output (ml): 200 Pathology: none sent Condition: stable Disposition: floor Operative Findings: preoperative, the patient had labored all day working very slow progress through the latent phase of labor. She was at one point called 8 cm of dilation after which time I presented and checked her and found her to be 6 cm dilated approximately with the head not engaged in the pelvis and no pressure against the cervix. She was allowed continued labor for an hour which time there was no significant change. She additionally had intermittent prolonged deep decelerations with return to category 1 heart rate tracing following position change. Given these findings, the decision was made to proceed to the operating room. She was delivered by primary of a viable 7 lbs. 6 oz. baby boy with Apgars of 9 at 1 minute and 9 at 5 minutes delivered in the left occiput posterior position. The placenta was delivered manually, intact, and grossly normal with a grossly normal three-vessel cord. The uterus a right tube and ovaries were entirely normal to inspection. The left tube was surgically absent. There was a moderate to significant amount of scarring from the fascia through and into the abdominal cavity. Clear urine was seen throughout the case and following it. Description of Procedure: the patient was taken the operating room where she was prepped and draped in usual fashion after epidural anesthesia was bolused by the anesthesiologist. A Pfannenstiel incision was made through pre-existing scar and extended into the abdominal cavity with some difficulty encountered at the level of the rectus muscles and fascia where the scarring was fairly dense. Ultimately, the cavity was entered and created. The bladder peritoneum was significant a distal to the intended site of incision and was left intact. A 2 cm incision was made in the transverse plane to enter the uterus at which time clear fluid was again noted. The incision was extended bluntly. The head was delivered up and through the incision where the nose and mouth were thoroughly suctioned. A loose nuchal cord 1 was reduced prior to delivery of the body. The remainder of the infant was then delivered onto the field where the cord was doubly clamped, cut, and the passed for resuscitative measures with weight and Apgars as noted above. cord blood was collected for the necessity of RhoGAM. A segment of cord was then doubly clamped, cut, and set aside should cord gases become necessary. The placenta was delivered manually and intact as noted above. The uterus was exteriorized and the uterine cavity the uterus swept of any remaining placental or membranous fragments. The margins of the uterine incision were grasped with Jj clamps and the incision closed in 2 layers. The first layer was a running locking stitch of 0 chromic catgut followed by a running imbricating stitch of 0 chromic catgut. Hemostasis appeared to be excellent. The posterior cul-de-sac was suctioned with a guard and the uterine and ovarian findings are as noted above. The uterus was replaced within the abdominal cavity and the gutters swept of any remaining blood, fluid, or clot. The incision was reexaminedand any small points of bleeding were made hemostatic with the Bovie. After assuring hemostasis, the parietal peritoneum was loosely reapproximated and layer of muscles examined and made hemostatic with the Bovie. The fascia was closed with 2 running stitches of 0 Vicryl proceeding from the lateral margins to the midpoint. The subcutaneous tissues were irrigated, made hemostatic with the Bovie, and reapproximated with a running stitch of 30 plain catgut. The skin was reapproximated with a running subcuticular stitch of 4-0 Vicryl followed by half-inch Steri-Strips placed with Mastisol. Estimated blood loss for the case was approximately 200 mL. There were no complications. All sponge, instrument, and needle counts were correct. The patient tolerated the procedure all proceeded to the recovery room in stable condition. Both mother and infant are resting comfortably in recovery.
[2022-05-12] MEDS ORDERED: HYDROmorphone 1 MG/ML 1 ML SYRINGE IVP STA (22:31)
[2022-05-13] MEDS: PENICILLIN G POTASSIUM 2,500,000 UNIT in DEXTROSE 5% IN WATER 100 ML IVPB SCH ×2 (01:41)
[2022-05-13] MEDS: ACETAMINOPHEN TAB 500 MG TAB PO SCH ×4 (02:17→19:29)
[2022-05-13 02:30] VITALS: RESP 16
[2022-05-13 02:48] LABS: Basophils # (A) 0.1 k/uL (0-0.2); Basophils % (A) 1 %; Eosinophils # (A) 0.1 k/uL (0-0.7); Eosinophils % (A) 0 %; HCT 32.3 % (34.0-46.0); HGB 10.8 gm/dL (11.4-16.0); Lymphocytes # (A) 2.1 k/uL (1.0-4.8); Lymphocytes % (A) 14 %; MCH 30.7 pg (25.0-35.0); MCHC 33.4 g/dL (31.0-37.0); Monocytes # (A) 0.6 k/uL (0-1.0); Monocytes % (A) 4 %; Neutrophils # (A) 11.7 k/uL (1.3-7.7); Neutrophils % (A) 79 %; Platelet Count 194 k/uL (150-450); RBC 3.52 m/uL (3.80-5.40); RDW 12.9 % (11.5-15.5); WBC 14.8 k/uL (3.8-10.6)
[2022-05-13] MEDS: KETOROLAC 15 MG/ML 1 ML VIAL IVP PRN ×3 (03:33→16:19)
[2022-05-13] MEDS: SENNOSIDES-DOCUSATE SODIUM 1 EACH TAB PO SCH ×2 (09:02→19:30)
--- NOTE | 2022-05-13 11:45 | P.PNOBGPC ---
Subjective - Subjective Patient reports: Reports appetite normal, Reports voiding normally, Reports pain well controlled, Reports ambulating normally : doing well Objective - Vital Signs Latest vital signs: Vital Signs Temp Pulse Resp BP Pulse Ox 05/13/22 08:00 98.1 F 99 16 103/69 98 05/13/22 04:00 98.2 F 66 16 103/70 05/13/22 02:20 98.6 F 86 16 95/59 97 05/13/22 00:00 15 05/12/22 23:28 95 16 157/72 93 L 05/12/22 22:58 98.3 F 93 16 157/77 95 05/12/22 22:28 98.4 F 88 15 160/75 94 L 05/12/22 22:13 98.7 F 16 152/71 98 05/12/22 21:58 98.5 F 16 131/77 97 05/12/22 21:43 79 16 115/56 97 05/12/22 21:28 98.4 F 85 16 138/75 98 05/12/22 20:19 98.3 F 95 18 123/81 99 Intake and Output 05/12/22 05/13/22 05/13/22 22:59 06:59 14:59 Intake Total 240 480 Output Total 195 1021 1200 Balance 45 -541 -1200 Intake: Oral 240 480 Output: Urine 700 1200 Uretheral (Chavez) 700 Estimated Blood Loss 195 Output, Quantitative 321 Blood Loss Other: # Voids 1 1 - Exam Extremities: Present: normal Abdomen: Present: normal appearance, soft. Absent: distention, tenderness Incision: Present: normal, dry, intact Uterus: Present: normal, firm (uterine fundus is tonic inappropriately tender just below the umbilicus.) - Labs Labs: Abnormal Lab Results - Last 24 Hours (Table) 05/13/22 Range/Units 02:11 WBC 14.8 H (3.8-10.6) k/uL RBC 3.52 L (3.80-5.40) m/uL Hgb 10.8 L (11.4-16.0) gm/dL Hct 32.3 L (34.0-46.0) % Neutrophils # 11.7 H (1.3-7.7) k/uL Assessment and Plan (1) Term Current Visit: Yes Status: Acute Code(s): Z34.90 - ENCNTR FOR SUPRVSN OF NORMAL , UNSP, UNSP TRIMESTER SNOMED Code(s): 34704621 (2) S/P section Current Visit: Yes Status: Acute Code(s): Z98.891 - HISTORY OF UTERINE SCAR FROM PREVIOUS SURGERY SNOMED Code(s): 383428320 Plan: continue routine and postoperative care. I would anticipate discharge home tomorrow pending complications. i have encouraged the patient in the hallways at least 4 times daily.
[2022-05-13] MEDS: LACTATED RINGERS 1,000 ML IV SCH (20:25)
[2022-05-13] MEDS: IBUPROFEN 600 MG TAB PO SCH ×2 (20:27→23:41)
[2022-05-14] MEDS: LACTATED RINGERS 1,000 ML IV SCH (02:34)
[2022-05-14] MEDS: ACETAMINOPHEN TAB 500 MG TAB PO SCH ×2 (02:36→08:43)
[2022-05-14] MEDS: IBUPROFEN 600 MG TAB PO SCH ×2 (06:04→12:34)
[2022-05-14 07:59] VITALS: BP 123/65; PULSE 88; TEMP 98.3
[2022-05-14] MEDS: SENNOSIDES-DOCUSATE SODIUM 1 EACH TAB PO SCH (08:42)
--- NOTE | 2022-05-14 11:41 | P.DS ---
Providers Date of admission: 05/11/22 20:36 Expected date of discharge: 05/14/22 Attending physician: Ace Richardson Primary care physician: Stated None - Discharge Diagnosis(es) (1) Term Current Visit: Yes Status: Acute (2) S/P section Current Visit: Yes Status: Acute Hospital Course: the patient is a 22-year-old 6 para 0050 admitted at 38-3/7 weeks by good dating parameters. She initially had a single deceleration while in triage for rule out rupture of membranes and a biophysical profile was ordered. Binding Printer reported a biophysical profile of 4 out of 8 though breathing was noted and the heart tones were otherwise category 1. As a result, the decision was made to proceed with induction. She had Pitocin augmentation started and underwent artificial rupture of membranes. She later had an epidural catheter placed for analgesia. She progressed to approximately 6-7 cm at which time she had arrest of dilation and descent the head was never well engaged in the pelvis. The decision was made to proceed to the operating room where she was delivered of a viable 7 lbs. 6 oz. baby boy with Apgars of 9 at 1 minute and 9 at 5 minutes. Her postoperative course was unremarkable with vital signs remained stable and her temperature was afebrile throughout. She was deemed stable for discharge on postoperative and day #2 was discharged home to follow-up in the office in 2 weeks for an incision check and 6 weeks routinely. Discharge instructions included calling for any significantly increased bleeding or foul-smelling lochia, significantly increased fever abdominal pain, perineal complaints, breast complaints, incisi onal complaints, or anything else that concerned her. She was additionally instructed to have nothing in the vagina for at least 6 weeks time to include intercourse and to abstain from any heavy lifting over the same period of time. His last instructed to do no driving until off of all pain medications or 2 weeks' time, whichever came first. She understood her instructions and agrees to follow up as noted above. Discharge medications included continued vitamins as she has opted to breast-feed. She was otherwise provided a prescription for Tylenol 3, 1-2 by mouth every 6 hours when necessary pain, #20 dispensed with no refills. Maternal blood type is A- and cord blood was sent for evaluation for the necessity of RhoGAM prior to discharge. Rubella status is immune. Discharge hemoglobin and hematocrit were 10.8 and 32.3 respectively Procedures: #1. Pitocin induction #2. Artificial rupture of membranes #3. Epidural analgesia #4. Primary low-transverse section Patient Condition at Discharge: Stable Plan - Discharge Summary New Discharge Prescriptions: No Action Magnesium 200 mg PO DAILY Pnv No.95/Ferrous Fum/Folic AC [ Multivitamin Tablet] 1 tab PO DAILY Aspirin [Vazalore] 81 mg PO DAILY Discharge Medication List Pnv No.95/Ferrous Fum/Folic AC [ Multivitamin Tablet] 1 tab PO DAILY 05/21/21 [History] Aspirin [Vazalore] 81 mg PO DAILY 01/13/22 [History] Magnesium 200 mg PO DAILY 02/12/22 [History] Follow up Appointment(s)/Referral(s): Ace Richardson MD [STAFF PHYSICIAN] - 2 Weeks Discharge Disposition: HOME SELF-CARE
== END 2022-05-14 14:30 | disposition home or self-care (01) | DRG 788 ==
LOC: FBPOP 16:53 → 4FBP 20:36
PROVIDERS: ADMIT Obstetrics & Gynecology; ATTEND Obstetrics & Gynecology
PROC: 4A0HXCZ Measurement of Products of Conception, Cardiac Rate, External Approach (ICD-10-PCS; 2022-05-12)
PROC: BY4FZZZ Ultrasonography of Third Trimester, Single Fetus (ICD-10-PCS; 2022-05-12)
PROC: 10D00Z1 Extraction of Products of Conception, Low, Open Approach (ICD-10-PCS; principal; 2022-05-12 20:30)
DX: O32.4XX0 Maternal care for high head at term, not applicable or unspecified (principal); O26.23 Pregnancy care for patient with recurrent pregnancy loss, third trimester; O99.824 Streptococcus B carrier state complicating childbirth; O69.81X0 Labor and delivery complicated by cord around neck, without compression, not applicable or unspecified; O62.0 Primary inadequate contractions; Z37.0 Single live birth; Z3A.38 38 weeks gestation of pregnancy; Z87.442 Personal history of urinary calculi; Z88.5 Allergy status to narcotic agent; Z91.030 Bee allergy status; O26.893 Other specified pregnancy related conditions, third trimester; Z67.41 Type O blood, Rh negative; Z87.440 Personal history of urinary (tract) infections
CPT/HCPCS: 59025; 76819; 84112; 85025; 86850; 86900; 86901; 99213

== ENCOUNTER 2022-07-30 02:17 | Emergency (ER) | payer OTHER ==
[2022-07-30 02:22] VITALS: BP 137/80; PULSE 85; RESP 18; TEMP 97.9
--- NOTE | 2022-07-30 03:47 | ED ---
Back Pain HPI - General Chief Complaint: Back Pain/Injury Stated Complaint: Abdominal pain Time Seen by Provider: 07/30/22 03:31 Source: patient, RN notes reviewed, old records reviewed Limitations: no limitations - History of Present Illness Initial Comments: This is a 22-year-old female DF for evaluation. Patient Dese for evaluation of abdominal pain. Please is like prior ectopic. Patient gave 2-3 months ago. Patient did not take out test. Patient is having abdominal pain with feels a prior ectopic. Minimal bleeding. No other significant complaints MD Complaint: back pain -: hour(s) Similar Symptoms Previously: Yes Place: home Radiation: none Severity: mild Severity scale (1-10): 3 Quality: sharp Consistency: intermittent Improves With: none Worsens With: none Associated Symptoms: denies other symptoms Treatments Prior to Arrival: other (0) - Related Data Home Medications Medication Instructions Recorded Confirmed Pnv No.95/Ferrous Fum/Folic AC 1 tab PO DAILY 05/21/21 05/11/22 [ Multivitamin Tablet] Aspirin [Vazalore] 81 mg PO DAILY 01/13/22 05/11/22 Magnesium 200 mg PO DAILY 02/12/22 05/11/22 Allergies Allergy/AdvReac Type Severity Reaction Status Date / Time morphine Allergy Anaphylaxis Verified 07/30/22 02:22 venom-honey bee Allergy Anaphylaxis Verified 07/30/22 02:22 [bee venom (honey bee)] Review of Systems ROS Statement: Those systems with pertinent positive or pertinent negative responses have been documented in the HPI. ROS Other: All systems not noted in ROS Statement are negative. Past Medical History Past Medical History: No Reported History Additional Past Medical History / Comment(s): UTI,kidney stones. ectopic History of Any Multi-Drug Resistant Organisms: None Reported Past Surgical History: No Surgical Hx Reported Additional Past Surgical History / Comment(s): pre-cancerous lesion removed from scalp 2009. Left tubal removal 04/2020, placental abruption december 2019 , left sided ectopic apr 2020 Past Anesthesia/Blood Transfusion Reactions: No Reported Reaction Past Psychological History: No Psychological Hx Reported Smoking Status: Never smoker Past Alcohol Use History: None Reported Past Drug Use History: None Reported - Past Family History Mother Family Medical History: Deep Vein Thrombosis (DVT) General Exam Limitations: no limitations General appearance: alert, in no apparent distress Head exam: Present: atraumatic, normocephalic, normal inspection Eye exam: Present: normal appearance, PERRL, EOMI. Absent: scleral icterus, conjunctival injection, periorbital swelling ENT exam: Present: normal exam, mucous membranes moist Neck exam: Present: normal inspection. Absent: tenderness, meningismus, lymphadenopathy Respiratory exam: Present: normal lung sounds bilaterally. Absent: respiratory distress, wheezes, rales, rhonchi, stridor Cardiovascular Exam: Present: regular rate, normal rhythm, normal heart sounds. Absent: systolic murmur, diastolic murmur, rubs, gallop, clicks GI/Abdominal exam: Present: soft, normal bowel sounds. Absent: distended, tenderness, guarding, rebound, rigid Extremities exam: Present: normal inspection, full ROM, normal capillary refill. Absent: tenderness, pedal edema, joint swelling, calf tenderness Back exam: Present: normal inspection Neurological exam: Present: alert, oriented X3, CN II-XII intact Psychiatric exam: Present: normal affect, normal mood Skin exam: Present: warm, dry, intact, normal color. Absent: rash Course Vital Signs 07/30/22 02:20 Temperature 97.9 F Pulse Rate 85 Respiratory 18 Rate Blood Pressure 137/80 O2 Sat by Pulse 100 Oximetry - Reevaluation(s) Reevaluation #1: 07/30/22 05:10 Medical record is reviewed Reevaluation #2: 07/30/22 05:10 Patient not requiring any pain control Reevaluation #3: 07/30/22 05:10 patient informed results and questions answered Medical Decision Making - Medical Decision Making 22 female DF for evaluation patient Dese for evaluation abdominal pain believes it may be ectopic , patient is not computed tomography scan is negative negative for appendicitis. Patient can be discharged home - Lab Data Lab Results 07/30/22 07/30/22 Range/Units 03:53 03:53 Urine Color Light Yellow Urine Appearance Clear (Clear) Urine pH 6.5 (5.0-8.0) Ur Specific [place] 1.024 (1.001-1.035) Urine Protein Negative (Negative) Urine Glucose (UA) Negative (Negative) Urine Ketones Negative (Negative) Urine Blood Negative (Negative) Urine Nitrite Negative (Negative) Urine Bilirubin Negative (Negative) Urine Urobilinogen <2.0 (<2.0) mg/dL Ur Leukocyte Esterase Negative (Negative) Urine HCG, Qual Not Detected (Not Detectd) - Radiology Data Radiology results: report reviewed (CT head and pelvis is negative for acute disease), image reviewed Disposition Clinical Impression: Mid back pain Disposition: HOME SELF-CARE Condition: Good Instructions (If sedation given, give patient instructions): Acute Low Back Pain (ED) Is patient prescribed a controlled substance at d/c from ED?: No Referrals: Rohan Leblanc MD [Primary Care Provider] - 1-2 days Time of Disposition: 05:10
[2022-07-30 04:05] LABS: Appearance,Urine Clear (Clear); Bilirubin,Urine Negative (Negative); Blood,Urine Negative (Negative); Color,Urine Light Yellow; Glucose,Urine (UA) Negative (Negative); Ketones,Urine Negative (Negative); Leukocyte Esterase,Urine Negative (Negative); Nitrite,Urine Negative (Negative); PH, Urine 6.5 (5.0-8.0); Protein,Urine Negative (Negative); Specific Gravity,Urine 1.024 (1.001-1.035); Urobilinogen,Urine <2.0 mg/dL (<2.0)
--- NOTE | 2022-07-30 05:04 | CT ---
EXAMINATION TYPE: CT abdomen pelvis wo con DATE OF EXAM: 07/30/2022 COMPARISON: 08/24/2020 HISTORY: RIGHT SIDED ABD PAIN CT DLP: 683.2 mGycm Automated exposure control for dose reduction was used. Images obtained from the diaphragm to the floor of the pelvis with no contrast. The lung bases are clear. No pleural effusion. Heart size is normal. No pericardial effusion. The esha er spleen stomach pancreas gallbladder appear normal. The bile ducts are not dilated. There is no adrenal mass. Kidneys show normal size and contour. No hydronephrosis. Ureters are not di lated. No retroperitoneal adenopathy (The appendix is Posterior and lateral and appears normal. The uterus is anteverted. No pelvic mass. The lumbar vertebrae have normal spacing and alignment. Posterior elements are intact. No compression fracture. Bony pelvis is intact. The hip joints are intact. Sacroiliac joints are intact. IMPRESSION: Normal appendix. No acute abnormality in the abdomen and pelvis. No adverse change compared to old ex am. There is clearing of the left side teratoma pelvic mass compared to old exam.
== END 2022-07-30 05:19 | disposition home or self-care (01) ==
LOC: EC 02:17
DX: M54.50 Low back pain, unspecified (principal); Z88.6 Allergy status to analgesic agent; Z88.5 Allergy status to narcotic agent; Z91.030 Bee allergy status; Z79.82 Long term (current) use of aspirin
CPT/HCPCS: 74176; 81003; 81025; 99284

== ENCOUNTER 2023-07-27 02:13 | Outpatient (CLI) | payer SELFPAY ==
[2023-07-27 03:20] LABS: Appearance,Urine Clear (Clear); Bilirubin,Urine Negative (Negative); Blood,Urine Negative (Negative); Color,Urine Yellow; Glucose,Urine (UA) Negative (Negative); Ketones,Urine 2+ (Negative); Leukocyte Esterase,Urine Moderate (Negative); Mucus,Urine Few /hpf; Nitrite,Urine Negative (Negative); PH, Urine 6.5 (5.0-8.0); Protein,Urine Trace (Negative); RBC,Urine 5 /hpf (0-5); Specific Gravity,Urine 1.037 (1.001-1.035); Squamous Epithelial Cell,Urine 8 /hpf (0-4); Urobilinogen,Urine <2.0 mg/dL (<2.0); WBC,Urine 13 /hpf (0-5)
[2023-07-27 04:17] VITALS: BP 110/69; PULSE 97; RESP 16; TEMP 96.8
--- NOTE | 2023-08-29 12:11 | P.MSEPDOC ---
Presenting Problems - Arrival Data Date of Arrival on Unit: 07/27/23 Time of Arrival on Unit: 02:13 Mode of Transport: Ambulatory - Complaint OB-Reason for Admission/Chief Complaint: Pain Comment: Patient presents to triage with complaints of constant upper abdomen cramping, lower back pain and nausea. Medical History - Information : 8 Para: 1 - Gestational Age Gestational Age by GERARDO (wks/days): 29 Weeks and 4 Days Review of Systems - Review of Systems Constitutional: No problems Breast: No problems ENT: No problems Cardiovascular: No problems Respiratory: No problems Gastrointestinal: No problems Genitourinary: No problems Musculoskeletal: No problems Neurological: No problems Skin: No problems Vital Signs - Temperature Temperature: 96.8 F Temperature Source: Temporal Artery Scan - Pulse Pulse Oximetery Pulse Rate: 97 Pulse Assessment Method: Pulse Oximetry - Respirations Respiratory Rate: 16 Oxygen Delivery Method: Room Air O2 Sat by Pulse Oximetry: 98 - Blood Pressure Right Arm Blood Pressure: 110/69 Blood Pressure Mean: 82 Blood Pressure Source: Automatic Cuff Medical Screen Scoring - Assessment - Baby A Baseline FHR: 150 Heart Rate - NICHD Category: Category I (Normal) NST: Reactive Physician Notification - Physician Notified Physician Notified Date: 07/27/23 Physician Notified Time: 02:41 Physician: Vesta Ye Order Received: Yes (discharge home antibiotic script sent to patients pharmacy) Maternal Triage Index - Stat/Priority 1 Stat Priority 1: No - Urgent/Priority 2 Urgent Priority 2: No - Prompt/Priority 3 Prompt Priority 3: No - Non-Urgent/Priority 4 Non-Urgent Priority 4: Yes Criteria Met for Priority 4: Patient presents to triage with complaints of constant upper abdomen cramping, lower back pain and nausea. Disposition - Disposition OB Disposition: Discharge to home I agree with the RN Medical Screening Exam: Yes Case reviewed; plan agreed upon as documented in EMR&OBIX.: Yes Diagnosis: UTI in
== END 2023-07-27 03:57 ==
LOC: FBPOP 02:13
PROVIDERS: ATTEND Obstetrics & Gynecology
DX: O23.42 Unspecified infection of urinary tract in pregnancy, second trimester (principal); M54.50 Low back pain, unspecified; R11.0 Nausea; R10.10 Upper abdominal pain, unspecified; Z3A.29 29 weeks gestation of pregnancy; Z88.5 Allergy status to narcotic agent; Z91.030 Bee allergy status; Z79.82 Long term (current) use of aspirin
CPT/HCPCS: 59025; 81001; 99213

== ENCOUNTER 2023-09-17 23:02 | Observation (INO) | payer BC ==
[2023-09-17] MEDS ORDERED: SODIUM CHLORIDE 0.9% 1,000 ML IV ONE (23:46)
[2023-09-17 23:59] LABS: Appearance,Urine Cloudy (Clear); Bacteria,Urine Rare /hpf; Bilirubin,Urine Negative (Negative); Blood,Urine Trace (Negative); Color,Urine Yellow; Glucose,Urine (UA) Negative (Negative); Ketones,Urine 4+ (Negative); Leukocyte Esterase,Urine Moderate (Negative); Mucus,Urine Many /hpf; Nitrite,Urine Negative (Negative); Protein,Urine 1+ (Negative); RBC,Urine 2 /hpf (0-5); Squamous Epithelial Cell,Urine 9 /hpf (0-4); WBC,Urine 7 /hpf (0-5)
[2023-09-18] MEDS: LACTATED RINGERS 1,000 ML IV SCH ×5 (00:17→12:43)
[2023-09-18] MEDS ORDERED: ACETAMINOPHEN IV (For NPO) 1,000 MG in EMPTY BAG 1 BAG IVPB ONE (01:14)
[2023-09-18 03:03] VITALS: RESP 16
[2023-09-18 10:48] LABS: Appearance,Urine Clear (Clear); Bilirubin,Urine Negative (Negative); Blood,Urine Negative (Negative); Color,Urine Light Yellow; Glucose,Urine (UA) Negative (Negative); Ketones,Urine 4+ (Negative); Leukocyte Esterase,Urine Negative (Negative); Nitrite,Urine Negative (Negative); Protein,Urine Trace (Negative); Specific Gravity,Urine 1.023 (1.001-1.035); Urobilinogen,Urine <2.0 mg/dL (<2.0)
--- NOTE | 2023-09-18 11:24 | P.HPOB ---
History of Present Illness H&P Date: 09/18/23 Chief Complaint: 36+ weeks, contractions The patient is a 23-year-old 8 para 1061 with history of previous spontaneous miscarriages as well as ectopic pregnancies. She did have 1 term delivery. Plan for this pregnancies repeat section at 39 weeks. She presents to the triage unit with complaint of significant contractions and was found to be ciaran regularly. Her cervix was closed and high but, given the degree of contractions and discomfort, the decision was made to admit the patient for observation. She had IV hydration which ultimately began to settle to contractions. She does have urine which is somewhat concerning for the possibility of a urinary tract infection but was definitely demonstrating significant dehydration with 4+ ketones. This morning, she feels significantly better but does continue to have some generalized pelvic and low back pain. The fetus is doing well with a reactive nonstress test, category 1 heart tones. Obstetrical history: 8 para 1061 with 1 term section and other losses as noted above. Current statistics are listed above. This has been uncomplicated. Group B strep status is pending. All the other laboratory workup as documented in the record. Gynecologic history: Unremarkable with no history of any infections to include STDs. Review of Systems Review of systems is confined to history of present illness. Past Medical History Past Medical History: No Reported History Additional Past Medical History / Comment(s): UTI,kidney stones. ectopic History of Any Multi-Drug Resistant Organisms: None Reported Past Surgical History: No Surgical Hx Reported Additional Past Surgical History / Comment(s): pre-cancerous lesion removed from scalp 2009. Left tubal removal 04/2020, placental abruption december 2019 , left sided ectopic apr 2020 Past Anesthesia/Blood Transfusion Reactions: No Reported Reaction Past Psychological History: No Psychological Hx Reported Smoking Status: Never smoker Past Alcohol Use History: None Reported Past Drug Use History: None Reported - Past Family History Mother Family Medical History: Deep Vein Thrombosis (DVT) Medications and Allergies Home Medications Medication Instructions Recorded Confirmed Type Pnv No.95/Ferrous Fum/Folic AC 1 tab PO DAILY 05/21/21 09/17/23 History [ Multivitamin Tablet] Aspirin [Vazalore] 81 mg PO DAILY 01/13/22 09/17/23 History Magnesium 200 mg PO DAILY 02/12/22 09/17/23 History Allergies Allergy/AdvReac Type Severity Reaction Status Date / Time morphine Allergy Anaphylaxis Verified 07/30/22 02:22 venom-honey bee Allergy Anaphylaxis Verified 07/30/22 02:22 [bee venom (honey bee)] Exam Vital Signs Temp Pulse Resp BP Pulse Ox 09/18/23 07:24 97.8 F 96 16 110/61 09/18/23 02:32 97.8 F 95 16 111/66 98 09/17/23 23:07 97.3 F L 115 H 16 151/79 99 Intake and Output 09/17/23 09/18/23 09/18/23 22:59 06:59 14:59 Other: # Voids 1 Weight 76.204 kg Endopelvis is a well-developed, well-nourished white female currently no acute distress. Her heart has a regular rhythm and rate without murmur. Her lungs appear to auscultation bilaterally in all sage. Her abdomen is gravid, nondistended, has normal active bowel sounds, soft, nontender, without any palpable masses aside from uterine fundus. Her extremities are without any cyanosis, clubbing, or edema and are nontender to palpation bilaterally. Digital cervical examination done straights her cervix to be 170 dilated, thick, with the vertex in presentation at a high station. This is unchanged from previous documentation in the office. Results Abnormal Lab Results - Last 24 Hours (Table) 09/17/23 09/18/23 Range/Units 23:31 10:33 Urine Appearance Cloudy H (Clear) Ur Specific [place] 1.040 H (1.001-1.035) Urine Protein 1+ H Trace H (Negative) Urine Ketones 4+ H 4+ H (Negative) Urine Blood Trace H (Negative) Ur Leukocyte Esterase Moderate H (Negative) Urine WBC 7 H (0-5) /hpf Ur Squamous Epith Cells 9 H (0-4) /hpf Urine Bacteria Rare H (None) /hpf Urine Mucus Many H (None) /hpf Assessment and Plan (1) contractions Current Visit: Yes Status: Acute Code(s): O47.00 - FALSE LABOR BEFORE 37 COMPLETED WEEKS OF GEST, UNSP TRI SNOMED Code(s): 688942953 (2) Dehydration Current Visit: Yes Status: Acute Code(s): E86.0 - DEHYDRATION SNOMED Code(s): 55545868 Plan: The patient was admitted for observation given the diagnoses as noted above. Contractions have essentially resolved. A category 1 heart rate tracing remains in place. The patient will have a repeat urinalysis done today. Her diet was advanced to regular. Anticipate discharging her home shortly.
--- NOTE | 2023-09-18 11:28 | P.DS ---
Providers Date of admission: 09/18/23 02:26 Expected date of discharge: 09/18/23 Attending physician: Ace Richardson Primary care physician: Stated None - Discharge Diagnosis(es) (1) contractions Current Visit: Yes Status: Acute (2) Dehydration Current Visit: Yes Status: Acute Hospital Course: The patient is a 23-year-old 8 para 1061 admitted with contractions at 36+ weeks. Given her degree of discomfort in the degree of contractions, decision made to admit her for observation. She had IV hydration carried out which caused resolution of her contractions. Her cervix never changed from documentation in the office of , thick, with the vertex in presentation at a [facility] station. Urinalysis is suggestive of a possible bladder infection but was somewhat contaminated. A second sample will be sent today. She will otherwise be discharged home to follow-up in the office as routinely scheduled. She is a scheduled repeat section for approximately 2 weeks from now. Procedures: #1. IV hydration #2. Observation Patient Condition at Discharge: Stable Plan - Discharge Summary New Discharge Prescriptions: No Action Magnesium 200 mg PO DAILY Pnv No.95/Ferrous Fum/Folic AC [ Multivitamin Tablet] 1 tab PO DAILY Aspirin [Vazalore] 81 mg PO DAILY Discharge Medication List Pnv No.95/Ferrous Fum/Folic AC [ Multivitamin Tablet] 1 tab PO DAILY 05/21/21 [History] Aspirin [Vazalore] 81 mg PO DAILY 01/13/22 [History] Magnesium 200 mg PO DAILY 02/12/22 [History] Follow up Appointment(s)/Referral(s): Ace Richardson MD [STAFF PHYSICIAN] - 1 Week Discharge Disposition: HOME SELF-CARE
[2023-09-18 12:13] VITALS: BP 94/53; PULSE 83; TEMP 98.5
== END 2023-09-18 14:35 | disposition home or self-care (01) ==
LOC: FBPOP 23:02 → 4FBP 09-18 02:26
PROVIDERS: ADMIT Obstetrics & Gynecology; ATTEND Obstetrics & Gynecology
DX: O60.00 Preterm labor without delivery, unspecified trimester (principal); O99.284 Endocrine, nutritional and metabolic diseases complicating childbirth; E86.0 Dehydration; O34.219 Maternal care for unspecified type scar from previous cesarean delivery; Z3A.36 36 weeks gestation of pregnancy; Z79.82 Long term (current) use of aspirin; Z88.5 Allergy status to narcotic agent
CPT/HCPCS: 59025; 99213; 96361; 96374; 81003; 81001; G0378; J0131; 96367

== ENCOUNTER 2023-10-02 06:03 | Inpatient (IN) | payer BC ==
[2023-09-27 15:47] VITALS: BMI 35.3
[2023-10-02] MEDS ORDERED: OXYTOCIN 10 UNIT/ML 1 ML VIAL IM PRN (06:15)
[2023-10-02] MEDS ORDERED: TERBUTALINE 1 MG/ML VIAL SQ PRN (06:15)
[2023-10-02] MEDS ORDERED: LIDOCAINE 0.5% (PF) 5 MG/ML (50 ML SDV) SQ PRN (06:15)
[2023-10-02] MEDS ORDERED: OXYTOCIN 30 UNITS/500 ML NS 30 UNIT in SALINE 1 500ML.BAG IV SCH ×2 (06:15→09:15)
[2023-10-02] MEDS ORDERED: TRANEXAMIC 1,000 MG/100ML-NACL 1,000 MG in EMPTY BAG 1 BAG IV PRN (06:15)
[2023-10-02] MEDS ORDERED: miSOPROStoL 200 MCG TAB PO PRN (06:15)
[2023-10-02] MEDS ORDERED: CARBOPROST TROMETHAMINE 250 MCG/ML 1 ML AMP IM PRN (06:15)
[2023-10-02] MEDS ORDERED: METHYLERGONOVINE 0.2 MG/ML 1 ML AMP IM PRN (06:15)
[2023-10-02] MEDS: LACTATED RINGERS 1,000 ML IV SCH ×2 (06:20→15:05)
[2023-10-02 06:32] LABS: Basophils # (A) 0.1 k/uL (0-0.2); Basophils % (A) 1 %; Eosinophils # (A) 0.1 k/uL (0-0.7); Eosinophils % (A) 1 %; HCT 35.5 % (34.0-46.0); HGB 12.9 gm/dL (11.4-16.0); Lymphocytes % (A) 27 %; MCH 33.2 pg (25.0-35.0); MCHC 36.3 g/dL (31.0-37.0); MCV 91.3 fL (80.0-100.0); Mean Platelet Volume 11.2; Monocytes # (A) 0.5 k/uL (0-1.0); Monocytes % (A) 5 %; Neutrophils # (A) 7.3 k/uL (1.3-7.7); Neutrophils % (A) 66 %; Platelet Count 177 k/uL (150-450); RBC 3.88 m/uL (3.80-5.40)
[2023-10-02] MEDS: CITRIC ACID-SODIUM CITRATE 15 ML CUP PO ONE (07:40)
[2023-10-02] MEDS ORDERED: KETOROLAC 30 MG/ML 1 ML VIAL ONE (08:04)
[2023-10-02] MEDS ORDERED: OXYTOCIN 30 UNITS/500 ML NS BAG IV ONE (08:04)
[2023-10-02] MEDS ORDERED: ONDANSETRON 4 MG/2 ML VIAL ONE (08:04)
[2023-10-02] MEDS ORDERED: NALBUPHINE 10 MG/ML (10 ML MDV) ONE (08:04)
[2023-10-02] MEDS ORDERED: diphenhydrAMINE 50 MG CAP PO PRN (09:08)
[2023-10-02] MEDS ORDERED: diphenhydrAMINE 25 MG CAP PO PRN (09:08)
[2023-10-02] MEDS ORDERED: diphenhydrAMINE 50 MG/ML 1 ML VIAL IVP PRN ×2 (09:08)
[2023-10-02] MEDS ORDERED: METOCLOPRAMIDE 5 MG/ML 2 ML VIAL IVP PRN (09:08)
[2023-10-02] MEDS ORDERED: NALOXONE 0.4 MG/ML 1 ML VIAL IV PRN (09:08)
[2023-10-02] MEDS ORDERED: LANOLIN CREAM 5 GM TUBE TOPICAL PRN (09:08)
[2023-10-02] MEDS ORDERED: ONDANSETRON 4 MG/2 ML VIAL IVP PRN (09:08)
[2023-10-02] MEDS ORDERED: ZOLPIDEM 5 MG TAB PO PRN (09:08)
[2023-10-02] MEDS ORDERED: HYDROmorphone PCA 10 MG/50 ML BAG IV PRN (09:08)
--- NOTE | 2023-10-02 09:15 | P.HPOB ---
History of Present Illness H&P Date: 10/02/23 Chief Complaint: 39 and one sevenths weeks, previous section, reque sting repeat The patient is a 23-year-old 8 para 1061 with 1 previous section and multiple early losses including an ectopic . She is admitted at 39 and one sevenths weeks as established by 6 week ultrasound. She is admitted for repeat low transverse section. Her was Dated only by a finding of polyhydramnios at full-term for which she had reassuring weekly NSTs. She otherwise was known to be group B strep positive. On labor and delivery, all signs reassuring with a category 1 heart tracing. Obstetrical history: 8 para 1061 with 1 term section intake, 1 ectopic and multiple early losses. Current statistics are listed in history present illness. EDC of 10/08/2023 was established by 6 week ultrasound. Laboratory workup demonstrates a blood type of A- with a negative antibody screen. Rubella status is immune. The remainder of the laboratory workup was within normal limits. One hour Glucola was normal and group B strep status is positive. Gynecologic history: Unremarkable with no history of any infections to include STDs. Review of Systems Review of systems is confined to history of present illness. Past Medical History Past Medical History: No Reported History Additional Past Medical History / Comment(s): UTI,kidney stones. ectopic pregnancies History of Any Multi-Drug Resistant Organisms: None Reported Past Surgical History: Section Additional Past Surgical History / Comment(s): pre-cancerous lesion removed from scalp 2009. Left fallopian tube removal 04/2020, lt ovary removed in 04/2021, placental abruption december 2019 , Past Anesthesia/Blood Transfusion Reactions: No Reported Reaction Past Psychological History: No Psychological Hx Reported Smoking Status: Never smoker Past Alcohol Use History: None Reported Past Drug Use History: None Reported - Past Family History Mother Family Medical History: Deep Vein Thrombosis (DVT) Medications and Allergies Home Medications Medication Instructions Recorded Confirmed Type Pnv No.95/Ferrous Fum/Folic AC 1 tab PO DAILY 05/21/21 10/02/23 History [ Multivitamin Tablet] Aspirin [Vazalore] 81 mg PO DAILY 01/13/22 10/02/23 History Magnesium 200 mg PO DAILY 02/12/22 10/02/23 History Allergies Allergy/AdvReac Type Severity Reaction Status Date / Time morphine Allergy Anaphylaxis Verified 10/02/23 06:14 venom-honey bee Allergy Anaphylaxis Verified 10/02/23 06:14 [bee venom (honey bee)] amoxicillin AdvReac Rash/Hives Verified 10/02/23 06:14 Exam Vital Signs Temp Pulse Resp BP Pulse Ox 10/02/23 06:09 97.4 F L 84 16 109/69 98 Intake and Output 10/01/23 10/02/23 10/02/23 22:59 06:59 14:59 Other: Weight 76.657 kg In general, this is a well-developed, well-nourished white female in no acute distress. Her heart has a regular rhythm and rate without murmur. Her lungs clear to auscultation bilaterally in all sage. Her abdomen is gravid, nondistended, has normal active bowel sounds, soft, nontender, without any palpable masses aside from uterine fundus. Her extremities are without any cyanosis, clubbing, or significant edema and are nontender to palpation bilaterally. Digital cervical examination is deferred. Results Result Diagrams: 10/02/23 06:23 Abnormal Lab Results - Last 24 Hours (Table) 10/02/23 Range/Units 06:23 WBC 11.0 H (3.8-10.6) k/uL Assessment and Plan (1) Previous section Current Visit: Yes Status: Acute Code(s): Z98.891 - HISTORY OF UTERINE SCAR FROM PREVIOUS SURGERY SNOMED Code(s): 155164075 (2) Term Current Visit: Yes Status: Acute Code(s): Z34.90 - ENCNTR FOR SUPRVSN OF NORMAL , UNSP, UNSP TRIMESTER SNOMED Code(s): 25418495 Plan: The patient is admitted for repeat low transverse section. The risks and complications of been thoroughly discussed and she has understood and agreed to proceed.
--- NOTE | 2023-10-02 09:20 | P.OP ---
Date of Procedure: 10/02/23 Preoperative Diagnosis: #1. 39 and one sevenths weeks, previous section, requesting repeat Postoperative Diagnosis: Same Procedure(s) Performed: #1. Repeat low transverse section Anesthesia: spinal Surgeon: Ace Richardson Hog Raiser #1: Tricia Kevin Estimated Blood Loss (ml): 535 IV fluids (ml): 1,300 Urine output (ml): 100 Pathology: none sent Condition: stable Disposition: floor Operative Findings: The patient was taken to the operating room where she was delivered of a viable 7 lbs. 12 oz. baby girl with Apgars of 9 at 1 minute and 9 at 5 minutes. There was a loose nuchal cord 1 reduced prior to delivery of the infant's body onto the field. The uterus, right fallopian tube and ovary were normal to inspection. The left fallopian tube was surgically absent and the ovary was not visualized and may have been covered by adhesive disease. The lower uterine segment prior to delivery was noted to be extraordinarily 10 for a single section. She did have a moderate to significant amount of scarring at the level of the fascia and rectus muscles. The placenta was delivered manually, intact, and grossly normal with a grossly normal three-vessel cord. Description of Procedure: The patient was prepped and draped in usual fashion after spinal anesthesia was administered by the anesthesiologist. A Pfannenstiel incision was made through pre-existing scar and extended into the abdominal cavity with some difficulty noted at the level of the fascia and muscles as there was a moderate amount of scarring. Intra-abdominal, there was minimal ongoing scarring though the lower uterine segment was extraordinarily thin. The bladder was noted to be significantly distal to the intended site of incision was left intact. A 270 incision was made the transverse plane of the lower uterine segment to enter the uterus at which time moderate amount of clear fluid was noted. The incision was extended in both directions using the bandage scissors. The head was delivered up and through the incision where the nose and mouth were thoroughly suctioned. A nuchal cord was reduced. The remainder of the was delivered onto the field where the cord was doubly clamped, cut, and the passed for resuscitative measures with weight and Apgars as noted above. Cord blood was collected per protocol. A segment of cord was doubly clamped, cut, and set aside should cord gases become necessary. The placenta was delivered manually and intact as noted above. The uterus was exteriorized and the interior cavity of the uterus swept of any remaining placental or membranous fragments. The margins of the incision were grasped with Jj clamps and the incision closed in 2 layers. The first layer was a running locking stitch of 0 chromic catgut from margin to margin followed by a running imbricating stitch of 0 chromic catgut from margin to margin. The posterior cul-de-sac was suctioned with a guard and the uterine and ovarian findings are as noted above with left ovary not being seen and the left tube being surgically absent. The remainder of the findings were normal. Uterus was replaced within the abdominal cavity and the gutters swept of any remaining blood, fluid, or clot. Any small points of bleeding were made hemostatic with the Bovie. After establishing adequate hemostasis, the parietal peritoneum was loosely reapproximated and layer of muscles made hemostatic with the Bovie. The fascia was closed with 2 running stitches of 0 Vicryl proceeding from the lateral margins to the midpoint. The subcutaneous tissues were irrigated, made hemostatic with the Bovie, and reapproximated with a running stitch of 30 plain catgut. The skin was reapproximated with a running subcuticular stitch of 4-0 Vicryl followed by half-inch Steri-Strips placed with Mastisol. Quantitative blood loss for the case was 534 mL. There were no complications. All sponge, instrument, and needle counts were correct. The patient tolerated the procedure well and proceeded to the recovery room in stable condition. Both mother and are resting comfortably in recovery.
[2023-10-02] MEDS: ACETAMINOPHEN TAB 500 MG TAB PO SCH (14:20)
[2023-10-02] MEDS: KETOROLAC 15 MG/ML 1 ML VIAL IVP PRN (15:03)
[2023-10-02] MEDS: Rhogam IMMUNE GLOBULIN 1,500 UNIT/1 ML IM ONE (15:16)
[2023-10-02 15:53] LABS: Hepatitis B Surface Antigen Nonreactive; Hepatitis C IgG Antibody Nonreactive
[2023-10-02] MEDS: IBUPROFEN 600 MG TAB PO SCH (18:21)
[2023-10-02] MEDS: SENNOSIDES-DOCUSATE SODIUM 1 EACH TAB PO SCH (19:37)
[2023-10-02] MEDS: PENICILLIN G POTASSIUM 5,000,000 UNIT in DEXTROSE 5% IN WATER 100 ML IVPB ONE (19:47)
[2023-10-03 07:20] LABS: Basophils % (A) 0 %; Eosinophils # (A) 0.1 k/uL (0-0.7); Eosinophils % (A) 1 %; HCT 28.5 % (34.0-46.0); HGB 10.2 gm/dL (11.4-16.0); Lymphocytes # (A) 1.6 k/uL (1.0-4.8); Lymphocytes % (A) 15 %; MCH 33.2 pg (25.0-35.0); MCHC 35.9 g/dL (31.0-37.0); MCV 92.7 fL (80.0-100.0); Mean Platelet Volume 11.7; Monocytes # (A) 0.5 k/uL (0-1.0); Monocytes % (A) 4 %; Neutrophils # (A) 8.2 k/uL (1.3-7.7); Neutrophils % (A) 78 %; Platelet Count 135 k/uL (150-450); RBC 3.08 m/uL (3.80-5.40); RDW 13.5 % (11.5-15.5); WBC 10.5 k/uL (3.8-10.6)
[2023-10-03] MEDS: SIMETHICONE 80 MG CHEWABLE PO PRN (07:56)
--- NOTE | 2023-10-03 08:44 | P.PNOBGPC ---
Subjective - Subjective Interval history: The patient reports fairly significant discomfort but also reports that she n ever received the BAG FILLER as ordered. As she is tolerating regular diet, she is now eligible for oral pain medications to manage her ongoing pain. Patient reports: Reports appetite normal, Reports voiding normally, Reports ambulating normally [place]: doing well Objective - Vital Signs Latest vital signs: Vital Signs Temp Pulse Resp BP Pulse Ox 10/03/23 08:09 97.6 F 76 16 97/62 10/03/23 00:00 97.9 F 57 L 18 110/67 100 10/02/23 19:49 98 F 88 18 107/70 98 10/02/23 15:30 98.3 F 70 18 95/63 96 10/02/23 11:10 66 16 106/56 98 10/02/23 10:39 66 16 104/61 98 10/02/23 10:10 98.2 F 63 16 113/65 97 10/02/23 09:55 73 16 112/56 97 10/02/23 09:40 57 L 16 107/69 98 10/02/23 09:25 74 16 108/57 97 10/02/23 09:10 97.2 F L 76 16 108/57 99 Intake and Output 10/02/23 10/03/23 10/03/23 22:59 06:59 14:59 Output Total 150 Balance -150 Output: Urine 150 Uretheral (Chavez) 100 Other: # Voids 1 2 - Exam Extremities: Present: normal Abdomen: Present: normal appearance, soft. Absent: distention, tenderness Incision: Present: normal, dry, intact Uterus: Present: normal, firm (The uterine fundus as tonic and moderately tender below the umbilicus.) - Labs Labs: Abnormal Lab Results - Last 24 Hours (Table) 10/03/23 Range/Units 07:03 RBC 3.08 L (3.80-5.40) m/uL Hgb 10.2 L (11.4-16.0) gm/dL Hct 28.5 L (34.0-46.0) % Plt Count 135 L (150-450) k/uL Neutrophils # 8.2 H (1.3-7.7) k/uL Assessment and Plan (1) Previous section Current Visit: Yes Status: Acute Code(s): Z98.891 - HISTORY OF UTERINE SCAR FROM PREVIOUS SURGERY SNOMED Code(s): 274484020 (2) Term Current Visit: Yes Status: Acute Code(s): Z34.90 - ENCNTR FOR SUPRVSN OF NORMAL , UNSP, UNSP TRIMESTER SNOMED Code(s): 66276147 Plan: Continue routine and postoperative care. I have encouraged the patient ambulate routinely. I would anticipate discharge home tomorrow pending no complications.
[2023-10-03] MEDS ORDERED: CALCIUM CARBONATE 500 MG CHEWABLE PO PRN (09:56)
[2023-10-04 01:53] VITALS: RESP 16
[2023-10-04 07:35] VITALS: BP 92/60; PULSE 70; TEMP 98.6
--- NOTE | 2023-10-04 08:28 | P.DS ---
Providers Date of admission: 10/02/23 06:03 Expected date of discharge: 10/04/23 Attending physician: Ace Richardson Primary care physician: Stated None - Discharge Diagnosis(es) (1) Previous section Current Visit: Yes Status: Acute (2) Term Current Visit: Yes Status: Acute (3) S/P section Current Visit: Yes Status: Acute Hospital Course: The patient is a 23-year-old 8 para 1061 presents to the hospital with a history of a previous section for repeat low transverse section. She presents at 39 and one sevenths weeks by good dating parameters and with all signs reassuring, category 1 heart rate tracing. Her has been complicated by finding of polyhydramnios which she had reassuring testing. Group B strep status was additionally positive. She was taken the operating room where she was delivered of a viable 7 lbs. 12 oz. baby girl with Apgars of 9 at 1 minute and 9 at 5 minutes. Her and postoperative course was unremarkable with vital signs remaining stable and her temperature was afebrile throughout. She was deemed stable for discharge on and postoperative day #2 was discharged home to follow-up in the office in 2 weeks for an incision check and 6 weeks routinely. Discharge instructions included calling for any significantly increased bleeding or foul- smelling lochia, significantly increased fever or abdominal pain, perineal complaints, breast complaints, incisional complaints, or anything also concerned her. She is additionally instructed to have nothing in the vagina for at least 6 weeks time to include intercourse and to abstain from any heavy lifting over the same period of time. She is less instructed to do no driving until off of all pain medications or 2 weeks' time, whichever came first. She understood her instructions and agrees to follow up as noted above. Discharge medications included continued vitamins as she has opted to breast-feed. She was additionally use [id number] analgesic pain medications as needed. She was provided with a prescription for Tylenol 3, 1-2 by mouth every 6 hours when necessary pain, #20 dispensed with no refills. Maternal blood type is A- and cord blood was sent for evaluation for the necessity of RhoGAM prior to discharge. Discharge hemoglobin and hematocrit were 10.2 and 28.5 respectively. Procedures: #1. Repeat low transverse section Patient Condition at Discharge: Stable Plan - Discharge Summary Discharge Rx Participant: Yes New Discharge Prescriptions: No Action Magnesium 200 mg PO DAILY Pnv No.95/Ferrous Fum/Folic AC [ Multivitamin Tablet] 1 tab PO DAILY Aspirin [Vazalore] 81 mg PO DAILY Discharge Medication List Pnv No.95/Ferrous Fum/Folic AC [ Multivitamin Tablet] 1 tab PO DAILY 05/21/21 [History] Aspirin [Vazalore] 81 mg PO DAILY 01/13/22 [History] Magnesium 200 mg PO DAILY 02/12/22 [History] Follow up Appointment(s)/Referral(s): Ace Richardson MD [STAFF PHYSICIAN] - 2 Weeks Discharge Disposition: HOME SELF-CARE
== END 2023-10-04 11:33 | disposition home or self-care (01) | DRG 788 ==
LOC: 4FBP 06:03
PROVIDERS: ADMIT Obstetrics & Gynecology; ATTEND Obstetrics & Gynecology
PROC: 10D00Z1 Extraction of Products of Conception, Low, Open Approach (ICD-10-PCS; principal; 2023-10-02 08:00)
DX: O34.211 Maternal care for low transverse scar from previous cesarean delivery (principal); O69.81X0 Labor and delivery complicated by cord around neck, without compression, not applicable or unspecified; O99.824 Streptococcus B carrier state complicating childbirth; O40.3XX0 Polyhydramnios, third trimester, not applicable or unspecified; Z37.0 Single live birth; Z87.442 Personal history of urinary calculi; Z90.721 Acquired absence of ovaries, unilateral; Z87.440 Personal history of urinary (tract) infections; Z88.5 Allergy status to narcotic agent; Z88.1 Allergy status to other antibiotic agents; Z91.030 Bee allergy status
CPT/HCPCS: 85025; 85461; 86701; 86803; 86850; 86900; 86901; 87340

== ENCOUNTER 2024-05-27 11:04 | Emergency (ER) | payer BC ==
[2024-05-27 11:12] VITALS: RESP 16; TEMP 98
[2024-05-27] MEDS ORDERED: ONDANSETRON 4 MG/2 ML VIAL IM STA (11:33)
[2024-05-27 12:04] LABS: Basophils # (A) 0.1 k/uL (0-0.2); Basophils % (A) 1 %; Eosinophils # (A) 0.2 k/uL (0-0.7); Eosinophils % (A) 3 %; HCT 40.2 % (34.0-46.0); HGB 13.3 gm/dL (11.4-16.0); Lymphocytes # (A) 2.3 k/uL (1.0-4.8); Lymphocytes % (A) 35 %; MCH 29.4 pg (25.0-35.0); MCHC 33.1 g/dL (31.0-37.0); MCV 88.9 fL (80.0-100.0); Mean Platelet Volume 8.1; Monocytes # (A) 0.3 k/uL (0-1.0); Monocytes % (A) 5 %; Neutrophils # (A) 3.5 k/uL (1.3-7.7); Neutrophils % (A) 54 %; Platelet Count 273 k/uL (150-450); RBC 4.52 m/uL (3.80-5.40); RDW 11.7 % (11.5-15.5); WBC 6.6 k/uL (3.8-10.6)
--- NOTE | 2024-05-27 12:07 | ED ---
General Adult HPI - General Stated complaint: Abd pain, Blood in stool Time Seen by Provider: 05/27/24 11:16 Source: patient Mode of arrival: ambulatory Limitations: no limitations - History of Present Illness Initial comments: 24 year old female presents to emergency department with chief complaint of bloody stools x 2 days. She reports recent in which she had a C-sec tion and constipation. Stools are described as hard followed by "bright red clot" x 2 instances. Associated symptoms include nausea, vomiting, and epigastric pain. She has attempted antacids and eating, which only exacerbate epigastric pain. She is able to tolerate drinking water. She denies fever, chills, neck stiffness, and shortness of breath. - Related Data Home Medications Medication Instructions Recorded Confirmed Pnv No.95/Ferrous Fum/Folic AC 1 tab PO DAILY 05/21/21 10/02/23 [ Multivitamin Tablet] Aspirin [Vazalore] 81 mg PO DAILY 01/13/22 10/02/23 Magnesium 200 mg PO DAILY 02/12/22 10/02/23 Previous Rx's Medication Instructions Recorded Hydrocortisone/Pramoxine 1 applic RECTAL BID #10 gm 05/27/24 [Proctofoam-Hc 1%-1% Foam] Pantoprazole [Protonix] 40 mg PO DAILY #30 tab 05/27/24 Allergies Allergy/AdvReac Type Severity Reaction Status Date / Time morphine Allergy Anaphylaxis Verified 10/02/23 06:14 venom-honey bee Allergy Anaphylaxis Verified 10/02/23 06:14 [bee venom (honey bee)] amoxicillin AdvReac Rash/Hives Verified 10/02/23 06:14 Review of Systems ROS Statement: Those systems with pertinent positive or pertinent negative responses have been documented in the HPI. ROS Other: All systems not noted in ROS Statement are negative. Past Medical History Past Medical History: No Reported History Additional Past Medical History / Comment(s): UTI,kidney stones. ectopic pregnancies History of Any Multi-Drug Resistant Organisms: None Reported Past Surgical History: Section Additional Past Surgical History / Comment(s): pre-cancerous lesion removed from scalp 2009. Left fallopian tube removal 04/2020, lt ovary removed in 04/2021, placental abruption december 2019 , Past Anesthesia/Blood Transfusion Reactions: No Reported Reaction Past Psychological History: No Psychological Hx Reported Smoking Status: Never smoker Past Alcohol Use History: None Reported Past Drug Use History: None Reported - Past Family History Mother Family Medical History: Deep Vein Thrombosis (DVT) General Exam Limitations: no limitations General appearance: alert, in no apparent distress Course Vital Signs 05/27/24 11:09 Temperature 98 F Pulse Rate 80 Respiratory 16 Rate Blood Pressure 133/70 O2 Sat by Pulse 97 Oximetry Medical Decision Making - Medical Decision Making Was pt. sent in by a medical professional or institution (, [facility], COMMODITY LEAD, urgent care, hospital, or shelter...) When possible be specific @ -No Did you speak to anyone other than the patient for history (EMS, parent, family, police, friend...)? What history was obtained from this source @ -No Did you review nursing and triage notes (agree or disagree)? Why? @ -I reviewed and agree with nursing and triage notes Were old charts reviewed (outside hosp., previous admission, EMS record, old EKG, old radiological studies, urgent care reports/EKG's, shelter records)? Report findings @ -No old charts were reviewed Differential Diagnosis (chest pain, altered mental status, abdominal pain women, abdominal pain men, vaginal bleeding, weakness, fever, dyspnea, syncope, headache, dizziness, GI bleed, back pain, seizure, CVA, palpatations, mental health, musculoskeletal)? @ -Differential Abdominal Pain Women: Appendicitis, Cholecystitis, diverticulosis, ischemic bowel, pancreatitis, hepatitis, UTI, gastroenteritis, AAA, incarcerated hernia, bowel obstruction, constipation, inflammatory bowel, hepatitis, peptic ulcer disease, splenic infarction, perforated viscus, vulvitis, ovarian torsion, PID, kidney stone, placenta abruption, this is not meant to be an all-inclusive list EKG interpreted by me (3pts min.). @ -None X-rays interpreted by me (1pt min.). @ -None done CT interpreted by me (1pt min.). @ -None done U/S interpreted by me (1pt. min.). @ -None done What testing was considered but not performed or refused? (CT, X-rays, U/S, labs)? Why? @ -None What meds were considered but not given or refused? Why? @ -None Did you discuss the management of the patient with other professionals (professionals i.e. , [facility], COMMODITY LEAD, lab, RT, psych nurse, director of social work, wet process miller head assistant, teacher, president and chief executive officer, patient case coordinator)? Give summary @ -No Was smoking cessation discussed for >3mins.? @ -No Was critical care preformed (if so, how long)? @ -No Were there social determinants of health that impacted care today? How? (Homelessness, low income, unemployed, alcoholism, drug addiction, transportat ion, low edu. Level, literacy, decrease access to med. care, shelter, rehab)? @ -No Was there de-escalation of care discussed even if they declined (Discuss DNR or withdrawal of care, Hospice)? DNR status @ -No What co-morbidities impacted this encounter? (DM, HTN, Smoking, COPD, CAD, Cancer, CVA, ARF, Chemo, Hep., AIDS, mental health diagnosis, sleep apnea, morbid obesity)? @ -None Was patient admitted / discharged? Hospital course, mention meds given and route, prescriptions, significant lab abnormalities, going to OR and other pertinent info. @ -[Discharge patient presented for abdominal discomfort, upper with rectal bleeding. This more likely related to hemorrhoids. Patient does have some epigastric discomfort and will be treated with and assess for possible gastritis. Patient will follow-up with GI for scope if need be. Patient will be given Proctofoam for hemorrhoids. Undiagnosed new problem with uncertain prognosis? @ -No Drug Therapy requiring intensive monitoring for toxicity (Heparin, Nitro, Insulin, Cardizem)? @ -No Were any procedures done? @ -No Diagnosis/symptom? @ -Rectal bleeding abdominal pain Acute, or Chronic, or Acute on Chronic? @Acute Uncomplicated (without systemic symptoms) or Complicated (systemic symptoms)? @ -Uncomplicated Side effects of treatment? @ -No Exacerbation, Progression, or Severe Exacerbation? @ -No Poses a threat to life or bodily function? How? (Chest pain, USA, [place], pneumonia, PE, COPD, DKA, ARF, appy, cholecystitis, CVA, Diverticulitis, Homicidal, Suicidal, threat to staff... and all critical care pts) @ -No - Lab Data Result diagrams: 05/27/24 12:00 05/27/24 12:00 Lab Results 05/27/24 05/27/24 05/27/24 Range/Units 12:00 12:00 12:23 WBC 6.6 (3.8-10.6) k/uL RBC 4.52 (3.80-5.40) m/uL Hgb 13.3 (11.4-16.0) gm/dL Hct 40.2 (34.0-46.0) % MCV 88.9 (80.0-100.0) fL MCH 29.4 (25.0-35.0) pg MCHC 33.1 (31.0-37.0) g/dL RDW 11.7 (11.5-15.5) % Plt Count 273 (150-450) k/uL MPV 8.1 Neutrophils % 54 % Lymphocytes % 35 % Monocytes % 5 % Eosinophils % 3 % Basophils % 1 % Neutrophils # 3.5 (1.3-7.7) k/uL Lymphocytes # 2.3 (1.0-4.8) k/uL Monocytes # 0.3 (0-1.0) k/uL Eosinophils # 0.2 (0-0.7) k/uL Basophils # 0.1 (0-0.2) k/uL Sodium 138 (137-145) mmol/L Potassium 4.5 (3.5-5.1) mmol/L Chloride 108 H (98-107) mmol/L Carbon Dioxide 25 (22-30) mmol/L Anion Gap 5 mmol/L BUN 15 (7-17) mg/dL Creatinine 0.60 (0.52-1.04) mg/dL Est GFR (CKD-EPI)AfAm >90 (>60 ml/min/1.73 sqM) Est GFR (CKD-EPI)NonAf >90 (>60 ml/min/1.73 sqM) Glucose 95 (74-99) mg/dL Calcium 9.2 (8.4-10.2) mg/dL Total Bilirubin 0.5 (0.2-1.3) mg/dL AST 36 (14-36) U/L ALT 39 H (4-34) U/L Alkaline Phosphatase 67 (38-126) U/L Total Protein 6.8 (6.3-8.2) g/dL Albumin 4.0 (3.5-5.0) g/dL Urine HCG, Qual Not Detected (Not Detectd) Disposition Clinical Impression: Abdominal pain Disposition: HOME SELF-CARE Condition: Stable Instructions (If sedation given, give patient instructions): Rectal Bleeding (ED) Additional Instructions: Please return to the Emergency Department if symptoms worsen or any other concerns. Prescriptions: Hydrocortisone/Pramoxine [Proctofoam-Hc 1%-1% Foam] 1 applic RECTAL BID #10 gm Pantoprazole [Protonix] 40 mg PO DAILY #30 tab Is patient prescribed a controlled substance at d/c from ED?: No Referrals: Masood Steven MD [Primary Care Provider] - 1-2 days Talya Jackson MD [STAFF PHYSICIAN] - 1-2 days Time of Disposition: 13:17
[2024-05-27] MEDS: PANTOPRAZOLE 40 MG/10 ML VIAL IVP STA (12:18)
[2024-05-27] MEDS: SODIUM CHLORIDE 0.9% 1,000 ML IV STA (12:18)
[2024-05-27] MEDS: ONDANSETRON 4 MG/2 ML VIAL IVP STA (12:18)
[2024-05-27 12:19] LABS: ALT 39 U/L (4-34); AST 36 U/L (14-36); African American GFR (CKD) >90 (>60 ml/min/1.73 sqM); Alkaline Phosphatase 67 U/L (38-126); Anion Gap 5 mmol/L; Blood Urea Nitrogen 15 mg/dL (7-17); Calcium 9.2 mg/dL (8.4-10.2); Carbon Dioxide 25 mmol/L (22-30); Chloride 108 mmol/L (98-107); Glucose 95 mg/dL (74-99); Non-African American GFR(CKD) >90 (>60 ml/min/1.73 sqM); Potassium 4.5 mmol/L (3.5-5.1); Sodium 138 mmol/L (137-145); Total Bilirubin 0.5 mg/dL (0.2-1.3); Total Protein 6.8 g/dL (6.3-8.2)
[2024-05-27 13:43] VITALS: BP 118/82; PULSE 68
== END 2024-05-27 13:41 | disposition home or self-care (01) ==
LOC: EC 11:04
DX: K59.00 Constipation, unspecified (principal); Z88.0 Allergy status to penicillin; Z91.030 Bee allergy status; Z88.5 Allergy status to narcotic agent
CPT/HCPCS: 36415; 80053; 81025; 85025; 96361; 96374; 96375; 99284

== ENCOUNTER 2024-06-20 01:05 | Emergency (ER) | payer BC ==
[2024-06-20 01:31] VITALS: PULSE 90
[2024-06-20] MEDS: KETOROLAC 15 MG/ML 1 ML VIAL IVP STA (02:52)
[2024-06-20] MEDS: LORazepam 2 MG/ML INJ IV STA (02:53)
[2024-06-20] MEDS: SODIUM CHLORIDE 0.9% 1,000 ML IV STA (02:55)
[2024-06-20 03:04] LABS: Basophils # (A) 0.1 k/uL (0-0.2); Basophils % (A) 1 %; Eosinophils # (A) 0.3 k/uL (0-0.7); Eosinophils % (A) 2 %; HCT 39.8 % (34.0-46.0); HGB 13.8 gm/dL (11.4-16.0); Lymphocytes # (A) 3.7 k/uL (1.0-4.8); Lymphocytes % (A) 31 %; MCH 30.3 pg (25.0-35.0); MCHC 34.7 g/dL (31.0-37.0); MCV 87.3 fL (80.0-100.0); Mean Platelet Volume 8.4; Monocytes # (A) 0.6 k/uL (0-1.0); Monocytes % (A) 5 %; Neutrophils # (A) 7.3 k/uL (1.3-7.7); Neutrophils % (A) 60 %; Platelet Count 259 k/uL (150-450); RBC 4.56 m/uL (3.80-5.40); RDW 12.4 % (11.5-15.5); WBC 12.2 k/uL (3.8-10.6)
[2024-06-20 03:17] LABS: ALT 74 U/L (4-34); AST 46 U/L (14-36); African American GFR (CKD) >90 (>60 ml/min/1.73 sqM); Albumin 4.2 g/dL (3.5-5.0); Alkaline Phosphatase 73 U/L (38-126); Amylase 52 U/L (30-110); Anion Gap 3 mmol/L; Blood Urea Nitrogen 17 mg/dL (7-17); Calcium 9.1 mg/dL (8.4-10.2); Carbon Dioxide 24 mmol/L (22-30); Chloride 108 mmol/L (98-107); Glucose 68 mg/dL (74-99); Lipase 105 U/L (23-300); Non-African American GFR(CKD) >90 (>60 ml/min/1.73 sqM); Potassium 3.7 mmol/L (3.5-5.1); Sodium 135 mmol/L (137-145); Total Bilirubin 0.4 mg/dL (0.2-1.3)
[2024-06-20 03:28] LABS: INR 0.9 (<1.2); Partial Thromboplastin Time 22.8 sec (22.0-30.0); Prothrombin Time 9.8 sec (10.0-12.5)
--- NOTE | 2024-06-20 04:16 | ED ---
Abdominal Pain HPI - General Chief Complaint: Abdominal Pain Stated Complaint: Chest pain, KODAK Time Seen by Provider: 06/20/24 01:47 Source: patient Mode of arrival: ambulatory Limitations: no limitations - History of Present Illness Initial Comments: 24-year-old female presenting with multiple complaints. Patient states that tonight she began experiencing some chest pain. Pain is a tightness in the center of the chest also accompanied by some shortness of breath. Patient was feeling dizzy as well. Patient is also complaining of lower abdominal pain and rectal bleeding. The symptoms have been ongoing for about a month. Patient has had multiple episodes of dark red bloody stools. She has not yet been seen by GI as she was instructed to at her last visit. No blood thinners. No injuries. No rectal pain. Patient reports constipation. Admits to nausea. No vomiting. - Related Data Home Medications Medication Instructions Recorded Confirmed Pnv No.95/Ferrous Fum/Folic AC 1 tab PO DAILY 05/21/21 10/02/23 [ Multivitamin Tablet] Aspirin [Vazalore] 81 mg PO DAILY 01/13/22 10/02/23 Magnesium 200 mg PO DAILY 02/12/22 10/02/23 Previous Rx's Medication Instructions Recorded Hydrocortisone/Pramoxine 1 applic RECTAL BID #10 gm 05/27/24 [Proctofoam-Hc 1%-1% Foam] Pantoprazole [Protonix] 40 mg PO DAILY #30 tab 05/27/24 Allergies Allergy/AdvReac Type Severity Reaction Status Date / Time morphine Allergy Anaphylaxis Verified 06/20/24 01:26 venom-honey bee Allergy Anaphylaxis Verified 06/20/24 01:26 [bee venom (honey bee)] amoxicillin AdvReac Rash/Hives Verified 06/20/24 01:26 Review of Systems ROS Statement: Those systems with pertinent positive or pertinent negative responses have been documented in the HPI. ROS Other: All systems not noted in ROS Statement are negative. Past Medical History Past Medical History: No Reported History Additional Past Medical History / Comment(s): UTI,kidney stones. ectopic pregnancies History of Any Multi-Drug Resistant Organisms: None Reported Past Surgical History: Section Additional Past Surgical History / Comment(s): pre-cancerous lesion removed from scalp 2009. Left fallopian tube removal 04/2020, lt ovary removed in 04/2021, placental abruption december 2019 , Past Anesthesia/Blood Transfusion Reactions: No Reported Reaction Past Psychological History: Anxiety Smoking Status: Never smoker Past Alcohol Use History: None Reported Past Drug Use History: None Reported - Past Family History Mother Family Medical History: Deep Vein Thrombosis (DVT) General Exam Limitations: no limitations General appearance: alert, anxious Head exam: Present: atraumatic, normocephalic Eye exam: Present: normal appearance, EOMI Neck exam: Present: normal inspection. Absent: meningismus Respiratory exam: Present: normal lung sounds bilaterally. Absent: respiratory distress, wheezes, rales, rhonchi, stridor Cardiovascular Exam: Present: regular rate, normal rhythm, normal heart sounds. Absent: systolic murmur, diastolic murmur, rubs, gallop, clicks GI/Abdominal exam: Present: soft, tenderness (Lower abdomen). Absent: distended, guarding, rebound, rigid Neurological exam: Present: alert, oriented X3 Psychiatric exam: Present: normal affect, normal mood Skin exam: Present: warm, dry Course Vital Signs 06/20/24 06/20/24 01:26 05:56 Temperature 98.5 F 99.0 F Pulse Rate 90 90 Respiratory 22 19 Rate Blood Pressure 131/84 108/72 O2 Sat by Pulse 99 98 Oximetry Medical Decision Making - Medical Decision Making Sinus rhythm with marked sinus arrhythmia. Ventricular rate 92. NH interval 129. QRS 84. QT 314. QTc 363. Was pt. sent in by a medical professional or institution (, PA, LANG PATH THERAPIST, urgent care, hospital, or senior care...) When possible be specific @ -No Did you speak to anyone other than the patient for history (EMS, parent, family, police, friend...)? What history was obtained from this source @ -No Did you review nursing and triage notes (agree or disagree)? Why? @ -I reviewed and agree with nursing and triage notes Were old charts reviewed (outside hosp., previous admission, EMS record, old EKG, old radiological studies, urgent care reports/EKG's, senior care records)? Report findings @ -No old charts were reviewed Differential Diagnosis (chest pain, altered mental status, abdominal pain women, abdominal pain men, vaginal bleeding, weakness, fever, dyspnea, syncope, headache, dizziness, GI bleed, back pain, seizure, CVA, palpatations, mental health, musculoskeletal)? @ -MDM Differential Chest Pain: Stable Angina, Unstable Angina, STEMI, NSTEMI Aortic Dissection, Pneumothorax, Musculoskeletal, Esophageal Spasm GERD, Cholecystitis, Pancreatitis, Zoster This is not meant to be an all-inclusive list. EKG interpreted by me (3pts min.). @ -As above X-rays interpreted by me (1pt min.). @ -Chest x-ray shows slightly diminished lung volumes without focal consolidation or acute cardiopulmonary process identified CT interpreted by me (1pt min.). @ -CT shows rim-enhancing cyst involving the right adnexa along the posterior aspect of the midline pelvis measuring 14 mm. Trace free fluid in the dependent pelvis without loculation. The stomach is moderately distended with retained oral contents. No evidence for focal high-grade bowel obstruction. No small bowel mucosal asymmetry. Moderate stool burden. No appreciable diverticulitis. No pneumoperitoneum. Incidental normal caliber appendix U/S interpreted by me (1pt. min.). @ -None done What testing was considered but not performed or refused? (CT, X-rays, U/S, labs)? Why? @ -None What meds were considered but not given or refused? Why? @ -None Did you discuss the management of the patient with other professionals (professionals i.e. , PA, LANG PATH THERAPIST, lab, RT, psych nurse, executive secretary social welfare, hydraulic design engineer, teacher, gifts officer, manager of case management)? Give summary @ -No Was smoking cessation discussed for >3mins.? @ -No Was critical care preformed (if so, how long)? @ -No Were there social determinants of health that impacted care today? How? (Homelessness, low income, unemployed, alcoholism, drug addiction, trans portation, low edu. Level, literacy, decrease access to med. care, [facility], rehab)? @ -No Was there de-escalation of care discussed even if they declined (Discuss DNR or withdrawal of care, Hospice)? DNR status @ -No What co-morbidities impacted this encounter? (DM, HTN, Smoking, COPD, CAD, Cancer, CVA, ARF, Chemo, Hep., AIDS, mental health diagnosis, sleep apnea, morbid obesity)? @ -None Was patient admitted / discharged? Hospital course, mention meds given and route, prescriptions, significant lab abnormalities, going to OR and other pertinent info. @ -24-year-old female presenting with chief complaint of chest pain. Patient is also complaining of abdominal pain and rectal bleeding which has been ongoing for over a month. While obtaining the history the patient is extremely anxious. History and physical examination are conducted. WBC 12.2. Mild transaminitis. Negative troponin. Lipase is WNL. Urine shows no infectious process. hCG is negative. EKG shows sinus rhythm. Chest x-ray shows no acute process and CT shows right adnexal cyst and constipation. Patient is educated on today's findings. On reassessment she reports improvement in her symptoms. She is instructed to follow-up with GI or general surgery for colonoscopy. Discharged. Follow-up with PCP. Report back to ER with any new or worsening symptoms. Discussed return parameters and answered all questions. Patient conveyed verbal understanding and agreed to the plan. I discussed this case in detail with my attending Dr. Camacho Undiagnosed new problem with uncertain prognosis? @ -No Drug Therapy requiring intensive monitoring for toxicity (Heparin, Nitro, Insulin, Cardizem)? @ -No Were any procedures done? @ -No Diagnosis/symptom? @ -Anxiety, rectal bleeding, constipation Acute, or Chronic, or Acute on Chronic? @ -Acute Uncomplicated (without systemic symptoms) or Complicated (systemic symptoms)? @ -Uncomplicated Side effects of treatment? @ -No Exacerbation, Progression, or Severe Exacerbation? @ -No Poses a threat to life or bodily function? How? (Chest pain, [place], [place], pneumonia, PE, COPD, DKA, ARF, appy, cholecystitis, CVA, Diverticulitis, Homicidal, Suicidal, threat to staff... and all critical care pts) @ -Unlikely - Lab Data Result diagrams: 06/20/24 02:34 06/20/24 02:34 Lab Results 06/20/24 06/20/24 06/20/24 Range/Units 02:34 02:34 02:34 WBC 12.2 H (3.8-10.6) k/uL RBC 4.56 (3.80-5.40) m/uL Hgb 13.8 (11.4-16.0) gm/dL Hct 39.8 (34.0-46.0) % MCV 87.3 (80.0-100.0) fL MCH 30.3 (25.0-35.0) pg MCHC 34.7 (31.0-37.0) g/dL RDW 12.4 (11.5-15.5) % Plt Count 259 (150-450) k/uL MPV 8.4 Neutrophils % 60 % Lymphocytes % 31 % Monocytes % 5 % Eosinophils % 2 % Basophils % 1 % Neutrophils # 7.3 (1.3-7.7) k/uL Lymphocytes # 3.7 (1.0-4.8) k/uL Monocytes # 0.6 (0-1.0) k/uL Eosinophils # 0.3 (0-0.7) k/uL Basophils # 0.1 (0-0.2) k/uL PT 9.8 L (10.0-12.5) sec INR 0.9 (<1.2) APTT 22.8 (22.0-30.0) sec Sodium 135 L (137-145) mmol/L Potassium 3.7 (3.5-5.1) mmol/L Chloride 108 H (98-107) mmol/L Carbon Dioxide 24 (22-30) mmol/L Anion Gap 3 mmol/L BUN 17 (7-17) mg/dL Creatinine 0.72 (0.52-1.04) mg/dL Est GFR (CKD-EPI)AfAm >90 (>60 ml/min/1.73 sqM) Est GFR (CKD-EPI)NonAf >90 (>60 ml/min/1.73 sqM) Glucose 68 L (74-99) mg/dL Plasma Lactic Acid Sabas (0.7-2.0) mmol/L Calcium 9.1 (8.4-10.2) mg/dL Total Bilirubin 0.4 (0.2-1.3) mg/dL AST 46 H (14-36) U/L ALT 74 H (4-34) U/L Alkaline Phosphatase 73 (38-126) U/L Troponin I (0.000-0.034) ng/mL Total Protein 7.0 (6.3-8.2) g/dL Albumin 4.2 (3.5-5.0) g/dL Amylase 52 (30-110) U/L Lipase 105 (23-300) U/L Urine Color Urine Appearance (Clear) Urine pH (5.0-8.0) Ur Specific [place] (1.001-1.035) Urine Protein (Negative) Urine Glucose (UA) (Negative) Urine Ketones (Negative) Urine Blood (Negative) Urine Nitrite (Negative) Urine Bilirubin (Negative) Urine Urobilinogen (<2.0) mg/dL Ur Leukocyte Esterase (Negative) Urine RBC (0-5) /hpf Urine WBC (0-5) /hpf Ur Squamous Epith Cells (0-4) /hpf Urine Bacteria (None) /hpf Urine Mucus (None) /hpf Urine HCG, Qual (Not Detectd) 06/20/24 06/20/24 06/20/24 Range/Units 02:34 02:34 03:48 WBC (3.8-10.6) k/uL RBC (3.80-5.40) m/uL Hgb (11.4-16.0) gm/dL Hct (34.0-46.0) % MCV (80.0-100.0) fL MCH (25.0-35.0) pg MCHC (31.0-37.0) g/dL RDW (11.5-15.5) % Plt Count (150-450) k/uL MPV Neutrophils % % Lymphocytes % % Monocytes % % Eosinophils % % Basophils % % Neutrophils # (1.3-7.7) k/uL Lymphocytes # (1.0-4.8) k/uL Monocytes # (0-1.0) k/uL Eosinophils # (0-0.7) k/uL Basophils # (0-0.2) k/uL PT (10.0-12.5) sec INR (<1.2) APTT (22.0-30.0) sec Sodium (137-145) mmol/L Potassium (3.5-5.1) mmol/L Chloride (98-107) mmol/L Carbon Dioxide (22-30) mmol/L Anion Gap mmol/L BUN (7-17) mg/dL Creatinine (0.52-1.04) mg/dL Est GFR (CKD-EPI)AfAm (>60 ml/min/1.73 sqM) Est GFR (CKD-EPI)NonAf (>60 ml/min/1.73 sqM) Glucose (74-99) mg/dL Plasma Lactic Acid Sabas 0.8 (0.7-2.0) mmol/L Calcium (8.4-10.2) mg/dL Total Bilirubin (0.2-1.3) mg/dL AST (14-36) U/L ALT (4-34) U/L Alkaline Phosphatase (38-126) U/L Troponin I <0.012 (0.000-0.034) ng/mL Total Protein (6.3-8.2) g/dL Albumin (3.5-5.0) g/dL Amylase (30-110) U/L Lipase (23-300) U/L Urine Color Colorless Urine Appearance Clear (Clear) Urine pH 6.5 (5.0-8.0) Ur Specific [place] >1.050 H (1.001-1.035) Urine Protein Negative (Negative) Urine Glucose (UA) Negative (Negative) Urine Ketones Negative (Negative) Urine Blood Negative (Negative) Urine Nitrite Negative (Negative) Urine Bilirubin Negative (Negative) Urine Urobilinogen <2.0 (<2.0) mg/dL Ur Leukocyte Esterase Small H (Negative) Urine RBC 2 (0-5) /hpf Urine WBC 3 (0-5) /hpf Ur Squamous Epith Cells 7 H (0-4) /hpf Urine Bacteria Rare H (None) /hpf Urine Mucus Rare H (None) /hpf Urine HCG, Qual (Not Detectd) 06/20/24 Range/Units 03:48 WBC (3.8-10.6) k/uL RBC (3.80-5.40) m/uL Hgb (11.4-16.0) gm/dL Hct (34.0-46.0) % MCV (80.0-100.0) fL MCH (25.0-35.0) pg MCHC (31.0-37.0) g/dL RDW (11.5-15.5) % Plt Count (150-450) k/uL MPV Neutrophils % % Lymphocytes % % Monocytes % % Eosinophils % % Basophils % % Neutrophils # (1.3-7.7) k/uL Lymphocytes # (1.0-4.8) k/uL Monocytes # (0-1.0) k/uL Eosinophils # (0-0.7) k/uL Basophils # (0-0.2) k/uL PT (10.0-12.5) sec INR (<1.2) APTT (22.0-30.0) sec Sodium (137-145) mmol/L Potassium (3.5-5.1) mmol/L Chloride (98-107) mmol/L Carbon Dioxide (22-30) mmol/L Anion Gap mmol/L BUN (7-17) mg/dL Creatinine (0.52-1.04) mg/dL Est GFR (CKD-EPI)AfAm (>60 ml/min/1.73 sqM) Est GFR (CKD-EPI)NonAf (>60 ml/min/1.73 sqM) Glucose (74-99) mg/dL Plasma Lactic Acid Sabas (0.7-2.0) mmol/L Calcium (8.4-10.2) mg/dL Total Bilirubin (0.2-1.3) mg/dL AST (14-36) U/L ALT (4-34) U/L Alkaline Phosphatase (38-126) U/L Troponin I (0.000-0.034) ng/mL Total Protein (6.3-8.2) g/dL Albumin (3.5-5.0) g/dL Amylase (30-110) U/L Lipase (23-300) U/L Urine Color Urine Appearance (Clear) Urine pH (5.0-8.0) Ur Specific [place] (1.001-1.035) Urine Protein (Negative) Urine Glucose (UA) (Negative) Urine Ketones (Negative) Urine Blood (Negative) Urine Nitrite (Negative) Urine Bilirubin (Negative) Urine Urobilinogen (<2.0) mg/dL Ur Leukocyte Esterase (Negative) Urine RBC (0-5) /hpf Urine WBC (0-5) /hpf Ur Squamous Epith Cells (0-4) /hpf Urine Bacteria (None) /hpf Urine Mucus (None) /hpf Urine HCG, Qual Not Detected (Not Detectd) Disposition Clinical Impression: Rectal bleeding, Anxiety, Constipation Disposition: HOME SELF-CARE Condition: Good Instructions (If sedation given, give patient instructions): Chest Pain (ED), Constipation (ED), Rectal Bleeding (ED), High Fiber Diet (ED) Additional Instructions: Follow-up with your PCP. Follow-up with GI or general surgery for colonoscopy. Take MiraLAX daily to help alleviate constipation. Report back to ER with any new or worsening symptoms. Is patient prescribed a controlled substance at d/c from ED?: No Referrals: None,Stated [Primary Care Provider] - 1-2 days Cristiano Dueñas MD [STAFF PHYSICIAN] - 1-2 days Talya Jackson MD [STAFF PHYSICIAN] - 1-2 days Jasen Chavez MD [STAFF PHYSICIAN] - 1-2 days Time of Disposition: 05:03
[2024-06-20 04:29] LABS: Appearance,Urine Clear (Clear); Bacteria,Urine Rare /hpf; Bilirubin,Urine Negative (Negative); Blood,Urine Negative (Negative); Color,Urine Colorless; Glucose,Urine (UA) Negative (Negative); Ketones,Urine Negative (Negative); Leukocyte Esterase,Urine Small (Negative); Mucus,Urine Rare /hpf; Nitrite,Urine Negative (Negative); PH, Urine 6.5 (5.0-8.0); Protein,Urine Negative (Negative); RBC,Urine 2 /hpf (0-5); Squamous Epithelial Cell,Urine 7 /hpf (0-4); Urobilinogen,Urine <2.0 mg/dL (<2.0); WBC,Urine 3 /hpf (0-5)
--- NOTE | 2024-06-20 04:34 | XR ---
EXAM: XR Chest, 2 Views CLINICAL HISTORY: ITS.REASON XR Reason: chest pain TECHNIQUE: Frontal and lateral views of the chest. COMPARISON: No relevant prior studies available. FINDINGS: Lungs: Slightly diminished lung volumes. No focal airspace consolidation. The pulmonary vasculature is unremarkable. Pleural space: Unremarkable. No pneumothorax. No large pleural effusion. Heart: The cardiac silhouette is upper normal limits in caliber. Mediastinum: Unremarkable. No significant abnormality identified. The trachea is midline. Bones/joints: Unremarkable. No acute fracture. IMPRESSION: Slightly diminished lung volumes without focal consolidation or acute cardiopulmonary process identified.
--- NOTE | 2024-06-20 04:36 | CT ---
EXAM: CT Abdomen and Pelvis With Intravenous Contrast CLINICAL HISTORY: abdominal pain TECHNIQUE: Axial computed tomography images of the abdomen and pelvis with intravenous contrast. CTDI is 18 mGy and DLP is 846.1 mGy-cm. This CT exam was performed using one or more of the following dose reduction techniques: automated exposure control, adjustment of the mA and/or kV according to patient size, and/or use of iterative reconstruction technique. COMPARISON: No relevant prior studies available. FINDINGS: Lung bases: Unremarkable. No mass. No consolidation. ABDOMEN: Liver: Unremarkable. No mass. Gallbladder and bile ducts: Unremarkable. No calcified stones. No ductal dilation. Pancreas: Unremarkable. No mass. No ductal dilation. Spleen: Unremarkable. No splenomegaly. Adrenals: Unremarkable. No mass. Kidneys and ureters: The kidneys demonstrate normal enhancement without pyelonephritis or hydronephrosis. Delayed phase imaging demonstrates normal excreted contrast to the renal collecting systems. Stomach and bowel: The stomach is moderately distended with retained oral contents. No evidence for focal high-grade bowel obstruction. No small bowel mucosal asymmetry. Moderate stool burden. No appreciable diverticulitis. PELVIS: Appendix: A normal retrocecal appendix is noted. Bladder: Unremarkable. No mass. Reproductive: Rim-enhancing cyst involving the right adnexa along the posterior aspect of the midline pelvis, measuring 14 mm. The retroverted uterus and left adnexa are unremarkable. ABDOMEN and PELVIS: Intraperitoneal space: Unremarkable. No free air. No significant fluid collection. Bones/joints: No acute fracture. No dislocation. Soft tissues: Unremarkable. Vasculature: Unremarkable. No abdominal aortic aneurysm. Lymph nodes: Unremarkable. No enlarged lymph nodes. IMPRESSION: 1. Rim-enhancing cyst involving the right adnexa along the posterior aspect of the midline pelvis, measuring 14 mm. Trace free fluid in the dependent pelvis without loculation. The clinical significance of this finding is indeterminant and this may be incidental. 2. The stomach is moderately distended with retained oral contents. No evidence for focal high-grade bowel obstruction. No small bowel mucosal asymmetry. Moderate stool burden. No appreciable diverticulitis. No pneumoperitoneum. Incidental normal caliber appendix.
[2024-06-20 04:52] LABS: Specific Gravity,Urine >1.050 (1.001-1.035)
[2024-06-20 05:58] VITALS: BP 108/72; RESP 19; TEMP 99
== END 2024-06-20 05:55 | disposition home or self-care (01) ==
LOC: EC 01:05
CPT/HCPCS: 36415; 71046; 74177; 80053; 81001; 81025; 82150; 83605; 83690; 84484; 85025; 85610; 85730; 93005

== ENCOUNTER 2024-08-28 13:43 | Emergency (ER) | payer BC, OTHER ==
[2024-08-28 14:28] LABS: Appearance,Urine Clear (Clear); Bilirubin,Urine Negative (Negative); Blood,Urine Negative (Negative); Color,Urine Colorless; Glucose,Urine (UA) Negative (Negative); Ketones,Urine Negative (Negative); Leukocyte Esterase,Urine Trace (Negative); Mucus,Urine Rare /hpf; Nitrite,Urine Negative (Negative); PH, Urine 6.5 (5.0-8.0); Protein,Urine Negative (Negative); RBC,Urine 2 /hpf (0-5); Specific Gravity,Urine 1.011 (1.001-1.035); Squamous Epithelial Cell,Urine 5 /hpf (0-4); Urobilinogen,Urine <2.0 mg/dL (<2.0); WBC,Urine 1 /hpf (0-5)
[2024-08-28 14:30] LABS: ALT 28 U/L (4-34); AST 22 U/L (14-36); African American GFR (CKD) >90 (>60 ml/min/1.73 sqM); Albumin 4.1 g/dL (3.5-5.0); Alkaline Phosphatase 66 U/L (38-126); Amylase 48 U/L (30-110); Anion Gap 11 mmol/L; Blood Urea Nitrogen 15 mg/dL (7-17); Calcium 9.2 mg/dL (8.4-10.2); Carbon Dioxide 22 mmol/L (22-30); Chloride 104 mmol/L (98-107); Glucose 109 mg/dL (74-99); Lipase 63 U/L (23-300); Non-African American GFR(CKD) >90 (>60 ml/min/1.73 sqM); Potassium 3.9 mmol/L (3.5-5.1); Sodium 137 mmol/L (137-145); Total Bilirubin 0.8 mg/dL (0.2-1.3); Total Protein 6.9 g/dL (6.3-8.2)
[2024-08-28 14:38] LABS: Basophils % (A) 1 %; Eosinophils # (A) 0.1 k/uL (0-0.7); Eosinophils % (A) 1 %; HCT 40.1 % (34.0-46.0); HGB 13.5 gm/dL (11.4-16.0); Lymphocytes # (A) 2.6 k/uL (1.0-4.8); Lymphocytes % (A) 36 %; MCHC 33.6 g/dL (31.0-37.0); MCV 86.3 fL (80.0-100.0); Mean Platelet Volume 8.4; Monocytes # (A) 0.4 k/uL (0-1.0); Monocytes % (A) 5 %; Neutrophils # (A) 3.9 k/uL (1.3-7.7); Neutrophils % (A) 55 %; Platelet Count 249 k/uL (150-450); RBC 4.65 m/uL (3.80-5.40); RDW 12.4 % (11.5-15.5); WBC 7.1 k/uL (3.8-10.6)
[2024-08-28 14:40] LABS: INR 0.9 (<1.2); Partial Thromboplastin Time 23.2 sec (22.0-30.0); Prothrombin Time 10.6 sec (10.0-12.5)
[2024-08-28] MEDS: ONDANSETRON 4 MG/2 ML VIAL IVP STA (15:13)
[2024-08-28] MEDS: SODIUM CHLORIDE 0.9% 1,000 ML IV STA (15:13)
--- NOTE | 2024-08-28 15:55 | CT ---
EXAMINATION TYPE: CT abdomen pelvis w con DATE OF EXAM: 08/28/2024 3:33 PM COMPARISON: Previous CT abdomen/pelvis 06/20/2024. CLINICAL INDICATION: Female, 24 years old with history of Left abdominal pain, hematochezia; Pt was s ent here from urgent for further testing of possible jaundice. Pt has had yellow sclera since last n ight. She has also had blood in her stool over the last 3 months. TECHNIQUE: Axial CT abdomen pelvis w con;Sagittal and coronal reformats were created on a separate w orkstation. Contrast used:100 ml mL of Isovue 300 with IV Contrast, (none if empty) Oral contrast used: without Oral Contrast (none if empty) CT DLP: 949.6 mGycm, Automated exposure control for dose reduction was used. FINDINGS: LOWER CHEST: Unremarkable ABDOMEN LIVER: Unremarkable GALLBLADDER AND BILE DUCTS: Unremarkable. PANCREAS: Unremarkable. SPLEEN: Unremarkable. ADRENAL GLANDS: Unremarkable. KIDNEYS AND URETERS: No evidence of hydronephrosis or renal calculus. The ureters are unremarkable. PELVIS BLADDER: No evidence for wall thickening or mass given limitations of exam. REPRODUCTIVE: Unremarkable. ABDOMEN & PELVIS STOMACH AND BOWEL: Stomach and duodenum are unremarkable No evidence of bowel obstruction. Appendix n ormal. PERITONEUM/RETROPERITONEUM: No evidence of pneumoperitoneum or free fluid. VASCULATURE: No evidence of aortic aneurysm. MUSCULOSKELETAL: No acute osseous abnormalities LYMPH NODES: No gross evidence for lymphadenopathy. SOFT TISSUE/ABDOMINAL WALL: Unremarkable IMPRESSION: No acute abnormality in the abdomen/pelvis or CT findings to explain reported symptoms. [facility], , 08/28/2024 3:53 PM
--- NOTE | 2024-08-28 16:15 | ED ---
Abdominal Pain HPI - General Chief Complaint: Abdominal Pain Stated Complaint: poss jaundice Time Seen by Provider: 08/28/24 13:58 Source: patient, RN notes reviewed Mode of arrival: ambulatory - History of Present Illness Initial Comments: This is a 24-year-old female presenting with left abdominal pain (5/10) x 1 month. Patient states symptoms originally started with blood in stool 3 months ago. Endorses fatigue, anorexia, constipation, nausea/vomiting with hematemesis (x 1 week) since that time. Endorses increased weight gain water retention and BLE pitting edema as well as BLE telangiectasia x 2 months. Patient states she was sent to ER following discovery of possible scleral icterus. Denies fever, chills, chest pain, dyspnea, dizziness. MD Complaint: abdominal pain Onset/Timin -: month(s) Location: LUQ Radiation: LLQ, L flank Severity scale (1-10): 5 Quality: aching Consistency: constant Associated Symptoms: nausea, vomiting, hematemesis, anorexia - Related Data Home Medications Medication Instructions Recorded Confirmed Pnv No.[id number]/Ferrous Fum/Folic AC 1 tab PO DAILY 05/21/21 10/02/23 [ Multivitamin Tablet] Aspirin [Vaz[place]] 81 mg PO DAILY 01/13/22 10/02/23 Magnesium 200 mg PO DAILY 02/12/22 10/02/23 Previous Rx's Medication Instructions Recorded Hydrocortisone/Pramoxine 1 applic RECTAL BID #10 gm 05/27/24 [Proctofoam-Hc 1%-1% Foam] Pantoprazole [Protonix] 40 mg PO DAILY #30 tab 05/27/24 Allergies Allergy/AdvReac Type Severity Reaction Status Date / Time morphine Allergy Anaphylaxis Verified 08/28/24 13:55 venom-honey bee Allergy Anaphylaxis Verified 08/28/24 13:55 [bee venom (honey bee)] amoxicillin AdvReac Rash/Hives Verified 08/28/24 13:55 Review of Systems ROS Statement: Those systems with pertinent positive or pertinent negative responses have been documented in the HPI. ROS Other: All systems not noted in ROS Statement are negative. Past Medical History Past Medical History: No Reported History Additional Past Medical History / Comment(s): UTI,kidney stones. ectopic pregnancies History of Any Multi-Drug Resistant Organisms: None Reported Past Surgical History: Section Additional Past Surgical History / Comment(s): pre-cancerous lesion removed from scalp 2009. Left fallopian tube removal 04/2020, lt ovary removed in 04/2021, placental abruption december 2019 , Past Anesthesia/Blood Transfusion Reactions: No Reported Reaction Past Psychological History: Anxiety Smoking Status: Never smoker Past Alcohol Use History: None Reported Past Drug Use History: None Reported - Past Family History Mother Family Medical History: Deep Vein Thrombosis (DVT) General Exam General appearance: alert, in no apparent distress Head exam: Present: atraumatic, normocephalic, normal inspection Eye exam: Present: normal appearance, PERRL, EOMI. Absent: scleral icterus, conjunctival injection, periorbital swelling ENT exam: Present: normal exam, mucous membranes moist Neck exam: Present: normal inspection. Absent: tenderness, meningismus, lymphadenopathy Respiratory exam: Present: normal lung sounds bilaterally. Absent: respiratory distress, wheezes, rales, rhonchi, stridor Cardiovascular Exam: Present: regular rate, normal rhythm, normal heart sounds. Absent: systolic murmur, diastolic murmur, rubs, gallop, clicks GI/Abdominal exam: Present: soft, tenderness (Diffuse tenderness, especially LUQ and epigastric region without guarding. Patient notes nausea and sweating with LUQ palpation), normal bowel sounds. Absent: distended, guarding, rebound, rigid Extremities exam: Present: normal inspection, full ROM, normal capillary refill, other (Bilateral posterior tibialis pulse +2). Absent: tenderness, pedal edema, joint swelling, calf tenderness Back exam: Present: normal inspection Neurological exam: Present: alert, oriented X3, CN II-XII intact Psychiatric exam: Present: normal affect, normal mood Skin exam: Present: warm, dry, intact, normal color. Absent: rash Course Vital Signs 08/28/24 08/28/24 13:50 16:08 Temperature 97.4 F L 98 F Pulse Rate 71 70 Respiratory 18 14 Rate Blood Pressure 118/74 93/60 O2 Sat by Pulse 100 97 Oximetry Medical Decision Making - Medical Decision Making Was pt. sent in by a medical professional or institution (, PA, FOREST ECONOMICS PROFESSOR, urgent care, hospital, or group home...) When possible be specific @ -[No] Did you speak to anyone other than the patient for history (EMS, parent, family, police, friend...)? What history was obtained from this source @ -[No] Did you review nursing and triage notes (agree or disagree)? Why? @ -[I reviewed and agree with nursing and triage notes] Were old charts reviewed (outside hosp., previous admission, EMS record, old EKG, old radiological studies, urgent care reports/EKG's, group home records)? Report findings @ -[No old charts were reviewed] Differential Diagnosis (chest pain, altered mental status, abdominal pain women, abdominal pain men, vaginal bleeding, weakness, fever, dyspnea, syncope, headache, dizziness, GI bleed, back pain, seizure, CVA, palpatations, mental health, musculoskeletal)? @ -Differential Abdominal Pain Women: Appendicitis, Cholecystitis, diverticulosis, ischemic bowel, pancreatitis, hepatitis, UTI, gastroenteritis, AAA, incarcerated hernia, bowel obstruction, constipation, inflammatory bowel, hepatitis, peptic ulcer disease, splenic infarction, perforated viscus, vulvitis, ovarian torsion, PID, kidney stone, placenta abruption, this is not meant to be an all-inclusive list EKG interpreted by me (3pts min.). @ -Not done X-rays interpreted by me (1pt min.). @ -[None done] CT interpreted by me (1pt min.). @ -[None done] U/S interpreted by me (1pt. min.). @ -[None done] What testing was considered but not performed or refused? (CT, X-rays, U/S, labs)? Why? @ -[None] What meds were considered but not given or refused? Why? @ -[None] Did you discuss the management of the patient with other professionals (professionals i.e. , PA, FOREST ECONOMICS PROFESSOR, lab, RT, psych nurse, addiction social worker, bilingual spanish inbound sales, teacher, public information officer, family service caseworker)? Give summary @ -[No] Was smoking cessation discussed for >3mins.? @ -[No] Was critical care preformed (if so, how long)? @ -[No] Were there social determinants of health that impacted care today? How? (Homelessness, low income, unemployed, alcoholism, drug addiction, transportation, low edu. Level, literacy, decrease access to med. care, group home, rehab)? @ -[No] Was there de-escalation of care discussed even if they declined (Discuss DNR or withdrawal of care, Hospice)? DNR status @ -[No] What co-morbidities impacted this encounter? (DM, HTN, Smoking, COPD, CAD, Cancer, CVA, ARF, Chemo, Hep., AIDS, mental health diagnosis, sleep apnea, morbid obesity)? @ -[None] Was patient admitted / discharged? Hospital course, mention meds given and route, prescriptions, significant lab abnormalities, going to OR and other pertinent info. @ -[hospital course] Undiagnosed new problem with uncertain prognosis? @ -[No] Drug Therapy requiring intensive monitoring for toxicity (Heparin, Nitro, Insulin, Cardizem)? @ -[No] Were any procedures done? @ -[No] Diagnosis/symptom? @ -[default] Acute, or Chronic, or Acute on Chronic? @ -Acute Uncomplicated (without systemic symptoms) or Complicated (systemic symptoms)? @ -Complicated Side effects of treatment? @ -[No] Exacerbation, Progression, or Severe Exacerbation? @ -[No] Poses a threat to life or bodily function? How? (Chest pain, USA, ID, pneumonia, PE, COPD, DKA, ARF, appy, cholecystitis, CVA, Diverticulitis, Homicidal, Suicidal, threat to staff... and all critical care pts) @ -[No] - Lab Data Result diagrams: 08/28/24 14:00 08/28/24 14:00 Lab Results 08/28/24 08/28/24 08/28/24 Range/Units 14:00 14:00 14:00 WBC 7.1 (3.8-10.6) k/uL RBC 4.65 (3.80-5.40) m/uL Hgb 13.5 (11.4-16.0) gm/dL Hct 40.1 (34.0-46.0) % MCV 86.3 (80.0-100.0) fL MCH 29.0 (25.0-35.0) pg MCHC 33.6 (31.0-37.0) g/dL RDW 12.4 (11.5-15.5) % Plt Count 249 (150-450) k/uL MPV 8.4 Neutrophils % 55 % Lymphocytes % 36 % Monocytes % 5 % Eosinophils % 1 % Basophils % 1 % Neutrophils # 3.9 (1.3-7.7) k/uL Lymphocytes # 2.6 (1.0-4.8) k/uL Monocytes # 0.4 (0-1.0) k/uL Eosinophils # 0.1 (0-0.7) k/uL Basophils # 0.0 (0-0.2) k/uL PT 10.6 (10.0-12.5) sec INR 0.9 (<1.2) APTT 23.2 (22.0-30.0) sec Sodium 137 (137-145) mmol/L Potassium 3.9 (3.5-5.1) mmol/L Chloride 104 (98-107) mmol/L Carbon Dioxide 22 (22-30) mmol/L Anion Gap 11 mmol/L BUN 15 (7-17) mg/dL Creatinine 0.55 (0.52-1.04) mg/dL Est GFR (CKD-EPI)AfAm >90 (>60 ml/min/1.73 sqM) Est GFR (CKD-EPI)NonAf >90 (>60 ml/min/1.73 sqM) Glucose 109 H (74-99) mg/dL Plasma Lactic Acid [place] (0.7-2.0) mmol/L Calcium 9.2 (8.4-10.2) mg/dL Total Bilirubin 0.8 (0.2-1.3) mg/dL AST 22 (14-36) U/L ALT 28 (4-34) U/L Alkaline Phosphatase 66 (38-126) U/L Total Protein 6.9 (6.3-8.2) g/dL Albumin 4.1 (3.5-5.0) g/dL Amylase 48 (30-110) U/L Lipase 63 (23-300) U/L Urine Color Urine Appearance (Clear) Urine pH (5.0-8.0) Ur Specific [place] (1.001-1.035) Urine Protein (Negative) Urine Glucose (UA) (Negative) Urine Ketones (Negative) Urine Blood (Negative) Urine Nitrite (Negative) Urine Bilirubin (Negative) Urine Urobilinogen (<2.0) mg/dL Ur Leukocyte Esterase (Negative) Urine RBC (0-5) /hpf Urine WBC (0-5) /hpf Ur Squamous Epith Cells (0-4) /hpf Urine Mucus (None) /hpf Urine HCG, Qual (Not Detectd) 08/28/24 08/28/24 08/28/24 Range/Units 14:00 14:20 14:20 WBC (3.8-10.6) k/uL RBC (3.80-5.40) m/uL Hgb (11.4-16.0) gm/dL Hct (34.0-46.0) % MCV (80.0-100.0) fL MCH (25.0-35.0) pg MCHC (31.0-37.0) g/dL RDW (11.5-15.5) % Plt Count (150-450) k/uL MPV Neutrophils % % Lymphocytes % % Monocytes % % Eosinophils % % Basophils % % Neutrophils # (1.3-7.7) k/uL Lymphocytes # (1.0-4.8) k/uL Monocytes # (0-1.0) k/uL Eosinophils # (0-0.7) k/uL Basophils # (0-0.2) k/uL PT (10.0-12.5) sec INR (<1.2) APTT (22.0-30.0) sec Sodium (137-145) mmol/L Potassium (3.5-5.1) mmol/L Chloride (98-107) mmol/L Carbon Dioxide (22-30) mmol/L Anion Gap mmol/L BUN (7-17) mg/dL Creatinine (0.52-1.04) mg/dL Est GFR (CKD-EPI)AfAm (>60 ml/min/1.73 sqM) Est GFR (CKD-EPI)NonAf (>60 ml/min/1.73 sqM) Glucose (74-99) mg/dL Plasma Lactic Acid [place] 1.6 (0.7-2.0) mmol/L Calcium (8.4-10.2) mg/dL Total Bilirubin (0.2-1.3) mg/dL AST (14-36) U/L ALT (4-34) U/L Alkaline Phosphatase (38-126) U/L Total Protein (6.3-8.2) g/dL Albumin (3.5-5.0) g/dL Amylase (30-110) U/L Lipase (23-300) U/L Urine Color Colorless Urine Appearance Clear (Clear) Urine pH 6.5 (5.0-8.0) Ur Specific [place] 1.011 (1.001-1.035) Urine Protein Negative (Negative) Urine Glucose (UA) Negative (Negative) Urine Ketones Negative (Negative) Urine Blood Negative (Negative) Urine Nitrite Negative (Negative) Urine Bilirubin Negative (Negative) Urine Urobilinogen <2.0 (<2.0) mg/dL Ur Leukocyte Esterase Trace H (Negative) Urine RBC 2 (0-5) /hpf Urine WBC 1 (0-5) /hpf Ur Squamous Epith Cells 5 H (0-4) /hpf Urine Mucus Rare H (None) /hpf Urine HCG, Qual Not Detected (Not Detectd) Disposition Clinical Impression: Acute abdomen Disposition: HOME SELF-CARE Condition: Good Is patient prescribed a controlled substance at d/c from ED?: No Referrals: Bashir Wheeler MD [Primary Care Provider] - 1-2 days Time of Disposition: 16:47
[2024-08-28 17:32] VITALS: BP 117/76; PULSE 52; RESP 18; TEMP 98.2
== END 2024-08-28 17:32 | disposition home or self-care (01) ==
LOC: EC 13:43
DX: R10.12 Left upper quadrant pain (principal); Z88.0 Allergy status to penicillin; Z88.5 Allergy status to narcotic agent; Z91.030 Bee allergy status
CPT/HCPCS: 36415; 80053; 82150; 83605; 83690; 85025; 85610; 85730; 81001; 81025; 74177; 99284; 96374; 96361; J2405; Q9967